=== PATIENT | female | born 1960 | race Caucasian/White ===

== ENCOUNTER 2017-04-26 10:44 | Inpatient (IN) | payer OTHER ==
[~2017-04-26] VITALS: Ht 152.4 cm; Wt 57.0 kg
[2017-04-26] MEDS ORDERED: ALBUTEROL 0.083% (NEB) 2.5 MG/3 ML AMP NEB STA (10:50)
[2017-04-26] MEDS ORDERED: IPRATROPIUM (NEB) 0.5 MG/2.5 ML AMP NEB STA (10:50)
[2017-04-26 11:31] LABS: AADO2 Arterial 231.1 mmHg (7.0-24.0); Allen Test ACCEPTAB; Arterial Base Excess 1.1 mmol/L (-3.0-3); Arterial COHb 2.2 % (0.0-3.0); Arterial Fraction of Oxyhgb 95.2 % (93.0-99.0); Arterial HCO3 25.7 mmol/L (22.0-26.0); Arterial MetHb 0.3 % (0.0-1.5); Arterial Total Hemglobin 11.7 g/dl (12.0-18.0); MODE NEB MASK
[2017-04-26] MEDS ORDERED: TRAM50TA2 PO (11:34)
[2017-04-26] MEDS ORDERED: ASCO500C7 PO (11:35)
[2017-04-26] MEDS ORDERED: RIVA15TA PO (11:35)
[2017-04-26] MEDS ORDERED: ACET-2047 PO (11:37)
[2017-04-26] MEDS ORDERED: FER325 PO (11:37)
[2017-04-26] MEDS ORDERED: CRAN425C2 PO (11:39)
[2017-04-26] MEDS ORDERED: FAMO20TA18 PO (11:39)
[2017-04-26] MEDS ORDERED: DOCU-159 PO (11:39)
[2017-04-26] MEDS ORDERED: GABA300C16 PO (11:39)
[2017-04-26] MEDS ORDERED: MIDO10TA PO (11:40)
[2017-04-26] MEDS ORDERED: MULTI PO (11:40)
[2017-04-26 11:50] LABS: BASOPHILS % 0.5 % (0.0-2.0); EOSINOPHILS # 0.1 10^3/ul (0.0-0.5); EOSINOPHILS % 1.5 % (0.0-7.0); HEMATOCRIT 31.9 % (37.0-47.0); HEMOGLOBIN 9.8 g/dl (12.0-16.0); LYMPHOCYTES # 2.5 10^3/ul (0.8-2.9); LYMPHOCYTES % 29.4 % (15.0-51.0); MEAN CORPUSCULAR HEMOGLOBIN 24.6 pg (29.0-33.0); MEAN CORPUSCULAR HGB CONC 30.7 g/dl (32.0-37.0); MEAN CORPUSCULAR VOLUME 79.9 fl (82.0-101.0); MONOCYTE # 0.6 10^3/ul (0.3-0.9); MONOCYTES % 7.6 % (0.0-11.0); NEUTROPHIL # 5.2 10^3/ul (1.6-7.5); NEUTROPHILS % 60.8 % (39.0-77.0); PLATELET COUNT 591 10^3/UL (140-415); RED BLOOD COUNT 3.99 10^6/ul (4.20-5.40); RED CELL DISTRIBUTION WIDTH 15.9 % (11.5-14.5); WHITE BLOOD COUNT 8.5 10^3/ul (4.8-10.8)
[2017-04-26 11:56] LABS: ADD UMIC YES; UR ASCORBIC ACID 40 mg/dL (NEGATIVE); UR BACTERIA MODERATE /HPF (NONE SEEN); UR BILIRUBIN (Dip) NEGATIVE (NEGATIVE); UR BLOOD (Dip) NEGATIVE (NEGATIVE); UR CLARITY TURBID (CLEAR); UR COLOR AMBER (YELLOW); UR GLUCOSE (Dip) NEGATIVE (NEGATIVE); UR KETONES (Dip) 1+ mg/dL (NEGATIVE); UR LEUKOCYTE ESTERASE (Dip) 3+ Leu/ul (NEGATIVE); UR MUCUS MODERATE /HPF (NONE SEEN); UR NITRITE (Dip) POSITIVE (NEGATIVE); UR NONSQUAMOUS EPITHELIAL CELL 4 /HPF (NONE SEEN); UR RBC > 182 /HPF (0-5); UR SPECIFIC GRAVITY (Dip) 1.026 (1.003-1.030); UR TOTAL PROTEIN (Dip) 3+ mg/dl (NEGATIVE); UR UROBILINOGEN (Dip) NEGATIVE (NEGATIVE)
--- NOTE | 2017-04-26 12:01 | RADRPT ---
PROCEDURE: XR Chest 1 View. CLINICAL INDICATION: Shortness of breath. Possible sepsis. TECHNIQUE: AP view of the chest was obtained. COMPARISON: None. FINDINGS: The cardiomediastinal silhouette is within normal limits. Scattered atelectasis is seen in the bilat eral lower lungs. No consolidations are identified. No pneumothorax is seen. The right costophrenic angle is not included on the obtained film. Old, healed fractures of the lateral right second and t hird ribs are seen. Osseous structures are intact. IMPRESSION: Limited exam with the right costophrenic angle not included on the obtained film. Repeat exam can be considered. Scattered atelectasis in the bilateral lower lungs. RPTAT: AA .Michael Alfaro MD, Date Time Electronically viewed and signed by .Michael Alfaro MD, MD on 04/26/2017 12:01 .P/
[2017-04-26 12:11] LABS: INR 1.09; PROTIME 14.1 Sec (12.2-14.2); PT RATIO 1.1
[2017-04-26 12:12] LABS: PARTIAL THROMBOPLASTIN TIME 49.4 Sec (25.0-35.0)
[2017-04-26 12:16] LABS: ALANINE AMINOTRANSFERASE 18 IU/L (13-69); ALBUMIN 3.6 g/dl (3.3-4.9); ALKALINE PHOSPHATASE 146 IU/L (42-121); ANION GAP 14 (8-16); ASPARTATE AMINO TRANSFERASE 23 IU/L (15-46); BILIRUBIN,INDIRECT 0.1 mg/dl (0-1.1); BILIRUBIN,TOTAL 0.1 mg/dl (0.2-1.3); BLOOD UREA NITROGEN 15 mg/dl (7-20); CALCIUM 9.4 mg/dl (8.4-10.2); CARBON DIOXIDE 27 mmol/L (21-31); CHLORIDE 105 mmol/L (97-110); CREATININE 0.35 mg/dl (0.44-1.00); GLUCOSE 106 mg/dl (70-220); POTASSIUM 3.8 mmol/L (3.5-5.1); SODIUM 142 mmol/L (135-144); TOTAL PROTEIN 8.1 g/dl (6.1-8.1)
[2017-04-26] MEDS ORDERED: SODIUM CHLORIDE 0.9% 1L BAG IV* STA (12:23)
[2017-04-26] MEDS ORDERED: CEFEPIME 2GM/50 ML (PMX) 50 ML IVPB STA (12:23)
[2017-04-26 12:26] LABS: B-TYPE NATRIURETIC PEPTIDE 204 PG/ML (0-125)
[2017-04-26 12:27] LABS: TROPONIN-I < 0.012 ng/ml (0.00-0.12)
[2017-04-26] MEDS ORDERED: VANCOMYCIN 1 GM (PMX) 250 ML IVPB ONE (12:30)
--- NOTE | 2017-04-26 13:16 | ERD ---
ER Documentation Chief Complaint Chief Complaint Pt BIB RA [id number] from [facility] facility with c/o SOB. HPI This is a 56-year-old female with a history of quadriplegia who [facility] with shortness of breath. EMS reports that she was 77% on room air at [facility] responsive to breathing treatment. The patient does describe shortness of breath, unclear duration. She denies any chest pain or pleuritic pain. She denies history of DVT. She has never had a visit to [facility] before. No fever reported. ROS All systems reviewed and are negative except as per history of present illness. Medications Home Meds Reported Medications Multivitamins* (Theragran*) 1 Tab Tab, 1 TAB PO DAILY, TAB 04/26/17 Midodrine* (Midodrine*) 10 Mg Tablet, 10 MG PO TID, TAB 04/26/17 Gabapentin* (Gabapentin*) 300 Mg Capsule, 600 MG PO TID, #180 CAP 04/26/17 Famotidine* (Famotidine*) 20 Mg Tablet, 20 MG PO DAILY, #30 TAB 04/26/17 Docusate Sodium* (Docusate Sodium*) 100 Mg Capsule, 100 MG PO BID, #60 CAP 04/26/17 Cranberry Extract (Cranberry) 425 Mg Capsule, 425 MG PO DAILY, CAP 04/26/17 Acetaminophen* (Acetaminophen*) 650 Mg Tablet, 650 MG PO Q4 Y for PAIN AND OR ELEVATED TEMP, #30 TAB 04/26/17 Ferrous Sulfate* (Ferrous Sulfate*) 325 Mg Tabec, 325 MG PO TID, TAB 04/26/17 Rivaroxaban* (Xarelto*) 15 Mg Tablet, 15 MG PO WITH BREAKFAST DINNE, TAB 04/26/17 Ascorbic Acid* (Vitamin C*) 500 Mg Capsule.sa, 500 MG PO DAILY, CAP 04/26/17 Tramadol HCl (Tramadol HCl) 50 Mg Tablet, 50 MG PO Q8 Y for PAIN, #120 TAB 04/26/17 Allergies Allergies: Coded Allergies: fish derived (Verified Allergy, Severe, 04/26/17) shellfish derived (Verified Allergy, Unknown, 04/26/17) PMhx/Soc History of Surgery: Yes (C-Spine surgery) Anesthesia Reaction: No Hx 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 Disorder: Yes (Quaddriplegia, nuerologic bladder) Hx Respiratory Disorders: No Hx Cardiac Disorders: Yes (hypotension.) Hx Psychiatric Problems: No Hx Miscellaneous Medical Probl: Yes (GERD,) Hx Alcohol Use: No Hx Substance Use: No Hx Tobacco Use: No Smoking Status: Former smoker FmHx Family History: No diabetes Physical Exam Vitals Vital Signs Date Time Temp Pulse Resp B/P Pulse Ox O2 Delivery O2 Flow Rate FiO2 04/26/17 13:03 97.9 92 18 117/58 100 Nasal Cannula 2.0 04/26/17 11:30 2.0 04/26/17 11:04 2.0 04/26/17 11:04 100 18 99 Nasal Cannula 2.0 04/26/17 11:04 97.6 99 20 98/61 100 Physical Exam General: Slight increased work of breathing Head: Normocephalic, atraumatic. Eyes: Pupils equally reactive, EOM intact ENT: Moist mucous membranes Neck: Supple, no lymphadenopathy Respiratory: Diffuse rhonchi, slight increased work of breathing and tachypnea Cardiovascular: Slight tachycardia, no murmurs, rubs, or gallops Abdominal: Soft, non-tender, non-distended, no peritoneal signs : Deferred MSK: Limited movement of all 4 extremities which appears to be baseline, no bony abnormalities Neurologic: Limited exam, conversive, limited movement of all 4 extremities Skin: No rash, no significant breakdown Psych: Unable to assess Result Diagram: 04/26/17 1110 04/26/17 1110 Results 24 hrs Laboratory Tests Test 04/26/17 10:50 04/26/17 11:10 Blood Gas Specimen Source Blood arterial Arterial Blood Date Drawn 04/26/2017 11:20:30 AM Arterial Blood pH (Temp corrected) 7.419 Arterial Blood pCO2 (Temp correct) 40.6mmhg Arterial Blood pO2 (Temp corrected) 101.4mmHG Arterial Blood HCO3 25.7mmol/L Arterial Blood Base Excess 1.1mmol/L Arterial Blood Oxygen Saturation 97.6mmHG Tyler Test ACCEPTAB Arterial Blood Gas Puncture Site Right Radial Arterial Blood Carboxyhemoglobin 2.2% Arterial Blood Methemoglobin 0.3% Blood Gas A-a O2 Differential 231.1mmHg Oxyhemoglobin Percent 95.2% Total Hemoglobin 11.7g/dl Blood Gas Temperature 37.0C Blood Gas Modality NEB MASK FiO2 53.0% Blood Gas Notified Whom JLD Blood Gas Notified Time 04/26/2017 11:31:16 AM White Blood Count 8.510^3/ul Red Blood Count 3.9910^6/ul Hemoglobin 9.8g/dl Hematocrit 31.9% Mean Corpuscular Volume 79.9fl Mean Corpuscular Hemoglobin 24.6pg Mean Corpuscular Hemoglobin Concent 30.7g/dl Red Cell Distribution Width 15.9% Platelet Count 55924^3/UL Mean Platelet Volume 9.0fl Neutrophils % 60.8% Lymphocytes % 29.4% Monocytes % 7.6% Eosinophils % 1.5% Basophils % 0.5% Nucleated Red Blood Cells % 0.0/100WBC Neutrophils # 5.210^3/ul Lymphocytes # 2.510^3/ul Monocytes # 0.610^3/ul Eosinophils # 0.110^3/ul Basophils # 0.010^3/ul Nucleated Red Blood Cells # 0.010^3/ul Prothrombin Time 14.1Sec Prothrombin Time Ratio 1.1 INR International Normalized Ratio 1.09 Activated Partial Thromboplast Time 49.4Sec Urine Color SUNSHINE Urine Clarity TURBID Urine pH 8.0 Urine Specific [place] 1.026 Urine Ketones 1+mg/dL Urine Nitrite POSITIVEmg/dL Urine Bilirubin NEGATIVEmg/dL Urine Urobilinogen NEGATIVEmg/dL Urine Leukocyte Esterase 3+Castillo/ul Urine Microscopic RBC > 182/HPF Urine Microscopic WBC > 182/HPF Urine Bacteria MODERATE/HPF Urine Mucus MODERATE/HPF Urine Hemoglobin NEGATIVEmg/dL Urine Glucose NEGATIVEmg/dL Urine Total Protein 3+mg/dl Sodium Level 142mmol/L Potassium Level 3.8mmol/L Chloride Level 105mmol/L Carbon Dioxide Level 27mmol/L Anion Gap 14 Blood Urea Nitrogen 15mg/dl Creatinine 0.35mg/dl Glucose Level 106mg/dl Lactic Acid Level 1.2mmol/L Calcium Level 9.4mg/dl Total Bilirubin 0.1mg/dl Direct Bilirubin 0.00mg/dl Indirect Bilirubin 0.1mg/dl Aspartate Amino Transf (AST/SGOT) 23IU/L Alanine Aminotransferase (ALT/SGPT) 18IU/L Alkaline Phosphatase 146IU/L Troponin I < 0.012ng/ml B-Type Natriuretic Peptide 204PG/ML Total Protein 8.1g/dl Albumin 3.6g/dl Globulin 4.50g/dl Albumin/Globulin Ratio 0.80 Current Medications Medications (Trade) Dose Ordered Sig/[place] Route PRN Reason Start Time Stop Time Status Last Admin Dose Admin Albuterol (Proventil 0.083% (Neb)) 2.5 mg ONCE STAT NEB 04/26/17 10:50 04/26/17 10:52 DC 04/26/17 11:03 Ipratropium [place] (Atrovent 0.02% (Neb)) 0.5 mg ONCE STAT NEB 04/26/17 10:50 04/26/17 10:52 DC 04/26/17 11:03 Sodium Chloride 1770 ml 1,770 ml BOLUS OVER 2 HOURS STAT IV* 04/26/17 12:23 04/26/17 12:25 DC 04/26/17 12:23 Cefepime HCl 50 ml @ 100 mls/hr ONCE STAT IVPB 04/26/17 12:23 04/26/17 12:52 DC 04/26/17 11:30 Vancomycin HCl (Vancocin) 250 ml @ 125 mls/hr ONCE ONCE IVPB 04/26/17 12:30 04/26/17 14:29 04/26/17 12:30 Ondansetron HCl (Zofran Inj) 4 mg BRIDGE ORDER PRN IV NAUSEA AND/OR VOMITING 04/26/17 14:00 04/27/17 13:59 Acetaminophen (Tylenol Tab) 650 mg ER BRIDGE PRN PO MILD PAIN/FEVER 04/26/17 14:00 04/27/17 13:59 IV Flush 10 ml 10 ml STK-MED ONCE .ROUTE 04/26/17 13:35 04/26/17 13:36 DC 04/26/17 14:16 Sodium Chloride (NS) 100 ml @ ud STK-MED ONCE .ROUTE 04/26/17 13:35 04/26/17 13:36 DC 04/26/17 14:16 Iodixanol (Visipaque Locm) 100 ml STK-MED ONCE .ROUTE 04/26/17 13:35 04/26/17 13:36 DC 04/26/17 14:16 Procedures/MDM EKG, MONITORS, & DIAGNOSTIC IMAGING: EKG: I reviewed and interpreted a 12-lead EKG. Rhythm: Normal sinus rhythm Ectopy: None Intervals: No abnormalities ST segments: No elevations or depressions T waves: No contiguous inversions Chest x-ray: I reviewed and interpreted a 1 view of the chest Mediastinum: No enlargement Cardiac silhouette: No cardiomegaly Airspace: Mild interstitial process but no focal infiltrates, limited study Bones: No evidence of fracture CTPA: PENDING LAB INTERPRETATION: No significant leukocytosis, anemia, unclear baseline platelets of 591 consistent with acute phase reactant, no coagulopathy, normal lactic acid of 1.2 , normal electrolytes, negative troponin MEDICAL DECISION MAKING: She presents with shortness of breath. Her lung exam is very concerning for pneumonia, likely healthcare associated pneumonia. The patient is asking for breathing treatment. It was reported that she was satting 77%. However upon arrival the patient is always in the 90s. This does raise the concern for pneumonia and the patient will benefit from sepsis screening. However, my concern is of the patient's chest x-ray does not fit her level of hypoxia. Given the fact that the patient is bedridden this does raise my concern for pulmonary embolism I believe his CTPA would be appropriate. This additionally better characterize her lung findings. The patient additionally is found to have significant urinary tract infection. I believe empiric antibiotics would be appropriate. The patient was written for 30 cc/kg bolus of saline. No evidence of heart failure history of heart failure. The patient was given vancomycin and cefepime. She was given a breathing treatment does have improved respiratory effort and is now resting comfortably not requiring intubation. In the emergency department the patient only has 1 out of 4 Sirs criteria therefore this is not consistent with a diagnosis of sepsis. ER COURSE: See above. CTPA pending at the time of signout. The patient was endorsed to the oncoming provider and the admitting team knows to follow-up on the study. Her hemodynamics have improved. I kept the patient and/or family informed of laboratory and diagnostic imaging results throughout the emergency room course. DISPOSITION PLAN: Medical surgical admission CONSULTATION: Accepting care team and consultations: I discussed the current laboratory data, diagnostic imaging and emergency care provided. Admitting team: Dr. Trujillo Admitting team indication: Insurance directed Departure Diagnosis: Primary Impression: Urinary tract infection Urinary tract infection type: acute cystitis Hematuria presence: without hematuria Qualified Code: N30.00 - Acute cystitis without hematuria Additional Impressions: Healthcare-associated pneumonia Hypoxia Condition: Stable STEF TESFAYE MD Apr 26, 2017 13:16
[2017-04-26] MEDS ORDERED: SOD CHLORIDE 0.9% 100 ML ONE (13:35)
[2017-04-26] MEDS ORDERED: IODIXANOL LOCM 100 ML BTL ONE (13:35)
[2017-04-26] MEDS ORDERED: ONDANSETRON 4 MG INJ IV PRN (14:00)
[2017-04-26] MEDS ORDERED: ACETAMINOPHEN 325 MG TAB PO PRN (14:00)
--- NOTE | 2017-04-26 14:26 | RADRPT ---
PROCEDURE: CTA Chest and pulmonary angiogram. CLINICAL INDICATION: Chest pain and shortness of breath. TECHNIQUE: CT scan of the chest and CT pulmonary angiogram was performed on a multidetector high-r esolution CT scanner. High-resolution thin slice coronal and sagittal imaging was obtained from the axial source images. 3-D volumetric rendered post processing was performed as well. The patient w as examined following the uncomplicated intravenous administration of 90 cc of Visipaque 320. The im ages were reviewed on a PACS workstation. The total exam CTDI equals 14.08, and 5.73 and the total e xam DLP equals 201.0 mGy-cm. One or more of the following dose reduction techniques were used: Automated exposure control. Adjustment of the mA and/or kV according to patient size. Use of iterative reconstruction technique. COMPARISON: No prior studies are available for comparison. FINDINGS: CT chest: Extensive centrilobular emphysema more evident in the upper lungs is present. Bibasilar atelectasis is noted. No suspicious pulmonary nodules are identified. The central tracheobronchial tree is clear . The mediastinum is unremarkable without evidence for mass or lymphadenopathy. The vascular structur es of the mediastinum are normal in course and caliber. The heart size is normal without pericardia l thickening or effusion. The axillary, subpectoral, and supraclavicular regions are unremarkable. Imaging obtained through the upper abdomen is equally unremarkable. The adrenal glands are symmetri marlen normal. The surrounding chest wall is unremarkable. Old right lateral second and third rib fr actures are present. The osseous structures are unremarkable. CT pulmonary angiogram: No thrombus, clot, filling defect, or pulmonary web is identified. The pulmonary arteries are tana l in caliber and morphology. No filling defect is present to suggest pulmonary embolism. There is no evidence for pulmonary arterial hypertension. IMPRESSION: 1. No evidence for pulmonary embolism. 2. Extensive centrilobular emphysema. 3. Bibasilar atelectasis. RPTAT: BB .Magui Day MD, Date Time Electronically viewed and signed by .Magui Day MD, on 04/26/2017 14:25 .O/
[2017-04-26 15:00] VITALS: TEMP 97.9
[2017-04-26] MEDS ORDERED: CEFTRIAXONE 1 GM/50 ML (PMX) 50 ML IVPB SCH (15:00)
[2017-04-26] MEDS ORDERED: NACL 0.9% 3 ML SYG IV SCH (15:00)
[2017-04-26] MEDS ORDERED: ALBUTEROL/IPRATROPIUM (NEB) 3 ML AMP HHN PRN (15:00)
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
--- NOTE | 2017-04-26 15:49 | RADRPT ---
PROCEDURE: US Lower extremity Venous. CLINICAL INDICATION: Bilateral lower extremity edema TECHNIQUE: Multiple sonographic images of the bilateral lower extremity deep venous system was obt ained utilizing grayscale, color-flow, compressive sonography and doppler imaging with augmentation. The images were reviewed on a PACS workstation. COMPARISON: None. FINDINGS: There is normal compressibility and flow within the bilateral common femoral, femoral , posterior ti bial and popliteal veins. RPTAT: AA IMPRESSION: No sonographic evidence for deep venous thrombosis. .Ortiz Cronin MD, MD Date Time Electronically viewed and signed by .Ortiz Cronin MD, on 04/26/2017 15:49 .S/
[2017-04-26 16:20] VITALS: BP 95/52; PULSE 100; RESP 16
[2017-04-26 16:36] LABS: IRON 18 ug/dl (35-150)
[2017-04-26 16:45] LABS: TOTAL IRON BINDING CAPACITY 225 ug/dl (241-421)
[2017-04-26 17:09] LABS: THYROID STIMULATING HORMONE 1.6 MIU/L (0.465-4.680)
[2017-04-26 17:13] LABS: FERRITIN 49.9 ng/ml (11.1-264.0)
[2017-04-26 17:44] LABS: BARBITURATES Negative (NEGATIVE); BENZODIAZEPINES Negative (NEGATIVE); CANNABINOIDS Positive (NEGATIVE); COCAINE Negative (NEGATIVE); OPIATES Negative (NEGATIVE)
[2017-04-26 18:22] VITALS: Ht 152.4 cm; Wt 57.0 kg
[2017-04-26] MEDS: RIVAROXABAN 15 MG TABLET PO SCH (18:38)
[2017-04-26 20:49] VITALS: BP 133/69; RESP 20
[2017-04-26] MEDS: ALBUTEROL/IPRATROPIUM (NEB) 3 ML AMP HHN SCH (21:00)
[2017-04-26] MEDS: GABAPENTIN 300 MG CAP PO SCH (22:14)
[2017-04-26] MEDS: DOCUSATE SODIUM 100 MG CAP PO SCH (22:14)
[2017-04-26] MEDS: MIDODRINE 5 MG TAB PO SCH (22:15)
[2017-04-26] MEDS: FERROUS SULFATE (EC) 325 MG TAB PO SCH (22:15)
[2017-04-26] MEDS ORDERED: hydrALAzine 20 MG INJ IV PRN (22:33)
[2017-04-27] VITALS: BP 141/65; PULSE 98
[2017-04-27 01:55] VITALS: BP 74/45; RESP 18
[2017-04-27] MEDS ORDERED: SOD CHLORIDE 0.9% 500 ML IV ONE ×2 (03:30→04:30)
[2017-04-27 05:54] LABS: BASOPHILS % 0.2 % (0.0-2.0); EOSINOPHILS # 0.2 10^3/ul (0.0-0.5); EOSINOPHILS % 2.4 % (0.0-7.0); HEMATOCRIT 25.3 % (37.0-47.0); HEMOGLOBIN 7.9 g/dl (12.0-16.0); LYMPHOCYTES # 2.4 10^3/ul (0.8-2.9); LYMPHOCYTES % 39.4 % (15.0-51.0); MEAN CORPUSCULAR HEMOGLOBIN 25.6 pg (29.0-33.0); MEAN CORPUSCULAR HGB CONC 31.2 g/dl (32.0-37.0); MEAN CORPUSCULAR VOLUME 82.1 fl (82.0-101.0); MEAN PLATELET VOLUME 8.9 fl (7.4-10.4); MONOCYTE # 0.6 10^3/ul (0.3-0.9); MONOCYTES % 9.4 % (0.0-11.0); NEUTROPHILS % 48.3 % (39.0-77.0); PLATELET COUNT 530 10^3/UL (140-415); RED BLOOD COUNT 3.08 10^6/ul (4.20-5.40); RED CELL DISTRIBUTION WIDTH 15.9 % (11.5-14.5); WHITE BLOOD COUNT 6.2 10^3/ul (4.8-10.8)
[2017-04-27] MEDS ORDERED: MIDODRINE 5 MG TAB PO ONE (06:00)
[2017-04-27 06:30] LABS: MAGNESIUM 1.8 mg/dl (1.7-2.5); PHOSPHORUS 3.7 mg/dl (2.5-4.9)
[2017-04-27 06:49] LABS: ALBUMIN 2.8 g/dl (3.3-4.9); ALBUMIN/GLOBULIN RATIO 0.7; BILIRUBIN,INDIRECT 0.1 mg/dl (0-1.1); BILIRUBIN,TOTAL 0.1 mg/dl (0.2-1.3); CALCIUM 8.2 mg/dl (8.4-10.2); CREATININE 0.33 mg/dl (0.44-1.00); POTASSIUM 3.8 mmol/L (3.5-5.1); TOTAL PROTEIN 6.8 g/dl (6.1-8.1)
[2017-04-27 07:57] VITALS: BP 97/55; RESP 20
[2017-04-27] MEDS: ALBUTEROL/IPRATROPIUM (NEB) 3 ML AMP HHN SCH ×4 (09:00→20:08)
[2017-04-27] MEDS: FERROUS SULFATE (EC) 325 MG TAB PO SCH ×3 (09:26→21:39)
[2017-04-27] MEDS: MULTIVITAMINS THERAPEUTIC TAB PO SCH (09:26)
[2017-04-27] MEDS: ASCORBIC ACID 500 MG TAB PO SCH (09:27)
[2017-04-27] MEDS: FAMOTIDINE 20 MG TAB PO SCH (09:27)
[2017-04-27] MEDS: DOCUSATE SODIUM 100 MG CAP PO SCH ×2 (09:27→21:38)
[2017-04-27] MEDS: GABAPENTIN 300 MG CAP PO SCH ×3 (09:27→21:39)
[2017-04-27] MEDS: RIVAROXABAN 15 MG TABLET PO SCH ×2 (09:28→17:45)
[2017-04-27] MEDS: MIDODRINE 5 MG TAB PO SCH ×3 (09:28→21:39)
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
[2017-04-27 13:56] VITALS: BP 96/58; PULSE 94
[2017-04-27 14:00] VITALS: BP 96/54; RESP 18
[2017-04-27] MEDS: SODIUM HYPOCHLORITE 0.125% 473 ML BTL IRR SCH (14:30)
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
[2017-04-27 20:19] VITALS: BP 101/51; RESP 19
[2017-04-27] MEDS: CEFEPIME 1GM/50 ML (PMX) 50 ML IVPB SCH (21:37)
[2017-04-28] MEDS ORDERED: SOD CHLORIDE 0.9% 500 ML IV ONE (02:30)
[2017-04-28] MEDS ORDERED: MIDODRINE 5 MG TAB PO ONE (02:30)
[2017-04-28 02:41] VITALS: BP 86/54; RESP 19
[2017-04-28 07:15] VITALS: BP 85/56; RESP 18
[2017-04-28] MEDS: ALBUTEROL/IPRATROPIUM (NEB) 3 ML AMP HHN SCH ×4 (08:00→21:00)
[2017-04-28] MEDS: ASCORBIC ACID 500 MG TAB PO SCH (10:18)
[2017-04-28] MEDS: CEFEPIME 1GM/50 ML (PMX) 50 ML IVPB SCH ×2 (10:18→21:41)
[2017-04-28] MEDS: GABAPENTIN 300 MG CAP PO SCH ×3 (10:18→21:41)
[2017-04-28] MEDS: FERROUS SULFATE (EC) 325 MG TAB PO SCH ×3 (10:19→21:41)
[2017-04-28] MEDS: DOCUSATE SODIUM 100 MG CAP PO SCH ×2 (10:19→21:41)
[2017-04-28] MEDS: FAMOTIDINE 20 MG TAB PO SCH (10:20)
[2017-04-28] MEDS: MULTIVITAMINS THERAPEUTIC TAB PO SCH (10:20)
[2017-04-28] MEDS: MIDODRINE 5 MG TAB PO SCH ×3 (10:21→21:41)
--- NOTE | 2017-04-28 12:09 | PN ---
Date/Time of Note Date/Time of Note DATE: 04/28/17 TIME: 12:06 Assessment/Plan Lines/Catheters IV C[facility]ter Type (from [facility] Saline Lock Jacques in Place (from [facility]): Yes Assessment/Plan Chief Complaint/Hosp Course 1. Multiple wounds: 2/2 immobility; -debridement prn -local care bid -frequent turning and off-loading -low air loss mattress -vitamin c -short term zinc -optimize nutrition -cultures pending 2. UTI: -abx per sensitivity -frequent bladder emptying/cath care 3. Acute hypoxic respiratory failure: CXR and CT noted; currently comfortable on nasal cannula -BD's -pulm toilet -monitor 4. Hypochromic normocytic anemia: -monitor -transfuse as needed 5. Hypocalcemia: nutritional +/- inflammation +/- other -nutrition optimization -as above Thank you. Patient seen and examined in collaboration with Dr. Mike Mota. Problems: Subjective 24 Hr Interval Summary Feels well. Appears comfortable. No supplemental O2 at the moment. No fevers, chills, sob, congested cough, cp, palpitations, gar, dizziness, n/v/d/dysuria. Exam/Review of Systems Vital Signs Vitals Vital Signs Date Time Temp Pulse Resp B/P Pulse Ox O2 Delivery O2 Flow Rate FiO2 04/28/17 07:15 98.5 84 18 85/56 97 04/27/17 20:00 Nasal Cannula 2.0 04/27/17 18:24 32 Intake and Output 04/27/17 04/27/17 04/28/17 15:00 23:00 07:00 Intake Total 1050 ml 980 ml Output Total 300 ml 550 ml Balance 750 ml 430 ml Exam Free Text/Dictation Constitutional: alert, oriented Psych: nl mood/affect Head: atraumatic, normocephalic Eyes: nl lids, nl sclera ENMT: mucosa pink and moist, nl nasal mucosa & septum Neck: non-tender, supple Respiratory: diminished breath sounds Cardiovascular: nl pulses, regular rate and rhythm Gastrointestinal: non-tender, soft Genitourinary - Female: nl external genitalia Musculoskeletal: muscle weakness, other (bilat foot drop), No muscle tone Extremities: normal pulses, No edema 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: nl mental status, nl speech, other (paraplegia; hand contractures ) Skin: other (hip and ischial wounds (draining mod drainage; malodorous)) Results Result Diagram: 04/27/17 0429 04/27/17 0429 JOAN CARLSON NP Apr 28, 2017 12:09
[2017-04-28] MEDS: RIVAROXABAN 15 MG TABLET PO SCH ×2 (12:47→23:53)
[2017-04-28] MEDS: SODIUM HYPOCHLORITE 0.125% 473 ML BTL IRR SCH (12:50)
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
[2017-04-28 14:00] VITALS: BP 97/65; RESP 18
[2017-04-28] MEDS: HYDROCODONE/APAP (5/325) TAB PO PRN ×2 (14:33→22:02)
--- NOTE | 2017-04-28 18:42 | PN ---
DATE: 04/28/2017 SUBJECTIVE: No events overnight. The patient is awake, feels good. Denies pain, discomfort. No f obdulia. LABORATORY: No labs this morning. MICROBIOLOGY: Urine culture growing Providencia stuartii and gram-negative rods. Blood cultures pr eliminary negative. DIAGNOSTICS: CT of the chest on admission revealed no evidence of PE. Extensive centrilobular emph ysema and bibasilar atelectasis. Ultrasound of the lower extremities revealed no DVT. ANTIMICROBIALS: The patient is on cefepime. PHYSICAL EXAMINATION: GENERAL: Middle-aged, chronically ill-appearing, -[place] woman who is alert, in no distres s. HEENT: Head atraumatic, normocephalic. Sclerae anicteric. Buccal mucosa pink, with white thrush o n her tongue. NECK: Supple. CHEST: Rise symmetrical. Breath sounds diminished to bases. HEART: S1, S2. ABDOMEN: Soft. Bowel tones present. EXTREMITIES: Wasted without cyanosis. ASSESSMENT: 1. Urinary tract infection. 2. Multiple wounds. 3. Quadriplegia. 4. Status post acute hypoxemic respiratory failure. 5. Anemia. 6. Deep venous thrombosis. PLAN: The patient remains stable on appropriate antibiotics. Pending final cultures. Continue loc al wound care as per surgical recommendations. Dictated By: MARCIN GALVEZ HOTEL MANAGER for ELIEL ÁLVAREZ/EUGENIO Conf#: [id number] DID#: [id number]
[2017-04-28 20:51] VITALS: BP 94/54; RESP 19
[2017-04-28 22:00] VITALS: BP 112/67
[2017-04-29 02:06] VITALS: BP 89/47; RESP 18
[2017-04-29 03:00] VITALS: BP 99/58
[2017-04-29 07:35] VITALS: BP 79/50; RESP 18
[2017-04-29] MEDS: ALBUTEROL/IPRATROPIUM (NEB) 3 ML AMP HHN SCH ×4 (09:00→20:41)
[2017-04-29] MEDS: CEFEPIME 1GM/50 ML (PMX) 50 ML IVPB SCH ×2 (09:58→21:37)
[2017-04-29] MEDS: RIVAROXABAN 15 MG TABLET PO SCH ×2 (09:58→19:43)
[2017-04-29] MEDS: MULTIVITAMINS THERAPEUTIC TAB PO SCH (09:58)
[2017-04-29] MEDS: ASCORBIC ACID 500 MG TAB PO SCH (09:58)
[2017-04-29] MEDS: FAMOTIDINE 20 MG TAB PO SCH (09:58)
[2017-04-29] MEDS: MIDODRINE 5 MG TAB PO SCH ×3 (09:59→21:38)
[2017-04-29] MEDS: GABAPENTIN 300 MG CAP PO SCH ×3 (09:59→21:38)
[2017-04-29] MEDS: FERROUS SULFATE (EC) 325 MG TAB PO SCH ×3 (09:59→21:38)
[2017-04-29] MEDS: DOCUSATE SODIUM 100 MG CAP PO SCH ×2 (09:59→21:38)
[2017-04-29] MEDS: SODIUM HYPOCHLORITE 0.125% 473 ML BTL IRR SCH (10:00)
[2017-04-29] MEDS: HYDROCODONE/APAP (5/325) TAB PO PRN (15:02)
--- NOTE | 2017-04-29 16:46 | OPR ---
Date/Time of Note Date/Time of Note DATE: 04/29/17 TIME: 16:38 Operative Report Free Text/Dictation Pre-Operative Diagnosis 1. 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 Left ischium stage 4 pressure ulcer with necrotic tissue, 2x1.5cm Post-Operative Diagnosis 1. Right ischium stage 4 pressure ulcer with necrotic tissue including bone, 3x6cm 2. Left ischium stage 4 pressure ulcer with necrotic tissue including bone, 2x1.5cm Operative Report Details Procedures Performed 1. Excisional debridement of right ischium skin, subcutaneous, muscle and bone. 3x6cm 2. Excisional debridement of left ischium skin, subcutaneous, muscle and bone. 2x1.5cm Complications None Estimated Blood Loss <5ml Specimen None Indication Per notes. Disposition/Tolerance Tolerated procedure well. Description of procedure r/b/a discussed and agreed upon with patient. Patient was positioned appropriately. All pressure points padded on his bed. Area was prepped in sterile manner. Time out done. Using scalpel and curette, the necrotic tissue of skin, subq, muscle and bone of right and left ischials were debrided to healthier edges. Wounds were irrigated and hemostasis obtained. Wounds were packed. Abd pad applied to cover. Preoperative Diagnosis as above Postoperative Diagnosis as above Surgeon see signature line Deli Worker none Anesthesia Type: other (none) Estimated Blood Loss: 0 - 10 ml's Transfusion none Specimen none Grafts/Implants none Complications none Procedure Description as above JOAN CARLSON NP Apr 29, 2017 16:46
--- NOTE | 2017-04-29 16:50 | PN ---
Date/Time of Note Date/Time of Note DATE: 04/29/17 TIME: 16:47 Assessment/Plan Lines/Catheters IV Catheter Type (from [email or web address] Saline Lock Jacques in Place (from [facility] [[email or web address] Yes Assessment/Plan Chief Complaint/Hosp Course 1. Multiple wounds: 2/2 immobility; s/p debridement bilateral ischials 05/09/17 -debridement prn -local care bid -frequent turning and off-loading -low air loss mattress -vitamin c -short term zinc -optimize nutrition -cultures pending 2. UTI: -abx per sensitivity -frequent bladder emptying/cath care 3. Acute hypoxic respiratory failure: CXR and CT noted; currently comfortable without supplemental oxygen -BD's -pulm toilet -monitor 4. Hypochromic normocytic anemia: -monitor -transfuse as needed 5. Hypocalcemia: nutritional +/- inflammation +/- other -nutrition optimization -as above Thank you. Patient seen and examined in collaboration with Dr. Mike Mota. Problems: Subjective 24 Hr Interval Summary S/p bilateral ischial debridement. Feels well. Improved drainage from both wounds. Hypotensive but asymptomatic. No fevers, chills, sob, congested cough, cp, palpitations, gar, dizziness, n/v/d/dysuria. Exam/Review of Systems Vital Signs Vitals Vital Signs Date Time Temp Pulse Resp B/P Pulse Ox O2 Delivery O2 Flow Rate FiO2 04/29/17 08:00 Nasal Cannula 2.0 04/29/17 07:35 98.2 100 18 79/50 100 04/27/17 18:24 32 Intake and Output 04/28/17 04/28/17 04/29/17 15:00 23:00 07:00 Intake Total 50 ml 50 ml 500 ml Output Total 600 ml Balance 50 ml 50 ml -100 ml Exam Free Text/Dictation Constitutional: alert, oriented Psych: nl mood/affect Head: atraumatic, normocephalic Eyes: nl lids, nl sclera ENMT: mucosa pink and moist, nl nasal mucosa & septum Neck: non-tender, supple Respiratory: diminished breath sounds Cardiovascular: nl pulses, regular rate and rhythm Gastrointestinal: non-tender, soft Genitourinary - Female: nl external genitalia Musculoskeletal: muscle weakness, other (bilat foot drop), No muscle tone Extremities: normal pulses, No edema 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: nl mental status, nl speech, other (paraplegia; hand contractures ) Skin: other (hip and ischial wounds (draining mod drainage-improved; improved odor)) Results Result Diagram: 04/27/1742804/27/17 0429 JOAN CARLSON NP Apr 29, 2017 16:50
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
--- NOTE | 2017-04-29 17:43 | CONS ---
Date/Time of Note Date/Time of Note DATE: 04/29/17 TIME: 17:38 Consultation Date/Type/Reason Admit Date/Time Apr 26, 2017 at 13:31 Initial Consult Date SUBJECTIVE: 56 y/o female being treated for Resp.failure and UTI. Multiple pressure ulcers. No events overnight. The patient is awake, feels good. Denies pain, discomfort. No fevers. VS: 79/50 P:100 R: 18 T:98.2 SO2:100% LABORATORY: No labs today. MICROBIOLOGY: Urine culture growing Providencia stuartii and gram-negative rods. Blood cultures preliminary negative. Sacrum ulcer cultures: wOUND CULTURE Preliminary Organism 1 GRAM NEGATIVE SAHRA QUANTITY 2+ DIAGNOSTICS: CT of the chest on admission revealed no evidence of PE. Extensive centrilobular emphysema and bibasilar atelectasis. Ultrasound of the lower extremities revealed no DVT. ANTIMICROBIALS: The patient is on cefepime. PHYSICAL EXAMINATION: GENERAL: Middle-aged, chronically ill-appearing, -[place] woman who is alert, in no distress. HEENT: Head atraumatic, normocephalic. Sclerae anicteric. Buccal mucosa pink , with white thrush on her tongue. NECK: Supple. CHEST: Rise symmetrical. Breath sounds diminished to bases. HEART: S1, S2. ABDOMEN: Soft. Bowel tones present. EXTREMITIES: Wasted without cyanosis. ASSESSMENT: 1. Urinary tract infection. 2. Multiple wounds. 3. Quadriplegia. 4. Status post acute hypoxemic respiratory failure. 5. Anemia. 6. Deep venous thrombosis. 7. Sacral pressure ulcer cellulitis with positive wound cultures. PLAN: The patient remains stable.Awaiting final cultures. Continue current IV antbx. Continue local wound care as per surgical recommendations. Type of Consultation: ID Referring Provider: MANUELITO KUMAR MD Exam/Review of Systems Vital Signs Vitals Vital Signs Date Time Temp Pulse Resp B/P Pulse Ox O2 Delivery O2 Flow Rate FiO2 04/29/17 08:00 Nasal Cannula 2.0 04/29/17 07:35 98.2 100 18 79/50 100 04/27/17 18:24 32 Intake and Output 04/28/17 04/28/17 04/29/17 15:00 23:00 07:00 Intake Total 50 ml 50 ml 500 ml Output Total 600 ml Balance 50 ml 50 ml -100 ml Results Result Diagram: 04/27/17 0429 04/27/17 0429 Medications Medications Current Medications Ondansetron HCl (Zofran Inj) 4 mg Q6H PRN IV NAUSEA AND/OR VOMITING; Start 04/26/17 at 15:00 Acetaminophen/ Hydrocodone Bitart ([place] (5/325)) 1 tab Q6H PRN PO MODERATE PAIN LEVEL 4-6 Last administered on 04/29/17 15:02; Admin Dose 1 TAB; Start at 15:00 Morphine Sulfate (morphine) 2 mg Q4H PRN IV SEVERE PAIN LEVEL 7-10; Start 04/26 at 15:00 Ascorbic Acid (Vitamin C) 500 mg DAILY PO Last administered on 04/29/17 09:58 ; Admin Dose 500 MG; Start 04/27/17 at 09:00 Docusate Sodium (Colace) 100 mg BID PO Last administered on 04/29/17 09:59; Admin Dose 100 MG; Start 04/26/17 at 21:00 Famotidine (Pepcid) 20 mg DAILY PO Last administered on 04/29/17 09:58; Admin Dose 20 MG; Start 04/27/17 at 09:00 Ferrous Sulfate (Ferrous Sulfate (Ec)) 325 mg TID PO Last administered on 14:19; Admin Dose 325 MG; Start 04/26/17 at 21:00 Gabapentin (Neurontin) 600 mg TID PO Last administered on 04/29/17 14:19; Admin Dose 600 MG; Start 04/26/17 at 21:00 Midodrine (Proamatine) 10 mg TID PO Last administered on 04/29/17 14:22; Admin Dose 10 MG; Start 04/26/17 at 21:00 Multivitamins Therapeutic (Theragran) 1 tab DAILY PO Last administered on 09:58; Admin Dose 1 TAB; Start 04/27/17 at 09:00 Hydralazine HCl 10 mg 10 mg Q6 PRN IV ELEVATED SYSTOLIC BP; Start 04/26/17 at 22:33 Cefepime HCl (Maxipime 1gm/50 ml (Pmx)) 50 ml @ 100 mls/hr Q12 IVPB Last administered on 04/29/17 09:58; Admin Dose 100 MLS/HR; Start 04/27/17 at 21:00 Sodium Hypochlorite (Dakin'S (1/4 Strength)) 1 applic DAILY IRR Last administered on 04/29/17t 10:00; Admin Dose 1 APPLIC; Start 04/27/17 at 14:30 Bisacodyl (Dulcolax Supp) 10 mg DAILY PRN [place] CONSTIPATION; Start 04/29/17 at 14 :30 ULISES CROW Apr 29, 2017 17:43
[2017-04-29 19:50] VITALS: BP 113/63; RESP 17
[2017-04-29] MEDS: BISACODYL 10 MG SUPP PR PRN (22:32)
[2017-04-30] VITALS (9 sets, daily range): BP systolic 75–128; BP diastolic 42–63; PULSE 89–95; RESP 18
[2017-04-30] MEDS ORDERED: SOD CHLORIDE 0.9% 500 ML IV ONE (07:00)
[2017-04-30] MEDS: CEFEPIME 1GM/50 ML (PMX) 50 ML IVPB SCH ×2 (08:45→21:00)
[2017-04-30] MEDS: MIDODRINE 5 MG TAB PO SCH ×3 (08:50→21:00)
[2017-04-30] MEDS: ALBUTEROL/IPRATROPIUM (NEB) 3 ML AMP HHN SCH ×4 (09:00→21:00)
[2017-04-30] MEDS: FERROUS SULFATE (EC) 325 MG TAB PO SCH ×3 (10:46→21:01)
[2017-04-30] MEDS: FAMOTIDINE 20 MG TAB PO SCH (10:46)
[2017-04-30] MEDS: ASCORBIC ACID 500 MG TAB PO SCH (10:46)
[2017-04-30] MEDS: GABAPENTIN 300 MG CAP PO SCH ×3 (10:46→21:00)
[2017-04-30] MEDS: MULTIVITAMINS THERAPEUTIC TAB PO SCH (10:46)
[2017-04-30] MEDS: DOCUSATE SODIUM 100 MG CAP PO SCH ×2 (10:46→21:00)
[2017-04-30] MEDS: RIVAROXABAN 15 MG TABLET PO SCH ×2 (10:46→17:58)
--- NOTE | 2017-04-30 12:25 | PN ---
Date/Time of Note Date/Time of Note DATE: 04/30/17 TIME: 12:22 Assessment/Plan Lines/Catheters IV Catheter Type (from [facility]): Peripheral IV Jacques in Place (from [facility]): Yes Assessment/Plan Chief Complaint/Hosp Course 1. Multiple wounds: 2/2 immobility; s/p debridement bilateral ischials 05/09/17 ; cultures noted -debridement prn -local care bid -frequent turning and off-loading -low air loss mattress -vitamin c -short term zinc -optimize nutrition 2. UTI: -abx per sensitivity -frequent bladder emptying/cath care 3. Acute hypoxic respiratory failure: CXR and CT noted; currently comfortable without supplemental oxygen -BD's -pulm toilet -monitor 4. Hypochromic normocytic anemia: -monitor -transfuse as needed 5. Hypocalcemia: nutritional +/- inflammation +/- other -nutrition optimization -as above Thank you. Patient seen and examined in collaboration with Dr. Mike Mota. Problems: Subjective 24 Hr Interval Summary Feels well. No overnight events. Wound cultures notes. No fevers, chills, sob, congested cough, cp, palpitations, gar, dizziness, n/v/d/dysuria. Exam/Review of Systems Vital Signs Vitals Vital Signs Date Time Temp Pulse Resp B/P Pulse Ox O2 Delivery O2 Flow Rate FiO2 04/30/17 10:40 89 97/59 04/30/17 07:29 97.5 18 93 04/29/17 20:30 Nasal Cannula 2.0 04/27/17 18:24 32 Intake and Output 04/29/17 04/29/17 04/30/17 15:00 23:00 07:00 Intake Total 50 ml 500 ml 240 ml Output Total 450 ml 250 ml Balance 50 ml 50 ml -10 ml Exam Free Text/Dictation Constitutional: alert, oriented Psych: nl mood/affect Head: atraumatic, normocephalic Eyes: nl lids, nl sclera ENMT: mucosa pink and moist, nl nasal mucosa & septum Neck: non-tender, supple Respiratory: diminished breath sounds Cardiovascular: nl pulses, regular rate and rhythm Gastrointestinal: non-tender, soft Genitourinary - Female: nl external genitalia Musculoskeletal: muscle weakness, other (bilat foot drop), No muscle tone Extremities: normal pulses, No edema 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: nl mental status, nl speech, other (paraplegia; hand contractures ) Skin: other (hip and ischial wounds (draining min drainage-improved; improved odor)) Results Result Diagram: 04/27/17 0429 04/27/17 0429 JOAN CARLSON NP Apr 30, 2017 12:25
[2017-04-30] MEDS: morphine 2 MG INJ IV PRN ×2 (13:31→21:02)
[2017-04-30] MEDS: SODIUM HYPOCHLORITE 0.125% 473 ML BTL IRR SCH (14:35)
--- NOTE | 2017-04-30 15:32 | CONS ---
Date/Time of Note Date/Time of Note DATE: 04/30/17 TIME: 15:23 Assessment/Plan Assessment/Plan Chief Complaint/Hosp Course ID PROGRESS NOTE CURRENT ABX: Day # => Cefepime 24H INTERVAL SUMMARY * Awake, alert, responsive, denies fevers/chills * DIAGNOSTICS: CT of the chest on admission revealed no evidence of PE. Extensive centrilobular emphysema and bibasilar atelectasis. Ultrasound of the lower extremities revealed no DVT. * MICROBIOLOGY Blood cultures preliminary negative. SACRAL DEBUB: Polymicrobial -> final culture pending * URINE CULTURE Final Organism 1 PROVIDENCIA STUARTII COLONY COUNT >100,000 CFU/ml Organism 2 ESCHERICHIA COLI (ESBL) COLONY COUNT 50,000 - 60,000 CFU/ml . MULTI DRUG RESISTANT ORGANISM P STUARTII ECOLI ESBL M.I.C. RX M.I.C. RX --------- --- --------- --- AMIKACIN <=2 S <=2 S AMPICILLIN >=32 R CEFAZOLIN R CEFEPIME 8 S 4 S CEFOTAXIME R R CIPROFLOXACIN >=4 R >=4 R GENTAMICIN R >=16 R IMIPENEM <=0.25 S LEVOFLOXACIN >=8 R >=8 R NITROFURANTOIN 128 R TOBRAMYCIN R 8 I TRIMETHOPRIM/SULFAMETHOXAZOLE >=320 R >=320 R PIPERACILLIN/TAZOBACTAM 8 S PHYSICAL EXAMINATION: GENERAL: Awake, alert, VSS, NAD HEENT: Unremarkable NECK: Trach midline CHEST: Rise symmetrical, without dyspnea HEART: Pulse RRR ABDOMEN: Soft, benign EXTREMITIES: Warm, bedbound, decubs SKIN: Decubs, sacral decub ID ASSESSMENT 56 yo F w/ PMHx quadriplegia admit with: 1. Urinary tract infection=> Polymicrobial GNR 2. Multiple wounds. * Infected Sacral Decub WOUND CULTURE Preliminary Organism 1 PROTEUS MIRABILIS QUANTITY 2+ Organism 2 GRAM NEGATIVE SAHRA QUANTITY 1+ Organism 3 ENTEROCOCCUS SPECIES QUANTITY ISOLATED FROM BROTH ONLY [facility] RX --------- --- AMPICILLIN >=32 R CEFEPIME 8 S CIPROFLOXACIN >=4 R GENTAMICIN <=1 S LEVOFLOXACIN 4 I TOBRAMYCIN <=1 S TRIMETHOPRIM/SULFAMETHOXAZOLE >=320 R 3. Status post acute hypoxemic respiratory failure. 4. COPD: Emphysema 5. Anemia. 6. Deep venous thrombosis. INVASIVES: PIV ABX ALLERGY: KNDA CURRENT ABX: Day # => Cefepime ID RECOMMENDATIONS 1. Continue current ABX 2. F/U final micro pending . . . Problems: Consultation Date/Type/Reason Admit Date/Time Apr 26, 2017 at 13:31 Initial Consult Date 04/27/17 Type of Consultation: ID Referring Provider: MANUELITO KUMAR MD Exam/Review of Systems Vital Signs Vitals Vital Signs Date Time Temp Pulse Resp B/P Pulse Ox O2 Delivery O2 Flow Rate FiO2 04/30/17 13:48 99.0 75/42 04/30/17 10:40 89 04/30/17 07:29 18 93 04/29/17 20:30 Nasal Cannula 2.0 04/27/17 18:24 32 Intake and Output 04/29/17 04/29/17 04/30/17 15:00 23:00 07:00 Intake Total 50 ml 500 ml 240 ml Output Total 450 ml 250 ml Balance 50 ml 50 ml -10 ml Results Result Diagram: 04/27/17 0429 04/27/17 0429 Medications Medications Current Medications Ondansetron HCl (Zofran Inj) 4 mg Q6H PRN IV NAUSEA AND/OR VOMITING; Start 04/26/17 at 15:00 Acetaminophen/ Hydrocodone Bitart ([place] (5/325)) 1 tab Q6H PRN PO MODERATE PAIN LEVEL 4-6 Last administered on 04/29/17 15:02; Admin Dose 1 TAB; Start at 15:00 Morphine Sulfate (morphine) 2 mg Q4H PRN IV SEVERE PAIN LEVEL 7-10 Last administered on 04/30/17 13:31; Admin Dose 2 MG; Start 04/26/17 at 15:00 Ascorbic Acid (Vitamin C) 500 mg DAILY PO Last administered on 04/30/17 10:46 ; Admin Dose 500 MG; Start 04/27/17 at 09:00 Docusate Sodium (Colace) 100 mg BID PO Last administered on 04/30/17 10:46; Admin Dose 100 MG; Start 04/26/17 at 21:00 Famotidine (Pepcid) 20 mg DAILY PO Last administered on 04/30/17 10:46; Admin Dose 20 MG; Start 04/27/17 at 09:00 Ferrous Sulfate (Ferrous Sulfate (Ec)) 325 mg TID PO Last administered on 14:35; Admin Dose 325 MG; Start 04/26/17 at 21:00 Gabapentin (Neurontin) 600 mg TID PO Last administered on 04/30/17 14:35; Admin Dose 600 MG; Start 04/26/17 at 21:00 Midodrine (Proamatine) 10 mg TID PO Last administered on 04/30/17 13:59; Admin Dose 10 MG; Start 04/26/17 at 21:00 Multivitamins Therapeutic (Theragran) 1 tab DAILY PO Last administered on 10:46; Admin Dose 1 TAB; Start 04/27/17 at 09:00 Hydralazine HCl 10 mg 10 mg Q6 PRN IV ELEVATED SYSTOLIC BP; Start 04/26/17 at 22:33 Cefepime HCl (Maxipime 1gm/50 ml (Pmx)) 50 ml @ 100 mls/hr Q12 IVPB Last administered on 04/30/17 08:45; Admin Dose 100 MLS/HR; Start 04/27/17 at 21:00 Sodium Hypochlorite (Dakin'S (1/4 Strength)) 1 applic DAILY IRR Last administered on 04/30/17 14:35; Admin Dose 1 APPLIC; Start 04/27/17 at 14:30 Bisacodyl (Dulcolax Supp) 10 mg DAILY PRN [place] CONSTIPATION Last administered on 04/29/17 22:32; Admin Dose 10 MG; Start 04/29/17 at 14:30 ALEXIS CASTELLANOS NP Apr 30, 2017 15:32
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
[2017-05-01] VITALS (9 sets, daily range): BP systolic 73–116; BP diastolic 46–64; PULSE 82–89; RESP 16–19
[2017-05-01 05:15] LABS: BASOPHILS % 0.6 % (0.0-2.0); EOSINOPHILS # 0.3 10^3/ul (0.0-0.5); EOSINOPHILS % 4.1 % (0.0-7.0); HEMATOCRIT 30.8 % (37.0-47.0); HEMOGLOBIN 9.4 g/dl (12.0-16.0); LYMPHOCYTES # 3.7 10^3/ul (0.8-2.9); LYMPHOCYTES % 54.6 % (15.0-51.0); MEAN CORPUSCULAR HEMOGLOBIN 24.6 pg (29.0-33.0); MEAN CORPUSCULAR HGB CONC 30.5 g/dl (32.0-37.0); MEAN CORPUSCULAR VOLUME 80.6 fl (82.0-101.0); MEAN PLATELET VOLUME 8.7 fl (7.4-10.4); MONOCYTE # 0.4 10^3/ul (0.3-0.9); MONOCYTES % 6.3 % (0.0-11.0); NEUTROPHIL # 2.3 10^3/ul (1.6-7.5); NEUTROPHILS % 34.1 % (39.0-77.0); PLATELET COUNT 596 10^3/UL (140-415); RED BLOOD COUNT 3.82 10^6/ul (4.20-5.40); RED CELL DISTRIBUTION WIDTH 16.6 % (11.5-14.5); WHITE BLOOD COUNT 6.8 10^3/ul (4.8-10.8)
[2017-05-01] MEDS: HYDROCODONE/APAP (5/325) TAB PO PRN (05:24)
[2017-05-01] MEDS: SODIUM HYPOCHLORITE 0.125% 473 ML BTL IRR SCH (05:25)
[2017-05-01 05:30] LABS: INR 1.25; PROTIME 15.8 Sec (12.2-14.2); PT RATIO 1.2
[2017-05-01 05:31] LABS: PARTIAL THROMBOPLASTIN TIME 65.5 Sec (25.0-35.0)
[2017-05-01 05:38] LABS: ALBUMIN 3.2 g/dl (3.3-4.9); ALBUMIN/GLOBULIN RATIO 0.8; CALCIUM 8.8 mg/dl (8.4-10.2); CREATININE 0.38 mg/dl (0.44-1.00); POTASSIUM 3.7 mmol/L (3.5-5.1); TOTAL PROTEIN 7.2 g/dl (6.1-8.1)
[2017-05-01] MEDS: ALBUTEROL/IPRATROPIUM (NEB) 3 ML AMP HHN SCH ×5 (09:00→23:03)
[2017-05-01] MEDS ORDERED: SOD CHLORIDE 0.9% 250 ML IV ONE (09:00)
[2017-05-01] MEDS: DOCUSATE SODIUM 100 MG CAP PO SCH ×2 (09:41→22:47)
[2017-05-01] MEDS: ASCORBIC ACID 500 MG TAB PO SCH (09:41)
[2017-05-01] MEDS: GABAPENTIN 300 MG CAP PO SCH ×3 (09:41→22:47)
[2017-05-01] MEDS: FAMOTIDINE 20 MG TAB PO SCH (09:41)
[2017-05-01] MEDS: MULTIVITAMINS THERAPEUTIC TAB PO SCH (09:41)
[2017-05-01] MEDS: FERROUS SULFATE (EC) 325 MG TAB PO SCH ×3 (09:41→22:47)
[2017-05-01] MEDS: MIDODRINE 5 MG TAB PO SCH ×3 (09:43→22:13)
[2017-05-01] MEDS: RIVAROXABAN 15 MG TABLET PO SCH ×2 (09:52→18:05)
--- NOTE | 2017-05-01 10:59 | PN ---
Date/Time of Note Date/Time of Note DATE: 05/01/17 TIME: 10:57 Assessment/Plan Lines/Catheters [facility] ([facility] Saline Lock [facility] in Place (from [facility]): Yes Assessment/Plan Chief Complaint/Hosp Course 1. Multiple wounds: 2/2 immobility; s/p debridement bilateral ischials 05/09/17 ; cultures noted -debridement prn -local care bid -frequent turning and off-loading -low air loss mattress -vitamin c -short term zinc -optimize nutrition 2. UTI: -abx per sensitivity -frequent bladder emptying/cath care 3. Acute hypoxic respiratory failure: CXR and CT noted; currently comfortable without supplemental oxygen -BD's -pulm toilet -monitor 4. Hypochromic normocytic anemia: -monitor -transfuse as needed 5. Hypocalcemia: nutritional +/- inflammation +/- other -nutrition optimization -as above Thank you. Patient seen and examined in collaboration with Dr. Mike Mota. Problems: Subjective 24 Hr Interval Summary Feels well. No fevers, chills, sob, congested cough, cp, palpitations, gar, dizziness, n/v/d/dysuria, excessive wound drainage, new wounds. Breathing comfortably without supplemental O2. Exam/Review of Systems Vital Signs Vitals Vital Signs Date Time Temp Pulse Resp B/P Pulse Ox O2 Delivery O2 Flow Rate FiO2 05/01/17 10:00 83 88/53 05/01/17 09:16 21 05/01/17 08:06 97.8 16 99 04/29/17 20:30 Nasal Cannula 2.0 Intake and Output 04/30/17 04/30/17 05/01/17 15:00 23:00 07:00 Intake Total 550 ml 410 ml 240 ml Output Total 350 ml 600 ml Balance 550 ml 60 ml -360 ml Exam Free Text/Dictation Constitutional: alert, oriented Psych: nl mood/affect, pleasant Head: atraumatic, normocephalic Eyes: nl lids, nl sclera ENMT: mucosa pink and moist, nl nasal mucosa & septum Neck: non-tender, supple Respiratory: diminished breath sounds Cardiovascular: nl pulses, regular rate and rhythm Gastrointestinal: non-tender, soft Genitourinary - Female: nl external genitalia Musculoskeletal: muscle weakness, other (bilat foot drop), No muscle tone Extremities: normal pulses, No edema 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: nl mental status, nl speech, other (paraplegia; hand contractures ) Skin: other (hip and ischial wounds (draining min drainage-improved; improved odor)) Results Result Diagram: 05/01/17 04305/01/17 0431 JOAN CARLSON NP May 01, 2017 10:59
[2017-05-01] MEDS: CEFEPIME 1GM/50 ML (PMX) 50 ML IVPB SCH ×2 (11:04→22:13)
--- NOTE | 2017-05-01 13:12 | CONS ---
Date/Time of Note Date/Time of Note DATE: 05/01/17 TIME: 13:10 Consult Date/Type/Reason Admit Date/Time Apr 26, 2017 at 13:31 Initial Consult Date 04/27/17 Type of Consultation: ID Ordering Provider: MANUELITO KUMAR MD Objective Vital Signs Date Time Temp Pulse Resp B/P Pulse Ox O2 Delivery O2 Flow Rate FiO2 05/01/17 11:00 82 87/53 05/01/17 09:16 21 05/01/17 08:06 97.8 16 99 04/29/17 20:30 Nasal Cannula 2.0 Intake and Output 04/30/17 04/30/17 05/01/17 15:00 23:00 07:00 Intake Total 550 ml 410 ml 240 ml Output Total 350 ml 600 ml Balance 550 ml 60 ml -360 ml Results/Medications Result Diagram: 05/01/17 0431 05/01/17 0431 Results 24 hrs Laboratory Tests Test 05/01/17 04:31 White Blood Count 6.8 Red Blood Count 3.82 #L Hemoglobin 9.4 L Hematocrit 30.8 #L Mean Corpuscular Volume 80.6 L Mean Corpuscular Hemoglobin 24.6 L Mean Corpuscular Hemoglobin Concent 30.5 L Red Cell Distribution Width 16.6 H Platelet Count 596 H Mean Platelet Volume 8.7 Neutrophils % 34.1 L Lymphocytes % 54.6 H Monocytes % 6.3 Eosinophils % 4.1 Basophils % 0.6 Nucleated Red Blood Cells % 0.0 Neutrophils # 2.3 Lymphocytes # 3.7 H Monocytes # 0.4 Eosinophils # 0.3 Basophils # 0.0 Nucleated Red Blood Cells # 0.0 Prothrombin Time 15.8 H Prothrombin Time Ratio 1.2 INR International Normalized Ratio 1.25 Activated Partial Thromboplast Time 65.5 H Sodium Level 143 Potassium Level 3.7 Chloride Level 107 Carbon Dioxide Level 28 Anion Gap 12 Blood Urea Nitrogen 10 Creatinine 0.38 L Glucose Level 91 Calcium Level 8.8 Total Bilirubin 0.0 L Direct Bilirubin 0.00 Indirect Bilirubin 0.0 Aspartate Amino Transf (AST/SGOT) 15 Alanine Aminotransferase (ALT/SGPT) 19 Alkaline Phosphatase 127 H Total Protein 7.2 Albumin 3.2 L Globulin 4.00 H Albumin/Globulin Ratio 0.80 Medications Current Medications Ondansetron HCl (Zofran Inj) 4 mg Q6H PRN IV NAUSEA AND/OR VOMITING; Start 04/26/17 at 15:00 Acetaminophen/ Hydrocodone Bitart ([place] (5/325)) 1 tab Q6H PRN PO MODERATE PAIN LEVEL 4-6 Last administered on 05/01/17 05:24; Admin Dose 1 TAB; Start at 15:00 Morphine Sulfate (morphine) 2 mg Q4H PRN IV SEVERE PAIN LEVEL 7-10 Last administered on 04/30/17 21:02; Admin Dose 2 MG; Start 04/26/17 at 15:00; Status Future Hold Ascorbic Acid (Vitamin C) 500 mg DAILY PO Last administered on 05/01/17 09:41 ; Admin Dose 500 MG; Start 04/27/17 at 09:00 Docusate Sodium (Colace) 100 mg BID PO Last administered on 05/01/17 09:41; Admin Dose 100 MG; Start 04/26/17 at 21:00 Famotidine (Pepcid) 20 mg DAILY PO Last administered on 05/01/17 09:41; Admin Dose 20 MG; Start 04/27/17 at 09:00 Ferrous Sulfate (Ferrous Sulfate (Ec)) 325 mg TID PO Last administered on 09:41; Admin Dose 325 MG; Start 04/26/17 at 21:00 Gabapentin (Neurontin) 600 mg TID PO Last administered on 05/01/17 09:41; Admin Dose 600 MG; Start 04/26/17 at 21:00 Midodrine (Proamatine) 10 mg TID PO Last administered on 05/01/17 09:43; Admin Dose 10 MG; Start 04/26/17 at 21:00 Multivitamins Therapeutic (Theragran) 1 tab DAILY PO Last administered on 09:41; Admin Dose 1 TAB; Start 04/27/17 at 09:00 Hydralazine HCl 10 mg 10 mg Q6 PRN IV ELEVATED SYSTOLIC BP; Start 04/26/17 at 22:33 Cefepime HCl (Maxipime 1gm/50 ml (Pmx)) 50 ml @ 100 mls/hr Q12 IVPB Last administered on 05/01/17 11:04; Admin Dose 100 MLS/HR; Start 04/27/17 at 21:00 Sodium Hypochlorite (Dakin'S (1/4 Strength)) 1 applic DAILY IRR Last administered on 05/01/17 05:25; Admin Dose 1 APPLIC; Start 04/27/17 at 14:30 Bisacodyl (Dulcolax Supp) 10 mg DAILY PRN [place] CONSTIPATION Last administered on 04/29/17 22:32; Admin Dose 10 MG; Start 04/29/17 at 14:30 Assessment/Plan Chief Complaint/Hosp Course SUBJECTIVE: No events overnight. Looks comfortable. No fevers. MICROBIOLOGY: Urine culture growing Providencia stuartii and E coli ESBL. Blood cultures preliminary negative. DIAGNOSTICS: CT of the chest on admission revealed no evidence of PE. Extensive centrilobular emphysema and bibasilar atelectasis. Ultrasound of the lower extremities revealed no DVT. ANTIMICROBIALS: Cefepime. PHYSICAL EXAMINATION: GENERAL: Middle-aged, chronically ill-appearing, -[place] woman who is alert, in no distress. HEENT: Head atraumatic, normocephalic. Sclerae anicteric. Buccal mucosa pink , with white thrush on her tongue. NECK: Supple. CHEST: Rise symmetrical. Breath sounds diminished to bases. HEART: S1, S2. ABDOMEN: Soft. Bowel tones present. EXTREMITIES: Wasted without cyanosis. ASSESSMENT: 1. Urinary tract infection. 2. Multiple wounds==> not infected per surgical team, cx + colonized. 3. Quadriplegia. 4. Status post acute hypoxemic respiratory failure. 5. Anemia. 6. Deep venous thrombosis. PLAN: The patient remains stable, continue antibiotics for 7 days total. Continue local wound care as per surgical recommendations. staff Problems: MARCIN GALVEZ NP May 01, 2017 13:12
--- NOTE | 2017-05-01 14:26 | PN ---
Date/Time of Note Date/Time of Note DATE: 05/01/17 TIME: 14:20 Assessment/Plan VTE Prophylaxis VTE Prophylaxis Intervention: other Lines/Catheters IV Catheter Type (from [facility]): Saline Lock Urinary Cath still in place: Yes Reason Cath still needed: urinary retention Assessment/Plan Assessment/Plan 1. Urinary tract infection ESBL E. Coli/proteus mirabilis, on cefepime since , finish 7 days 2. Multiple wounds==> not infected per dw surgical team, cx + colonized. 3. Quadriplegia. 4. Status post acute hypoxemic respiratory failure, improved 5. Anemia. 6. No deep venous thrombosis on venous US or PE on CTA on 04/26/2017 Subjective 24 Hr Interval Summary Free Text/Dictation afebrile. no pain. no SOB Exam/Review of Systems Vital Signs Vitals Vital Signs Date Time Temp Pulse Resp B/P Pulse Ox O2 Delivery O2 Flow Rate FiO2 05/01/17 11:00 82 87/53 05/01/17 09:16 21 05/01/17 08:06 97.8 16 99 04/29/17 20:30 Nasal Cannula 2.0 Intake and Output 04/30/17 04/30/17 05/01/17 15:00 23:00 07:00 Intake Total 550 ml 410 ml 240 ml Output Total 350 ml 600 ml Balance 550 ml 60 ml -360 ml Exam Constitutional: alert, oriented, well developed Psych: nl mood/affect, no complaints Head: atraumatic, normocephalic Eyes: EOMI, PERRL, nl conjunctiva, nl lids, nl sclera ENMT: nl external ears & nose, nl lips & teeth, nl nasal mucosa & septum Neck: non-tender, supple Respiratory: clear to auscultation, normal air movement, No congested cough, No crackles/rales, No diminished breath sounds, No intercostal retraction, No labored breathing, No other, No respirations, No tactile fremitus, No wheezing Cardiovascular: nl pulses, regular rate and rhythm, No S3, No S4, No bruits, No diastolic murmur, No edema, No gallop, No irregular rhythm, No jugular venous distention (JVD), No murmurs/extra sounds, No other, No rub, No systolic murmur Gastrointestinal: nl liver, spleen, non-tender, soft, No ascites, No bowel sounds, No distended, No firm, No hepatomegaly, No mass , No other, No rebound or guarding, No splenomegaly, No surgical scars, No tender Extremities: normal pulses, No calf tenderness, No clubbing, No cyanosis 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3 Basophils # 0.0 Nucleated Red Blood Cells # 0.0 Prothrombin Time 15.8 H Prothrombin Time Ratio 1.2 INR International Normalized Ratio 1.25 Activated Partial Thromboplast Time 65.5 H Sodium Level 143 Potassium Level 3.7 Chloride Level 107 Carbon Dioxide Level 28 Anion Gap 12 Blood Urea Nitrogen 10 Creatinine 0.38 L Glucose Level 91 Calcium Level 8.8 Total Bilirubin 0.0 L Direct Bilirubin 0.00 Indirect Bilirubin 0.0 Aspartate Amino Transf (AST/SGOT) 15 Alanine Aminotransferase (ALT/SGPT) 19 Alkaline Phosphatase 127 H Total Protein 7.2 Albumin 3.2 L Globulin 4.00 H Albumin/Globulin Ratio 0.80 Medications Medications Current Medications Ondansetron HCl (Zofran Inj) 4 mg Q6H PRN IV NAUSEA AND/OR VOMITING; Start 04/26/17 at 15:00 Acetaminophen/ Hydrocodone Bitart ([place] (5/325)) 1 tab Q6H PRN PO MODERATE PAIN LEVEL 4-6 Last administered on 05/01/17 05:24; Admin Dose 1 TAB; Start at 15:00 Morphine Sulfate (morphine) 2 mg Q4H PRN IV SEVERE PAIN LEVEL 7-10 Last administered on 04/30/17 21:02; Admin Dose 2 MG; Start 04/26/17 at 15:00; Status Future Hold Ascorbic Acid (Vitamin C) 500 mg DAILY PO Last administered on 05/01/17 09:41 ; Admin Dose 500 MG; Start 04/27/17 at 09:00 Docusate Sodium (Colace) 100 mg BID PO Last administered on 05/01/17 09:41; Admin Dose 100 MG; Start 04/26/17 at 21:00 Famotidine (Pepcid) 20 mg DAILY PO Last administered on 05/01/17 09:41; Admin Dose 20 MG; Start 04/27/17 at 09:00 Ferrous Sulfate (Ferrous Sulfate (Ec)) 325 mg TID PO Last administered on 09:41; Admin Dose 325 MG; Start 04/26/17 at 21:00 Gabapentin (Neurontin) 600 mg TID PO Last administered on 05/01/17 09:41; Admin Dose 600 MG; Start 04/26/17 at 21:00 Midodrine (Proamatine) 10 mg TID PO Last administered on 05/01/17 09:43; Admin Dose 10 MG; Start 04/26/17 at 21:00 Multivitamins Therapeutic (Theragran) 1 tab DAILY PO Last administered on 09:41; Admin Dose 1 TAB; Start 04/27/17 at 09:00 Hydralazine HCl 10 mg 10 mg Q6 PRN IV ELEVATED SYSTOLIC BP; Start 04/26/17 at 22:33 Cefepime HCl (Maxipime 1gm/50 ml (Pmx)) 50 ml @ 100 mls/hr Q12 IVPB Last administered on 05/01/17 11:04; Admin Dose 100 MLS/HR; Start 04/27/17 at 21:00 Sodium Hypochlorite (Dakin'S (1/4 Strength)) 1 applic DAILY IRR Last administered on 05/01/17 05:25; Admin Dose 1 APPLIC; Start 04/27/17 at 14:30 Bisacodyl (Dulcolax Supp) 10 mg DAILY PRN [place] CONSTIPATION Last administered on 04/29/17 22:32; Admin Dose 10 MG; Start 04/29/17 at 14:30 DESIREE GILBERT MD May 01, 2017 14:26
[2017-05-01] MEDS: SOD CHLORIDE 0.9% 1,000 ML IV SCH (21:00)
[2017-05-01] MEDS ORDERED: SODIUM CHLORIDE 0.9% 250 ML BAG IV* SCH (22:00)
[2017-05-02] VITALS (7 sets, daily range): BP systolic 81–111; BP diastolic 49–75; PULSE 84–96; RESP 16–19
[2017-05-02] MEDS: HYDROCODONE/APAP (5/325) TAB PO PRN (02:18)
[2017-05-02] MEDS: SOD CHLORIDE 0.9% 1,000 ML IV SCH ×2 (07:43→18:02)
[2017-05-02] MEDS: ASCORBIC ACID 500 MG TAB PO SCH (08:26)
[2017-05-02] MEDS: GABAPENTIN 300 MG CAP PO SCH ×3 (08:26→21:07)
[2017-05-02] MEDS: DOCUSATE SODIUM 100 MG CAP PO SCH ×2 (08:26→21:07)
[2017-05-02] MEDS: FERROUS SULFATE (EC) 325 MG TAB PO SCH ×3 (08:26→21:07)
[2017-05-02] MEDS: CEFEPIME 1GM/50 ML (PMX) 50 ML IVPB SCH ×2 (08:26→21:07)
[2017-05-02] MEDS: MULTIVITAMINS THERAPEUTIC TAB PO SCH (08:27)
[2017-05-02] MEDS: FAMOTIDINE 20 MG TAB PO SCH (08:27)
[2017-05-02] MEDS: MIDODRINE 5 MG TAB PO SCH ×3 (08:27→21:10)
[2017-05-02] MEDS: SODIUM HYPOCHLORITE 0.125% 473 ML BTL IRR SCH (08:27)
[2017-05-02] MEDS: RIVAROXABAN 15 MG TABLET PO SCH ×2 (08:35→18:01)
[2017-05-02] MEDS: ALBUTEROL/IPRATROPIUM (NEB) 3 ML AMP HHN SCH ×4 (09:10→21:00)
--- NOTE | 2017-05-02 12:32 | PN ---
Date/Time of Note Date/Time of Note DATE: 05/02/17 TIME: 12:14 Assessment/Plan Lines/Catheters IV Catheter Type (from [facility]): Peripheral IV Jacques in Place (from [facility]): Yes Assessment/Plan Chief Complaint/Hosp Course 1. Multiple wounds: 2/2 immobility; s/p debridement bilateral ischials 05/09/17 ; cultures noted -debridement prn -local care with dakins -frequent turning and off-loading -low air loss mattress -vitamin c -short term zinc -optimize nutrition -abx per sensitivity 2. UTI: -abx per sensitivity -frequent bladder emptying/cath care 3. Acute hypoxic respiratory failure: CXR and CT noted; currently comfortable without supplemental oxygen -BD's -pulm toilet -monitor 4. Hypochromic normocytic anemia: -monitor -transfuse as needed 5. Hypocalcemia: nutritional +/- inflammation +/- other -nutrition optimization -as above Thank you. Patient seen and examined in collaboration with Dr. Mike Mota. Problems: Subjective 24 Hr Interval Summary Feels well. No acute events overnight. No excessive wound drainage. No fevers, chills, sob, congested cough, cp, palpitations, gar, dizziness, n/v/d/dysuria. Exam/Review of Systems Vital Signs Vitals Vital Signs Date Time Temp Pulse Resp B/P Pulse Ox O2 Delivery O2 Flow Rate FiO2 05/02/17 10:52 85 101/57 05/02/17 07:15 97.5 16 95 05/01/17 23:04 21 04/29/17 20:30 Nasal Cannula 2.0 Intake and Output 05/01/17 05/01/17 05/02/17 15:00 23:00 07:00 Intake Total 50 ml 300 ml Output Total 600 ml Balance 50 ml -300 ml Exam Free Text/Dictation Constitutional: alert, oriented Psych: nl mood/affect, pleasant Head: atraumatic, normocephalic Eyes: nl lids, nl sclera ENMT: mucosa pink and moist, nl nasal mucosa & septum Neck: non-tender, supple Respiratory: diminished breath sounds Cardiovascular: nl pulses, regular rate and rhythm Gastrointestinal: non-tender, soft Genitourinary - Female: nl external genitalia Musculoskeletal: muscle weakness, other (bilat foot drop), No muscle tone Extremities: normal pulses, No edema 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: nl mental status, nl speech, other (paraplegia; hand contractures ) Skin: other (hip and ischial wounds (draining min drainage; improved odor)) Results Result Diagram: 05/01/17 0431 05/01/17 0431 JOAN CARLSON NP May 02, 2017 12:32
--- NOTE | 2017-05-02 12:38 | CONS ---
Date/Time of Note Date/Time of Note DATE: 05/02/17 TIME: 12:37 Consult Date/Type/Reason Admit Date/Time Apr 26, 2017 at 13:31 Initial Consult Date 04/27/17 Type of Consultation: ID Ordering Provider: MANUELITO KUMAR MD Objective Vital Signs Date Time Temp Pulse Resp B/P Pulse Ox O2 Delivery O2 Flow Rate FiO2 05/02/17 10:52 85 101/57 05/02/17 07:15 97.5 16 95 05/01/17 23:04 21 04/29/17 20:30 Nasal Cannula 2.0 Intake and Output 05/01/17 05/01/17 05/02/17 15:00 23:00 07:00 Intake Total 50 ml 300 ml Output Total 600 ml Balance 50 ml -300 ml Results/Medications Result Diagram: 05/01/17 0431 05/01/17 0431 Results 24 hrs Laboratory Tests Test 05/02/17 07:19 Lab Scanned Report REFERENCE LAB Medications Current Medications Ondansetron HCl (Zofran Inj) 4 mg Q6H PRN IV NAUSEA AND/OR VOMITING; Start 04/26/17 at 15:00 Acetaminophen/ Hydrocodone Bitart ([place] (5/325)) 1 tab Q6H PRN PO MODERATE PAIN LEVEL 4-6 Last administered on 05/02/17 02:18; Admin Dose 1 TAB; Start at 15:00 Morphine Sulfate (morphine) 2 mg Q4H PRN IV SEVERE PAIN LEVEL 7-10 Last administered on 04/30/17 21:02; Admin Dose 2 MG; Start 04/26/17 at 15:00; Status Future Hold Ascorbic Acid (Vitamin C) 500 mg DAILY PO Last administered on 05/02/17 08:26 ; Admin Dose 500 MG; Start 04/27/17 at 09:00 Docusate Sodium (Colace) 100 mg BID PO Last administered on 05/02/17 08:26; Admin Dose 100 MG; Start 04/26/17 at 21:00 Famotidine (Pepcid) 20 mg DAILY PO Last administered on 05/02/17 08:27; Admin Dose 20 MG; Start 04/27/17 at 09:00 Ferrous Sulfate (Ferrous Sulfate (Ec)) 325 mg TID PO Last administered on 08:26; Admin Dose 325 MG; Start 04/26/17 at 21:00 Gabapentin (Neurontin) 600 mg TID PO Last administered on 05/02/17 08:26; Admin Dose 600 MG; Start 04/26/17 at 21:00 Midodrine (Proamatine) 10 mg TID PO Last administered on 05/02/17 08:27; Admin Dose 10 MG; Start 04/26/17 at 21:00 Multivitamins Therapeutic (Theragran) 1 tab DAILY PO Last administered on 08:27; Admin Dose 1 TAB; Start 04/27/17 at 09:00 Hydralazine HCl 10 mg 10 mg Q6 PRN IV ELEVATED SYSTOLIC BP; Start 04/26/17 at 22:33 Cefepime HCl (Maxipime 1gm/50 ml (Pmx)) 50 ml @ 100 mls/hr Q12 IVPB Last administered on 05/02/17 08:26; Admin Dose 100 MLS/HR; Start 04/27/17 at 21:00 Sodium Hypochlorite (Dakin'S (1/4 Strength)) 1 applic DAILY IRR Last administered on 05/02/17 08:27; Admin Dose 1 APPLIC; Start 04/27/17 at 14:30 Bisacodyl 10 mg 10 mg DAILY PRN [place] CONSTIPATION Last administered on 04/29/17 22:32; Admin Dose 10 MG; Start 04/29/17 at 14:30 Sodium Chloride (NS) 1,000 ml @ 100 mls/hr Q10H IV Last administered on 07:43; Admin Dose 100 MLS/HR; Start 05/01/17 at 22:00; Stop 05/02/17 at 21: 59 Assessment/Plan Chief Complaint/Hosp Course SUBJECTIVE: No events overnight. Looks comfortable. No fevers. MICROBIOLOGY: Urine culture growing Providencia stuartii and E coli ESBL. Blood cultures preliminary negative. DIAGNOSTICS: CT of the chest on admission revealed no evidence of PE. Extensive centrilobular emphysema and bibasilar atelectasis. Ultrasound of the lower extremities revealed no DVT. ANTIMICROBIALS: Cefepime. PHYSICAL EXAMINATION: GENERAL: Middle-aged, chronically ill-appearing, -[place] woman who is alert, in no distress. HEENT: Head atraumatic, normocephalic. Sclerae anicteric. Buccal mucosa pink , with white thrush on her tongue. NECK: Supple. CHEST: Rise symmetrical. Breath sounds diminished to bases. HEART: S1, S2. ABDOMEN: Soft. Bowel tones present. EXTREMITIES: Wasted without cyanosis. ASSESSMENT: 1. Urinary tract infection. 2. Multiple wounds==> not infected per surgical team, cx + colonized. 3. Quadriplegia. 4. Status post acute hypoxemic respiratory failure. 5. Anemia. 6. Deep venous thrombosis. PLAN: The patient remains stable, continue antibiotics for 2 more days. Continue local wound care as per surgical recommendations. staff Problems: MARCIN GALVEZ NP May 02, 2017 12:38
--- NOTE | 2017-05-02 14:31 | PN ---
Date/Time of Note Date/Time of Note DATE: 05/02/17 TIME: 14:29 Assessment/Plan VTE Prophylaxis VTE Prophylaxis Intervention: other Lines/Catheters IV C[facility] Type (from [facility] Peripheral IV Urinary Cath still in place: Yes Reason Cath still needed: urinary retention Assessment/Plan Assessment/Plan 1. Urinary tract infection ESBL E. Coli/proteus mirabilis, on cefepime since , stable, will finish cefepime for 7 days 2. Multiple wounds==> not infected per dw surgical team, cx + colonized. 3. Quadriplegia. 4. Status post acute hypoxemic respiratory failure, improved 5. Anemia. 6. No deep venous thrombosis on venous US or PE on CTA on 04/26/2017 Subjective 24 Hr Interval Summary Free Text/Dictation afebrile Exam/Review of Systems Vital Signs Vitals Vital Signs Date Time Temp Pulse Resp B/P Pulse Ox O2 Delivery O2 Flow Rate FiO2 05/02/17 10:52 85 101/57 05/02/17 07:15 97.5 16 95 05/01/17 23:04 21 04/29/17 20:30 Nasal Cannula 2.0 Intake and Output 05/01/17 05/01/17 05/02/17 15:00 23:00 07:00 Intake Total 50 ml 300 ml Output Total 600 ml Balance 50 ml -300 ml Exam Constitutional: alert, oriented, well developed Psych: nl mood/affect, no complaints Head: atraumatic, normocephalic Eyes: EOMI, PERRL, nl conjunctiva, nl lids ENMT: nl external ears & nose, nl lips & teeth, nl nasal mucosa & septum Neck: non-tender, supple Respiratory: clear to auscultation, normal air movement, No congested cough, No crackles/rales, No diminished breath sounds, No intercostal retraction, No labored breathing, No other, No respirations, No tactile fremitus, No wheezing Cardiovascular: nl pulses, regular rate and rhythm, No S3, No S4, No bruits, No diastolic murmur, No edema, No gallop, No irregular rhythm, No jugular venous distention (JVD), No murmurs/extra sounds, No other, No rub, No systolic murmur Gastrointestinal: nl liver, spleen, non-tender, soft Musculoskeletal: nl extremities to inspection Extremities: normal pulses, No calf tenderness, No clubbing, No cyanosis, No edema 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, nl mental status, nl speech Results Result Diagram: 05/01/1743005/01/17430 Results 24 hrs Laboratory Tests Test 05/02/17 07:19 Lab Scanned Report REFERENCE LAB Medications Medications Current Medications Ondansetron HCl (Zofran Inj) 4 mg Q6H PRN IV NAUSEA AND/OR VOMITING; Start 04/26/17 at 15:00 Acetaminophen/ Hydrocodone Bitart ([place] (5/325)) 1 tab Q6H PRN PO MODERATE PAIN LEVEL 4-6 Last administered on 05/02/17 02:18; Admin Dose 1 TAB; Start at 15:00 Morphine Sulfate (morphine) 2 mg Q4H PRN IV SEVERE PAIN LEVEL 7-10 Last administered on 04/30/17 21:02; Admin Dose 2 MG; Start 04/26/17 at 15:00; Status Future Hold Ascorbic Acid (Vitamin C) 500 mg DAILY PO Last administered on 05/02/17 08:26 ; Admin Dose 500 MG; Start 04/27/17 at 09:00 Docusate Sodium (Colace) 100 mg BID PO Last administered on 05/02/17 08:26; Admin Dose 100 MG; Start 04/26/17 at 21:00 Famotidine (Pepcid) 20 mg DAILY PO Last administered on 05/02/17 08:27; Admin Dose 20 MG; Start 04/27/17 at 09:00 Ferrous Sulfate (Ferrous Sulfate (Ec)) 325 mg TID PO Last administered on 13:04; Admin Dose 325 MG; Start 04/26/17 at 21:00 Gabapentin (Neurontin) 600 mg TID PO Last administered on 05/02/17 13:04; Admin Dose 600 MG; Start 04/26/17 at 21:00 Midodrine (Proamatine) 10 mg TID PO Last administered on 05/02/17 13:06; Admin Dose 10 MG; Start 04/26/17 at 21:00 Multivitamins Therapeutic (Theragran) 1 tab DAILY PO Last administered on 08:27; Admin Dose 1 TAB; Start 04/27/17 at 09:00 Hydralazine HCl 10 mg 10 mg Q6 PRN IV ELEVATED SYSTOLIC BP; Start 04/26/17 at 22:33 Cefepime HCl (Maxipime 1gm/50 ml (Pmx)) 50 ml @ 100 mls/hr Q12 IVPB Last administered on 05/02/17 08:26; Admin Dose 100 MLS/HR; Start 04/27/17 at 21:00 Sodium Hypochlorite (Dakin'S (1/4 Strength)) 1 applic DAILY IRR Last administered on 05/02/17 08:27; Admin Dose 1 APPLIC; Start 04/27/17 at 14:30 Bisacodyl 10 mg 10 mg DAILY PRN [place] CONSTIPATION Last administered on 04/29/17 22:32; Admin Dose 10 MG; Start 04/29/17 at 14:30 Sodium Chloride (NS) 1,000 ml @ 100 mls/hr Q10H IV Last administered on 07:43; Admin Dose 100 MLS/HR; Start 05/01/17 at 22:00; Stop 05/02/17 at 21: 59 DESIREE GILBERT MD May 02, 2017 14:31
[2017-05-02] MEDS ORDERED: BACLOFEN 10 MG TAB PO PRN (19:00)
[2017-05-02] MEDS ORDERED: IBUPROFEN 400 MG TAB PO ONE (21:23)
[2017-05-03 02:30] VITALS: BP 80/51; PULSE 84; RESP 19
[2017-05-03] MEDS ORDERED: SOD CHLORIDE 0.9% 250 ML IV ONE (03:30)
[2017-05-03 05:09] VITALS: BP 104/57; PULSE 78
[2017-05-03 08:00] VITALS: BP 128/81; RESP 17
[2017-05-03] MEDS: ALBUTEROL/IPRATROPIUM (NEB) 3 ML AMP HHN SCH ×4 (08:12→21:00)
[2017-05-03] MEDS: CEFEPIME 1GM/50 ML (PMX) 50 ML IVPB SCH ×2 (09:16→20:37)
[2017-05-03] MEDS: SODIUM HYPOCHLORITE 0.125% 473 ML BTL IRR SCH (09:16)
[2017-05-03] MEDS: RIVAROXABAN 15 MG TABLET PO SCH ×2 (09:17→17:19)
[2017-05-03] MEDS: FAMOTIDINE 20 MG TAB PO SCH (09:17)
[2017-05-03] MEDS: DOCUSATE SODIUM 100 MG CAP PO SCH ×2 (09:17→20:37)
[2017-05-03] MEDS: MIDODRINE 5 MG TAB PO SCH ×3 (09:17→20:41)
[2017-05-03] MEDS: MULTIVITAMINS THERAPEUTIC TAB PO SCH (09:17)
[2017-05-03] MEDS: ASCORBIC ACID 500 MG TAB PO SCH (09:17)
[2017-05-03] MEDS: FERROUS SULFATE (EC) 325 MG TAB PO SCH ×3 (09:17→20:37)
[2017-05-03] MEDS: GABAPENTIN 300 MG CAP PO SCH ×3 (09:17→20:38)
--- NOTE | 2017-05-03 09:38 | PN ---
Date/Time of Note Date/Time of Note DATE: 05/03/17 TIME: 09:35 Assessment/Plan Lines/Catheters IV Catheter Type (from [facility]): Peripheral IV Jacques in Place (from [facility]): Yes Assessment/Plan Chief Complaint/Hosp Course 1. Multiple wounds: 2/2 immobility; s/p debridement bilateral ischials 05/09/17 ; cultures noted -debridement prn -local care with dakins -frequent turning and off-loading -low air loss mattress -vitamin c -short term zinc -optimize nutrition -abx per sensitivity 2. UTI: -abx per sensitivity -frequent bladder emptying/cath care 3. Acute hypoxic respiratory failure: CXR and CT noted; currently comfortable without supplemental oxygen -BD's -pulm toilet -monitor 4. Hypochromic normocytic anemia: no acute bleed -monitor -transfuse as needed 5. Hypocalcemia: nutritional +/- inflammation +/- other -nutrition optimization -as above 6. Hypotension: asymptomatic; improved -monitor Thank you. Patient seen and examined in collaboration with Dr. Mike Mota. Problems: Subjective 24 Hr Interval Summary Sleepy. Hypotensive but asymptomatic overnight. No fevers, chills, sob, congested cough, cp, palpitations, gar, dizziness, n/v/d/dysuria, min drainage from wounds. Exam/Review of Systems Vital Signs Vitals Vital Signs Date Time Temp Pulse Resp B/P Pulse Ox O2 Delivery O2 Flow Rate FiO2 05/03/17 08:00 97.9 88 17 128/81 96 05/03/17 02:30 Room Air 05/02/17 21:02 21 04/29/17 20:30 2.0 Intake and Output 05/02/17 05/02/17 05/03/17 15:00 23:00 07:00 Intake Total 1050 ml 1640 ml 1800 ml Output Total 900 ml 1000 ml Balance 1050 ml 740 ml 800 ml Exam Free Text/Dictation Constitutional: alert, oriented Psych: nl mood/affect, somnolent Head: atraumatic, normocephalic Eyes: nl lids, nl sclera ENMT: mucosa pink and moist, nl nasal mucosa & septum Neck: non-tender, supple Respiratory: diminished breath sounds Cardiovascular: nl pulses, regular rate and rhythm Gastrointestinal: non-tender, soft Genitourinary - Female: nl external genitalia Musculoskeletal: muscle weakness, other (bilat foot drop), No muscle tone Extremities: normal pulses, No edema 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: nl mental status, nl speech, other (paraplegia; hand contractures ) Skin: other (hip and ischial wounds (draining min drainage; no odor)) Results Result Diagram: 05/01/17 0431 05/01/17 0431 JOAN CARLSON NP May 03, 2017 09:38
--- NOTE | 2017-05-03 13:51 | CONS ---
Date/Time of Note Date/Time of Note DATE: 05/03/17 TIME: 13:50 Consult Date/Type/Reason Admit Date/Time Apr 26, 2017 at 13:31 Initial Consult Date 04/27/17 Type of Consultation: ID Ordering Provider: MANUELITO KUMAR MD Objective Vital Signs Date Time Temp Pulse Resp B/P Pulse Ox O2 Delivery O2 Flow Rate FiO2 05/03/17 08:00 97.9 88 17 128/81 96 05/03/17 02:30 Room Air 05/02/17 21:02 21 04/29/17 20:30 2.0 Intake and Output 05/02/17 05/02/17 05/03/17 15:00 23:00 07:00 Intake Total 1050 ml 1640 ml 1800 ml Output Total 900 ml 1000 ml Balance 1050 ml 740 ml 800 ml Results/Medications Result Diagram: 05/01/17 04305/01/17 0431 Medications Current Medications Ondansetron HCl (Zofran Inj) 4 mg Q6H PRN IV NAUSEA AND/OR VOMITING; Start 04/26/17 at 15:00 Morphine Sulfate (morphine) 2 mg Q4H PRN IV SEVERE PAIN LEVEL 7-10 Last administered on 04/30/17 21:02; Admin Dose 2 MG; Start 04/26/17 at 15:00; Status Future Hold Ascorbic Acid (Vitamin C) 500 mg DAILY PO Last administered on 05/03/17 09:17 ; Admin Dose 500 MG; Start 04/27/17 at 09:00 Docusate Sodium (Colace) 100 mg BID PO Last administered on 05/03/17 09:17; Admin Dose 100 MG; Start 04/26/17 at 21:00 Famotidine (Pepcid) 20 mg DAILY PO Last administered on 05/03/17 09:17; Admin Dose 20 MG; Start 04/27/17 at 09:00 Ferrous Sulfate (Ferrous Sulfate (Ec)) 325 mg TID PO Last administered on 12:59; Admin Dose 325 MG; Start 04/26/17 at 21:00 Gabapentin (Neurontin) 600 mg TID PO Last administered on 05/03/17 12:59; Admin Dose 600 MG; Start 04/26/17 at 21:00 Midodrine (Proamatine) 10 mg TID PO Last administered on 05/03/17 12:59; Admin Dose 10 MG; Start 04/26/17 at 21:00 Multivitamins Therapeutic (Theragran) 1 tab DAILY PO Last administered on 09:17; Admin Dose 1 TAB; Start 04/27/17 at 09:00 Hydralazine HCl 10 mg 10 mg Q6 PRN IV ELEVATED SYSTOLIC BP; Start 04/26/17 at 22:33 Cefepime HCl (Maxipime 1gm/50 ml (Pmx)) 50 ml @ 100 mls/hr Q12 IVPB Last administered on 05/03/17 09:16; Admin Dose 100 MLS/HR; Start 04/27/17 at 21:00 Sodium Hypochlorite (Dakin'S (1/4 Strength)) 1 applic DAILY IRR Last administered on 05/03/17 09:16; Admin Dose 1 APPLIC; Start 04/27/17 at 14:30 Bisacodyl (Dulcolax Supp) 10 mg DAILY PRN [place] CONSTIPATION Last administered on 04/29/17 22:32; Admin Dose 10 MG; Start 04/29/17 at 14:30 Baclofen (Lioresal) 10 mg Q8 PRN PO STIFF MUSCLE Last administered on 21:10; Admin Dose 10 MG; Start 05/02/17 at 19:00 Assessment/Plan Chief Complaint/Hosp Course SUBJECTIVE: No events overnight. Looks comfortable. No fevers. MICROBIOLOGY: Urine culture growing Providencia stuartii and E coli ESBL. Blood cultures negative. DIAGNOSTICS: CT of the chest on admission revealed no evidence of PE. Extensive centrilobular emphysema and bibasilar atelectasis. Ultrasound of the lower extremities revealed no DVT. ANTIMICROBIALS: Cefepime. PHYSICAL EXAMINATION: GENERAL: Middle-aged, chronically ill-appearing, -[place] woman who is alert, in no distress. HEENT: Head atraumatic, normocephalic. Sclerae anicteric. Buccal mucosa pink , with white thrush on her tongue. NECK: Supple. CHEST: Rise symmetrical. Breath sounds diminished to bases. HEART: S1, S2. ABDOMEN: Soft. Bowel tones present. EXTREMITIES: Wasted without cyanosis. ASSESSMENT: 1. Urinary tract infection. 2. Multiple wounds==> not infected per dw surgical team, cx + colonized, s/p debridement. 3. Quadriplegia. 4. Status post acute hypoxemic respiratory failure. 5. Anemia. 6. Deep venous thrombosis. PLAN: The patient remains stable, completing antibiotics. Continue local wound care as per surgical recommendations. staff Problems: MARCIN GALVEZ NP May 03, 2017 13:51
[2017-05-03 14:00] VITALS: BP 99/76; RESP 18
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
[2017-05-03] MEDS: morphine 2 MG INJ IV PRN (17:19)
[2017-05-03] MEDS: ONDANSETRON 4 MG INJ IV PRN (19:39)
[2017-05-03 20:47] VITALS: BP 84/51; RESP 17
[2017-05-03 21:50] VITALS: BP 117/73
[2017-05-04 03:29] VITALS: BP 81/50; RESP 16
[2017-05-04 04:50] VITALS: BP 104/66; PULSE 88
[2017-05-04] MEDS: BISACODYL 10 MG SUPP PR PRN (06:19)
[2017-05-04 07:38] VITALS: BP 120/61; RESP 19
[2017-05-04] MEDS: ASCORBIC ACID 500 MG TAB PO SCH (08:54)
[2017-05-04] MEDS: MULTIVITAMINS THERAPEUTIC TAB PO SCH (08:54)
[2017-05-04] MEDS: FAMOTIDINE 20 MG TAB PO SCH (08:54)
[2017-05-04] MEDS: CEFEPIME 1GM/50 ML (PMX) 50 ML IVPB SCH ×2 (08:54→21:12)
[2017-05-04] MEDS: RIVAROXABAN 15 MG TABLET PO SCH ×2 (08:54→17:35)
[2017-05-04] MEDS: DOCUSATE SODIUM 100 MG CAP PO SCH ×2 (08:54→21:12)
[2017-05-04] MEDS: FERROUS SULFATE (EC) 325 MG TAB PO SCH ×3 (08:54→21:12)
[2017-05-04] MEDS: GABAPENTIN 300 MG CAP PO SCH ×3 (08:55→21:13)
[2017-05-04] MEDS: MIDODRINE 5 MG TAB PO SCH ×3 (08:56→21:15)
[2017-05-04] MEDS: ALBUTEROL/IPRATROPIUM (NEB) 3 ML AMP HHN SCH ×4 (09:00→21:00)
[2017-05-04] MEDS: morphine 2 MG INJ IV PRN ×2 (09:23→14:25)
--- NOTE | 2017-05-04 10:03 | PN ---
Date/Time of Note Date/Time of Note DATE: 05/04/17 TIME: 10:00 Assessment/Plan Lines/Catheters IV Catheter Type (from [facility]): Saline Lock [address] in Place (from [facility]): Yes Assessment/Plan Chief Complaint/Hosp Course 1. Multiple wounds: 2/2 immobility; s/p debridement bilateral ischials 05/09/17 ; cultures noted -debridement prn -continue local care with dakins -frequent turning and off-loading -low air loss mattress -vitamin c -short term zinc -optimize nutrition -abx per sensitivity 2. UTI: -abx per sensitivity -frequent bladder emptying/cath care 3. Acute hypoxic respiratory failure: CXR and CT noted; currently comfortable without supplemental oxygen -BD's -pulm toilet -monitor 4. Hypochromic normocytic anemia: no acute bleed -monitor -transfuse as needed 5. Hypocalcemia: nutritional +/- inflammation +/- other -nutrition optimization -as above 6. Hypotension: resolved Thank you. Patient seen and examined in collaboration with Dr. Mike Mota. Problems: Subjective 24 Hr Interval Summary Feels well. No overnight events. Pending discharge today. No fevers, chills, sob , congested cough, cp, palpitations, gar, dizziness, n/v/d/dysuria, excessive wound drainage or new wounds. Exam/Review of Systems Vital Signs Vitals Vital Signs Date Time Temp Pulse Resp B/P Pulse Ox O2 Delivery O2 Flow Rate FiO2 05/04/17 07:38 96.8 91 19 120/61 96 05/03/17 21:35 21 05/03/17 02:30 Room Air Intake and Output 05/03/17 05/03/17 05/04/17 15:00 23:00 07:00 Intake Total 50 ml 990 ml 600 ml Output Total 800 ml 700 ml Balance 50 ml 190 ml -100 ml Exam Free Text/Dictation Constitutional: alert, oriented Psych: nl mood/affect, somnolent Head: atraumatic, normocephalic Eyes: nl lids, nl sclera ENMT: mucosa pink and moist, nl nasal mucosa & septum Neck: non-tender, supple Respiratory: diminished breath sounds Cardiovascular: nl pulses, regular rate and rhythm Gastrointestinal: non-tender, soft Genitourinary - Female: nl external genitalia Musculoskeletal: muscle weakness, other (bilat foot drop), No muscle tone Extremities: normal pulses, No edema 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: nl mental status, nl speech, other (paraplegia; hand contractures ) Skin: other (hip and ischial wounds (packed; no odor)) Results Result Diagram: 05/01/17 0431 05/01/17 0431 JOAN CARLSON NP May 04, 2017 10:03
--- NOTE | 2017-05-04 14:01 | CONS ---
Date/Time of Note Date/Time of Note DATE: 05/04/17 TIME: 14:00 Assessment/Plan Assessment/Plan Chief Complaint/Hosp Course SUBJECTIVE: No events overnight. Awake, looks comfortable. No fevers. MICROBIOLOGY: Urine culture growing Providencia stuartii and E coli ESBL. Blood cultures negative. DIAGNOSTICS: CT of the chest on admission revealed no evidence of PE. Extensive centrilobular emphysema and bibasilar atelectasis. Ultrasound of the lower extremities revealed no DVT. ANTIMICROBIALS: Cefepime. PHYSICAL EXAMINATION: GENERAL: Middle-aged, chronically ill-appearing, -[place] woman who is alert, in no distress. HEENT: Head atraumatic, normocephalic. Sclerae anicteric. Buccal mucosa pink , with white thrush on her tongue. NECK: Supple. CHEST: Rise symmetrical. Breath sounds diminished to bases. HEART: S1, S2. ABDOMEN: Soft. Bowel tones present. EXTREMITIES: Wasted without cyanosis. ASSESSMENT: 1. Urinary tract infection. 2. Multiple wounds==> not infected per surgical team, cx + colonized, s/p debridement. 3. Quadriplegia. 4. Status post acute hypoxemic respiratory failure. 5. Anemia. 6. Deep venous thrombosis. PLAN: The patient remains stable, will dc abx in am and observe, continue local wound care as per surgical recommendations. staff Problems: Consultation Date/Type/Reason Admit Date/Time Apr 26, 2017 at 13:31 Initial Consult Date 04/27/17 Type of Consultation: ID Referring Provider: MANUELITO KUMAR MD Exam/Review of Systems Vital Signs Vitals Vital Signs Date Time Temp Pulse Resp B/P Pulse Ox O2 Delivery O2 Flow Rate FiO2 05/04/17 10:49 Nasal Cannula 2.0 05/04/17 07:38 96.8 91 19 120/61 96 05/03/17 21:35 21 Intake and Output 05/03/17 05/03/17 05/04/17 15:00 23:00 07:00 Intake Total 50 ml 990 ml 600 ml Output Total 800 ml 700 ml Balance 50 ml 190 ml -100 ml Results Result Diagram: 05/01/17 04305/01/17 043 Medications Medications Current Medications Ondansetron HCl (Zofran Inj) 4 mg Q6H PRN IV NAUSEA AND/OR VOMITING Last administered on 05/03/17 19:39; Admin Dose 4 MG; Start 04/26/17 at 15:00 Morphine Sulfate (morphine) 2 mg Q4H PRN IV SEVERE PAIN LEVEL 7-10 Last administered on 04/30/17 21:02; Admin Dose 2 MG; Start 04/26/17 at 15:00; Status Future Hold Ascorbic Acid (Vitamin C) 500 mg DAILY PO Last administered on 05/04/17 08:54 ; Admin Dose 500 MG; Start 04/27/17 at 09:00 Docusate Sodium (Colace) 100 mg BID PO Last administered on 05/04/17 08:54; Admin Dose 100 MG; Start 04/26/17 at 21:00 Famotidine (Pepcid) 20 mg DAILY PO Last administered on 05/04/17 08:54; Admin Dose 20 MG; Start 04/27/17 at 09:00 Ferrous Sulfate (Ferrous Sulfate (Ec)) 325 mg TID PO Last administered on 12:52; Admin Dose 325 MG; Start 04/26/17 at 21:00 Gabapentin (Neurontin) 600 mg TID PO Last administered on 05/04/17 12:52; Admin Dose 600 MG; Start 04/26/17 at 21:00 Midodrine (Proamatine) 10 mg TID PO Last administered on 05/04/17 12:52; Admin Dose 10 MG; Start 04/26/17 at 21:00 Multivitamins Therapeutic (Theragran) 1 tab DAILY PO Last administered on 08:54; Admin Dose 1 TAB; Start 04/27/17 at 09:00 Hydralazine HCl 10 mg 10 mg Q6 PRN IV ELEVATED SYSTOLIC BP; Start 04/26/17 at 22:33 Cefepime HCl (Maxipime 1gm/50 ml (Pmx)) 50 ml @ 100 mls/hr Q12 IVPB Last administered on 05/04/17 08:54; Admin Dose 100 MLS/HR; Start 04/27/17 at 21:00 Sodium Hypochlorite (Dakin'S (1/4 Strength)) 1 applic DAILY IRR Last administered on 05/03/17 09:16; Admin Dose 1 APPLIC; Start 04/27/17 at 14:30 Bisacodyl (Dulcolax Supp) 10 mg DAILY PRN [place] CONSTIPATION Last administered on 05/04/17 06:19; Admin Dose 10 MG; Start 04/29/17 at 14:30 Morphine Sulfate (morphine) 2 mg Q3 PRN IV pain Last administered on 05/04/17 09:23; Admin Dose 2 MG; Start 05/03/17 at 17:30 MARCIN GALVEZ NP May 04, 2017 14:01
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
[2017-05-04] MEDS: SODIUM HYPOCHLORITE 0.125% 473 ML BTL IRR SCH (17:35)
[2017-05-04 21:11] VITALS: BP 89/55; RESP 16
[2017-05-05] VITALS (7 sets, daily range): BP systolic 61–128; BP diastolic 35–64; PULSE 87–88; RESP 18
[2017-05-05] MEDS: ONDANSETRON 4 MG INJ IV PRN (02:27)
[2017-05-05] MEDS: morphine 2 MG INJ IV PRN ×3 (02:27→14:40)
[2017-05-05] MEDS: RIVAROXABAN 15 MG TABLET PO SCH ×2 (08:00→17:39)
[2017-05-05] MEDS: ALBUTEROL/IPRATROPIUM (NEB) 3 ML AMP HHN SCH ×4 (08:32→21:00)
[2017-05-05] MEDS: DOCUSATE SODIUM 100 MG CAP PO SCH ×2 (09:07→21:06)
[2017-05-05] MEDS: ASCORBIC ACID 500 MG TAB PO SCH (09:07)
[2017-05-05] MEDS: FAMOTIDINE 20 MG TAB PO SCH (09:07)
[2017-05-05] MEDS: FERROUS SULFATE (EC) 325 MG TAB PO SCH ×3 (09:07→21:07)
[2017-05-05] MEDS: GABAPENTIN 300 MG CAP PO SCH ×3 (09:07→21:07)
[2017-05-05] MEDS: MIDODRINE 5 MG TAB PO SCH ×3 (09:08→21:07)
[2017-05-05] MEDS: SODIUM HYPOCHLORITE 0.125% 473 ML BTL IRR SCH (09:08)
[2017-05-05] MEDS: MULTIVITAMINS THERAPEUTIC TAB PO SCH (09:08)
[2017-05-05] MEDS ORDERED: SOD CHLORIDE 0.9% 500 ML IV ONE (09:30)
--- NOTE | 2017-05-05 10:29 | PN ---
Date/Time of Note Date/Time of Note DATE: 05/05/17 TIME: 10:15 Assessment/Plan Lines/Catheters IV Catheter Type (from [facility]): Saline Lock [address] in Place (from [facility]): Yes Assessment/Plan Chief Complaint/Hosp Course 1. Multiple wounds: 2/2 immobility; s/p debridement bilateral ischials 05/09/17 ; cultures noted -debridement prn -continue local care with dakins (to be continued outpatient) -frequent turning and off-loading -low air loss mattress -vitamin c -short term zinc -optimize nutrition -abx per sensitivity 2. UTI: -abx per sensitivity -frequent bladder emptying/cath care 3. Acute hypoxic respiratory failure: CXR and CT noted; currently comfortable without supplemental oxygen -BD's -pulm toilet -monitor 4. Hypochromic normocytic anemia: no acute bleed -monitor -transfuse as needed 5. Hypocalcemia: nutritional +/- inflammation +/- other -nutrition optimization -as above 6. Hypotension: resolved Thank you. Patient seen and examined in collaboration with Dr. Mike Mota. Problems: Subjective 24 Hr Interval Summary No acute changes. Feels well. Hypotension but asymptomatic. Min temp overnight. No fevers, chills, sob, congested cough, cp, palpitations, gar, dizziness, n/v/d/ dysuria, excessive wound drainage or odor. Exam/Review of Systems Vital Signs Vitals Vital Signs Date Time Temp Pulse Resp B/P Pulse Ox O2 Delivery O2 Flow Rate FiO2 05/05/17 09:03 87 69/42 05/05/17 08:00 98.8 18 96 05/04/17 16:37 21 05/04/17 10:49 Nasal Cannula 2.0 Intake and Output 05/04/17 05/04/17 05/05/17 14:59 22:59 06:59 Intake Total 50 ml 50 ml 640 ml Output Total 800 ml Balance 50 ml 50 ml -160 ml Exam Free Text/Dictation Constitutional: alert, oriented Psych: nl mood/affect, somnolent Head: atraumatic, normocephalic Eyes: nl lids, nl sclera ENMT: mucosa pink and moist, nl nasal mucosa & septum Neck: non-tender, supple Respiratory: diminished breath sounds Cardiovascular: nl pulses, regular rate and rhythm Gastrointestinal: non-tender, soft Genitourinary - Female: nl external genitalia Musculoskeletal: muscle weakness, other (bilat foot drop), No muscle tone Extremities: normal pulses, No edema 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: nl mental status, nl speech, other (paraplegia; hand contractures ) Skin: other (hip and ischial wounds (packed; no odor)) Results Result Diagram: 05/01/17 0431 05/01/17 0431 JOAN CARLSON NP May 05, 2017 10:25
--- NOTE | 2017-05-05 12:31 | CONS ---
Date/Time of Note Date/Time of Note DATE: 05/05/17 TIME: 12:30 Assessment/Plan Assessment/Plan Chief Complaint/Hosp Course SUBJECTIVE: No events overnight. Alert, denies pain, looks comfortable. No fevers. MICROBIOLOGY: Urine culture on admission grew Providencia stuartii and E coli ESBL. Blood cultures negative. DIAGNOSTICS: CT of the chest on admission revealed no evidence of PE. Extensive centrilobular emphysema and bibasilar atelectasis. Ultrasound of the lower extremities revealed no DVT. ANTIMICROBIALS: Cefepime. PHYSICAL EXAMINATION: GENERAL: Middle-aged, chronically ill-appearing, -[place]in[place] woman who is alert, in no distress. HEENT: Head atraumatic, normocephalic. Sclerae anicteric. Buccal mucosa pink , with white thrush on her tongue. NECK: Supple. CHEST: Rise symmetrical. Breath sounds diminished to bases. HEART: S1, S2. ABDOMEN: Soft. Bowel tones present. EXTREMITIES: Wasted without cyanosis. ASSESSMENT: 1. Urinary tract infection==> treated. 2. Multiple wounds==> not infected per surgical team, cx + colonized, s/p debridement. 3. Quadriplegia. 4. Status post acute hypoxemic respiratory failure. 5. Anemia. 6. Deep venous thrombosis. PLAN: The patient remains stable, completed abx, continue local wound care as per surgical recommendations. staff Problems: Consultation Date/Type/Reason Admit Date/Time Apr 26, 2017 at 13:31 Initial Consult Date 04/27/17 Type of Consultation: ID Referring Provider: MANUELITO KUMAR MD Exam/Review of Systems Vital Signs Vitals Vital Signs Date Time Temp Pulse Resp B/P Pulse Ox O2 Delivery O2 Flow Rate FiO2 05/05/17 09:03 87 69/42 05/05/17 08:00 98.8 18 96 05/04/17 16:37 21 05/04/17 10:49 Nasal Cannula 2.0 Intake and Output 05/04/17 05/04/17 05/05/17 15:00 23:00 07:00 Intake Total 50 ml 50 ml 640 ml Output Total 800 ml Balance 50 ml 50 ml -160 ml Results Result Diagram: 05/01/17 04305/01/17 043 Medications Medications Current Medications Ondansetron HCl (Zofran Inj) 4 mg Q6H PRN IV NAUSEA AND/OR VOMITING Last administered on 05/05/17 02:27; Admin Dose 4 MG; Start 04/26/17 at 15:00 Morphine Sulfate (morphine) 2 mg Q4H PRN IV SEVERE PAIN LEVEL 7-10 Last administered on 04/30/17 21:02; Admin Dose 2 MG; Start 04/26/17 at 15:00; Status Future Hold Ascorbic Acid (Vitamin C) 500 mg DAILY PO Last administered on 05/05/17 09:07 ; Admin Dose 500 MG; Start 04/27/17 at 09:00 Docusate Sodium (Colace) 100 mg BID PO Last administered on 05/05/17 09:07; Admin Dose 100 MG; Start 04/26/17 at 21:00 Famotidine (Pepcid) 20 mg DAILY PO Last administered on 05/05/17 09:07; Admin Dose 20 MG; Start 04/27/17 at 09:00 Ferrous Sulfate (Ferrous Sulfate (Ec)) 325 mg TID PO Last administered on 05/05 12:16; Admin Dose 325 MG; Start 04/26/17 at 21:00 Gabapentin (Neurontin) 600 mg TID PO Last administered on 05/05/17 12:16; Admin Dose 600 MG; Start 04/26/17 at 21:00 Midodrine (Proamatine) 10 mg TID PO Last administered on 05/05/17 12:16; Admin Dose 10 MG; Start 04/26/17 at 21:00 Multivitamins Therapeutic (Theragran) 1 tab DAILY PO Last administered on 05/05 09:08; Admin Dose 1 TAB; Start 04/27/17 at 09:00 Hydralazine HCl (Apresoline) 10 mg Q6 PRN IV ELEVATED SYSTOLIC BP; Start at 22:33 Sodium Hypochlorite (Dakin'S (1/4 Strength)) 1 applic DAILY IRR Last administered on 05/05/17 09:08; Admin Dose 1 APPLIC; Start 04/27/17 at 14:30 Bisacodyl (Dulcolax Supp) 10 mg DAILY PRN [place] CONSTIPATION Last administered on 05/04/17 06:19; Admin Dose 10 MG; Start 04/29/17 at 14:30 Morphine Sulfate (morphine) 2 mg Q3 PRN IV pain Last administered on t 10:51; Admin Dose 2 MG; Start 05/03/17 at 17:30 MARCIN GALVEZ NP May 05, 2017 12:31
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
[2017-05-06 02:48] VITALS: BP 98/54; RESP 18
[2017-05-06 08:00] VITALS: BP 97/53; RESP 20
[2017-05-06] MEDS: ALBUTEROL/IPRATROPIUM (NEB) 3 ML AMP HHN SCH ×4 (09:00→20:36)
[2017-05-06] MEDS: FERROUS SULFATE (EC) 325 MG TAB PO SCH ×3 (10:12→20:15)
[2017-05-06] MEDS: MIDODRINE 5 MG TAB PO SCH ×3 (10:13→20:17)
[2017-05-06] MEDS: GABAPENTIN 300 MG CAP PO SCH ×3 (10:13→20:17)
[2017-05-06] MEDS: MULTIVITAMINS THERAPEUTIC TAB PO SCH (10:13)
[2017-05-06] MEDS: FAMOTIDINE 20 MG TAB PO SCH (10:13)
[2017-05-06] MEDS: DOCUSATE SODIUM 100 MG CAP PO SCH ×2 (10:13→20:17)
[2017-05-06] MEDS: ASCORBIC ACID 500 MG TAB PO SCH (10:13)
[2017-05-06] MEDS: RIVAROXABAN 15 MG TABLET PO SCH ×2 (10:16→20:15)
--- NOTE | 2017-05-06 11:42 | PN ---
Date/Time of Note Date/Time of Note DATE: 05/06/17 TIME: 11:42 Assessment/Plan VTE Prophylaxis VTE Prophylaxis Intervention: SCD's Lines/Catheters IV Catheter Type (from Nrs): Saline Lock Urinary Cath still in place: Yes Reason Cath still needed: terminal illness/intractable pain Assessment/Plan Assessment/Plan 1. Urinary tract infection ESBL E. Coli/proteus mirabilis - Patient completed a course of antibiotics - remains afebrile with normal WBC 2. Multiple wounds - Surgery on board and consultation appreciated. No signs of infection and continue local wound care 3. Quadriplegia - Stable 4. Status post acute hypoxemic respiratory failure, improved 5. Anemia. - stable 6. Disposition - Awaiting placement Subjective 24 Hr Interval Summary Free Text/Dictation Patient doing well and denies any acute issues. No acute overnight events. Awaiting placement. Exam/Review of Systems Vital Signs Vitals Vital Signs Date Time Temp Pulse Resp B/P Pulse Ox O2 Delivery O2 Flow Rate FiO2 05/06/17 08:00 98.8 92 20 97/53 96 05/04/17 16:37 21 05/04/17 10:49 Nasal Cannula 2.0 Intake and Output 05/05/17 05/05/17 05/06/17 15:00 23:00 07:00 Intake Total 500 ml 480 ml 720 ml Output Total 350 ml 350 ml Balance 500 ml 130 ml 370 ml Exam Constitutional: alert, oriented, well developed Head: atraumatic, normocephalic Eyes: EOMI, PERRL, nl conjunctiva, nl lids, nl sclera ENMT: nl external ears & nose, nl lips & teeth, nl nasal mucosa & septum Respiratory: clear to auscultation, normal air movement, No congested cough, No crackles/rales, No diminished breath sounds Cardiovascular: nl pulses, regular rate and rhythm, No S3, No S4, No bruits, No diastolic murmur, No edema Gastrointestinal: nl liver, spleen, non-tender, soft 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: 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, nl mental status, nl speech Medications Medications Current Medications Ondansetron HCl (Zofran Inj) 4 mg Q6H PRN IV NAUSEA AND/OR VOMITING Last administered on 05/05/17t 02:27; Admin Dose 4 MG; Start 04/26/17 at 15:00 Morphine Sulfate (morphine) 2 mg Q4H PRN IV SEVERE PAIN LEVEL 7-10 Last administered on 04/30/17 21:02; Admin Dose 2 MG; Start 04/26/17 at 15:00; Status Future Hold Ascorbic Acid (Vitamin C) 500 mg DAILY PO Last administered on 05/06/17 10:13 ; Admin Dose 500 MG; Start 04/27/17 at 09:00 Docusate Sodium (Colace) 100 mg BID PO Last administered on 05/06/17 10:13; Admin Dose 100 MG; Start 04/26/17 at 21:00 Famotidine (Pepcid) 20 mg DAILY PO Last administered on 05/06/17 10:13; Admin Dose 20 MG; Start 04/27/17 at 09:00 Ferrous Sulfate (Ferrous Sulfate (Ec)) 325 mg TID PO Last administered on 05/06 10:12; Admin Dose 325 MG; Start 04/26/17 at 21:00 Gabapentin (Neurontin) 600 mg TID PO Last administered on 05/06/17 10:13; Admin Dose 600 MG; Start 04/26/17 at 21:00 Midodrine (Proamatine) 10 mg TID PO Last administered on 05/06/17 10:13; Admin Dose 10 MG; Start 04/26/17 at 21:00 Multivitamins Therapeutic (Theragran) 1 tab DAILY PO Last administered on 05/06 10:13; Admin Dose 1 TAB; Start 04/27/17 at 09:00 Hydralazine HCl (Apresoline) 10 mg Q6 PRN IV ELEVATED SYSTOLIC BP; Start at 22:33 Sodium Hypochlorite (Dakin'S (1/4 Strength)) 1 applic DAILY IRR Last administered on 05/05/17 09:08; Admin Dose 1 APPLIC; Start 04/27/17 at 14:30 Bisacodyl (Dulcolax Supp) 10 mg DAILY PRN [place] CONSTIPATION Last administered on 05/04/17 06:19; Admin Dose 10 MG; Start 04/29/17 at 14:30 Morphine Sulfate (morphine) 2 mg Q3 PRN IV pain Last administered on 14:40; Admin Dose 2 MG; Start 05/03/17 at 17:30 VINNY MCQUEEN MD May 06, 2017 11:42
[2017-05-06] MEDS: morphine 2 MG INJ IV PRN ×3 (13:37→22:52)
[2017-05-06 14:00] VITALS: BP 122/71; RESP 20
--- NOTE | 2017-05-06 14:48 | PN ---
Date/Time of Note Date/Time of Note DATE: 05/06/17 TIME: 14:47 Assessment/Plan Lines/Catheters IV Catheter Type (from [facility]): Saline Lock [facility] in Place (from [facility]): Yes Assessment/Plan Chief Complaint/Hosp Course 1. Multiple wounds: 2/2 immobility; s/p debridement bilateral ischials 05/09/17 ; cultures noted -debridement prn -continue local care with dakins (to be continued outpatient) -frequent turning and off-loading -low air loss mattress -vitamin c -short term zinc -optimize nutrition -abx per sensitivity 2. UTI: -abx per sensitivity -frequent bladder emptying/cath care 3. Acute hypoxic respiratory failure: CXR and CT noted; currently comfortable without supplemental oxygen -BD's -pulm toilet -monitor 4. Hypochromic normocytic anemia: no acute bleed -monitor -transfuse as needed 5. Hypocalcemia: nutritional +/- inflammation +/- other -nutrition optimization -as above 6. Hypotension: resolved Thank you, Problems: Subjective 24 Hr Interval Summary No acute changes. Feels well. Hypotension but asymptomatic. Min temp overnight. No fevers, chills, sob, congested cough, cp, palpitations, gar, dizziness, n/v/d/ dysuria, excessive wound drainage or odor. Exam/Review of Systems Vital Signs Vitals Vital Signs Date Time Temp Pulse Resp B/P Pulse Ox O2 Delivery O2 Flow Rate FiO2 05/06/17 08:00 98.8 92 20 97/53 96 05/04/17 16:37 21 05/04/17 10:49 Nasal Cannula 2.0 Intake and Output 05/05/17 05/05/17 05/06/17 15:00 23:00 07:00 Intake Total 500 ml 480 ml 720 ml Output Total 350 ml 350 ml Balance 500 ml 130 ml 370 ml Exam Free Text/Dictation Constitutional: alert, oriented Psych: nl mood/affect, somnolent Head: atraumatic, normocephalic Eyes: nl lids, nl sclera ENMT: mucosa pink and moist, nl nasal mucosa & septum Neck: non-tender, supple Respiratory: diminished breath sounds Cardiovascular: nl pulses, regular rate and rhythm Gastrointestinal: non-tender, soft Genitourinary - Female: nl external genitalia Musculoskeletal: muscle weakness, other (bilat foot drop), No muscle tone Extremities: normal pulses, No edema 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: nl mental status, nl speech, other (paraplegia; hand contractures ) Skin: other (hip and ischial wounds (packed; no odor)) BRIDGETTE DIAS MD May 06, 2017 14:48
--- NOTE | 2017-05-06 17:15 | CONS ---
Date/Time of Note Date/Time of Note DATE: 05/06/17 TIME: 17:15 Consult Date/Type/Reason Admit Date/Time Apr 26, 2017 at 13:31 Initial Consult Date 04/27/17 Type of Consultation: ID Ordering Provider: MANUELITO KUMAR MD Objective Vital Signs Date Time Temp Pulse Resp B/P Pulse Ox O2 Delivery O2 Flow Rate FiO2 05/06/17 14:00 98.8 76 20 122/71 98 05/04/17 16:37 21 05/04/17 10:49 Nasal Cannula 2.0 Intake and Output 05/05/17 05/05/17 05/06/17 14:59 22:59 06:59 Intake Total 500 ml 480 ml 720 ml Output Total 350 ml 350 ml Balance 500 ml 130 ml 370 ml Results/Medications Medications Current Medications Ondansetron HCl (Zofran Inj) 4 mg Q6H PRN IV NAUSEA AND/OR VOMITING Last administered on 05/05/17 02:27; Admin Dose 4 MG; Start 04/26/17 at 15:00 Morphine Sulfate (morphine) 2 mg Q4H PRN IV SEVERE PAIN LEVEL 7-10 Last administered on 04/30/17 21:02; Admin Dose 2 MG; Start 04/26/17 at 15:00; Status Future Hold Ascorbic Acid (Vitamin C) 500 mg DAILY PO Last administered on 05/06/17 10:13 ; Admin Dose 500 MG; Start 04/27/17 at 09:00 Docusate Sodium (Colace) 100 mg BID PO Last administered on 05/06/17 10:13; Admin Dose 100 MG; Start 04/26/17 at 21:00 Famotidine (Pepcid) 20 mg DAILY PO Last administered on 05/06/17 10:13; Admin Dose 20 MG; Start 04/27/17 at 09:00 Ferrous Sulfate (Ferrous Sulfate (Ec)) 325 mg TID PO Last administered on 05/06 13:49; Admin Dose 325 MG; Start 04/26/17 at 21:00 Gabapentin (Neurontin) 600 mg TID PO Last administered on 05/06/17 13:48; Admin Dose 600 MG; Start 04/26/17 at 21:00 Midodrine (Proamatine) 10 mg TID PO Last administered on 05/06/17 13:49; Admin Dose 10 MG; Start 04/26/17 at 21:00 Multivitamins Therapeutic (Theragran) 1 tab DAILY PO Last administered on 05/06 10:13; Admin Dose 1 TAB; Start 04/27/17 at 09:00 Hydralazine HCl (Apresoline) 10 mg Q6 PRN IV ELEVATED SYSTOLIC BP; Start at 22:33 Sodium Hypochlorite (Dakin'S (1/4 Strength)) 1 applic DAILY IRR Last administered on 05/05/17 09:08; Admin Dose 1 APPLIC; Start 04/27/17 at 14:30 Bisacodyl (Dulcolax Supp) 10 mg DAILY PRN [place] CONSTIPATION Last administered on 05/04/17 06:19; Admin Dose 10 MG; Start 04/29/17 at 14:30 Morphine Sulfate (morphine) 2 mg Q3 PRN IV pain Last administered on 13:37; Admin Dose 2 MG; Start 05/03/17 at 17:30 Assessment/Plan Chief Complaint/Hosp Course SUBJECTIVE: No events overnight. Looks comfortable. No fevers. MICROBIOLOGY: Urine culture on admission grew Providencia stuartii and E coli ESBL. Blood cultures negative. DIAGNOSTICS: CT of the chest on admission revealed no evidence of PE. Extensive centrilobular emphysema and bibasilar atelectasis. Ultrasound of the lower extremities revealed no DVT. ANTIMICROBIALS: Cefepime. PHYSICAL EXAMINATION: GENERAL: Middle-aged, chronically ill-appearing, -Thai woman who is alert, in no distress. HEENT: Head atraumatic, normocephalic. Sclerae anicteric. Buccal mucosa pink , with white thrush on her tongue. NECK: Supple. CHEST: Rise symmetrical. Breath sounds diminished to bases. HEART: S1, S2. ABDOMEN: Soft. Bowel tones present. EXTREMITIES: Wasted without cyanosis. ASSESSMENT: 1. Urinary tract infection==> treated. 2. Multiple wounds==> not infected per dw surgical team, cx + colonized, s/p debridement. 3. Quadriplegia. 4. Status post acute hypoxemic respiratory failure. 5. Anemia. 6. Deep venous thrombosis. PLAN: The patient remains stable, completed abx, continue local wound care as per surgical recommendations. staff Problems: MARCIN GALVEZ NP 11, 2017 17:15
[2017-05-06] MEDS: SODIUM HYPOCHLORITE 0.125% 473 ML BTL IRR SCH (19:26)
[2017-05-06 19:30] VITALS: BP 80/49; RESP 20
[2017-05-06 22:13] VITALS: BP 96/55; PULSE 98
[2017-05-07 01:53] VITALS: BP 95/57; RESP 18
[2017-05-07 02:15] VITALS: BP 94/59; PULSE 99
[2017-05-07] MEDS: morphine 2 MG INJ IV PRN ×5 (07:01→22:17)
[2017-05-07] MEDS: RIVAROXABAN 15 MG TABLET PO SCH ×2 (08:17→18:50)
[2017-05-07 08:37] VITALS: BP 114/60; RESP 18
[2017-05-07] MEDS: ALBUTEROL/IPRATROPIUM (NEB) 3 ML AMP HHN SCH ×4 (09:00→21:00)
[2017-05-07] MEDS: GABAPENTIN 300 MG CAP PO SCH ×3 (09:42→22:21)
[2017-05-07] MEDS: MULTIVITAMINS THERAPEUTIC TAB PO SCH (09:42)
[2017-05-07] MEDS: FAMOTIDINE 20 MG TAB PO SCH (09:42)
[2017-05-07] MEDS: FERROUS SULFATE (EC) 325 MG TAB PO SCH ×3 (09:43→22:21)
[2017-05-07] MEDS: MIDODRINE 5 MG TAB PO SCH ×3 (09:43→22:21)
[2017-05-07] MEDS: DOCUSATE SODIUM 100 MG CAP PO SCH ×2 (09:43→22:16)
[2017-05-07] MEDS: ASCORBIC ACID 500 MG TAB PO SCH (09:43)
--- NOTE | 2017-05-07 09:45 | PN ---
Date/Time of Note Date/Time of Note DATE: 05/07/17 TIME: 09:45 Assessment/Plan VTE Prophylaxis VTE Prophylaxis Intervention: SCD's Lines/Catheters IV Catheter Type (from Nrsg): Saline Lock Urinary Cath still in place: Yes Reason Cath still needed: terminal illness/intractable pain Assessment/Plan Assessment/Plan 1. Urinary tract infection ESBL E. Coli/proteus mirabilis - Patient completed a course of antibiotics - remains afebrile with normal WBC 2. Multiple wounds - Surgery on board and consultation appreciated. No signs of infection and continue local wound care 3. Quadriplegia - Stable 4. Status post acute hypoxemic respiratory failure, improved 5. Anemia. - stable 6. Disposition - Awaiting placement Subjective 24 Hr Interval Summary Free Text/Dictation patient resting comfortably with no new complaints, No acute overnight events. Exam/Review of Systems Vital Signs Vitals Vital Signs Date Time Temp Pulse Resp B/P Pulse Ox O2 Delivery O2 Flow Rate FiO2 05/07/17 08:37 99.2 95 18 114/60 92 05/04/17 16:37 21 05/04/17 10:49 Nasal Cannula 2.0 Intake and Output 05/06/17 05/06/17 05/07/17 15:00 23:00 07:00 Intake Total 940 ml 300 ml Output Total 400 ml 400 ml Balance 540 ml -100 ml Exam Constitutional: alert, oriented, well developed Head: atraumatic, normocephalic Eyes: EOMI, PERRL, nl conjunctiva, nl lids, nl sclera ENMT: nl external ears & nose, nl lips & teeth, nl nasal mucosa & septum Respiratory: clear to auscultation, normal air movement, No congested cough, No crackles/rales, No diminished breath sounds Cardiovascular: nl pulses, regular rate and rhythm, No S3, No S4, No bruits, No diastolic murmur, No edema Gastrointestinal: nl liver, spleen, non-tender, soft 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: UX INFORMATION ARCHITECT II-XII intact, nl mental status, nl speech Medications Medications Current Medications Ondansetron HCl (Zofran Inj) 4 mg Q6H PRN IV NAUSEA AND/OR VOMITING Last administered on 05/05/17t 02:27; Admin Dose 4 MG; Start 04/26/17 at 15:00 Morphine Sulfate (morphine) 2 mg Q4H PRN IV SEVERE PAIN LEVEL 7-10 Last administered on 04/30/17 21:02; Admin Dose 2 MG; Start 04/26/17 at 15:00; Status Future Hold Ascorbic Acid (Vitamin C) 500 mg DAILY PO Last administered on 05/06/17 10:13 ; Admin Dose 500 MG; Start 04/27/17 at 09:00 Docusate Sodium (Colace) 100 mg BID PO Last administered on 05/06/17 20:17; Admin Dose 100 MG; Start 04/26/17 at 21:00 Famotidine (Pepcid) 20 mg DAILY PO Last administered on 05/06/17 10:13; Admin Dose 20 MG; Start 04/27/17 at 09:00 Ferrous Sulfate (Ferrous Sulfate (Ec)) 325 mg TID PO Last administered on 05/06 20:15; Admin Dose 325 MG; Start 04/26/17 at 21:00 Gabapentin (Neurontin) 600 mg TID PO Last administered on 05/06/17 20:17; Admin Dose 600 MG; Start 04/26/17 at 21:00 Midodrine (Proamatine) 10 mg TID PO Last administered on 05/06/17 20:17; Admin Dose 10 MG; Start 04/26/17 at 21:00 Multivitamins Therapeutic (Theragran) 1 tab DAILY PO Last administered on 05/06 10:13; Admin Dose 1 TAB; Start 04/27/17 at 09:00 Hydralazine HCl (Apresoline) 10 mg Q6 PRN IV ELEVATED SYSTOLIC BP; Start at 22:33 Sodium Hypochlorite (Dakin'S (1/4 Strength)) 1 applic DAILY IRR Last administered on 05/06/17 19:26; Admin Dose 1 APPLIC; Start 04/27/17 at 14:30 Bisacodyl (Dulcolax Supp) 10 mg DAILY PRN [place] CONSTIPATION Last administered on 05/04/17 06:19; Admin Dose 10 MG; Start 04/29/17 at 14:30 Morphine Sulfate (morphine) 2 mg Q3 PRN IV pain Last administered on 07:01; Admin Dose 2 MG; Start 05/03/17 at 17:30 VINNY MCQUEEN MD May 07, 2017 09:45
[2017-05-07] MEDS: SODIUM HYPOCHLORITE 0.125% 473 ML BTL IRR SCH (09:51)
[2017-05-07 13:37] VITALS: BP 108/55; RESP 18
--- NOTE | 2017-05-07 15:04 | CONS ---
Date/Time of Note Date/Time of Note DATE: 05/07/17 TIME: 15:04 Consult Date/Type/Reason Admit Date/Time Apr 26, 2017 at 13:31 Initial Consult Date 04/27/17 Type of Consultation: ID Ordering Provider: MANUELITO KUMAR MD Objective Vital Signs Date Time Temp Pulse Resp B/P Pulse Ox O2 Delivery O2 Flow Rate FiO2 05/07/17 13:37 99.4 90 18 108/55 99 05/04/17 16:37 21 05/04/17 10:49 Nasal Cannula 2.0 Intake and Output 05/06/17 05/06/17 05/07/17 15:00 23:00 07:00 Intake Total 940 ml 300 ml Output Total 400 ml 400 ml Balance 540 ml -100 ml Results/Medications Medications Current Medications Ondansetron HCl (Zofran Inj) 4 mg Q6H PRN IV NAUSEA AND/OR VOMITING Last administered on 05/05/17 02:27; Admin Dose 4 MG; Start 04/26/17 at 15:00 Morphine Sulfate (morphine) 2 mg Q4H PRN IV SEVERE PAIN LEVEL 7-10 Last administered on 04/30/17 21:02; Admin Dose 2 MG; Start 04/26/17 at 15:00; Status Future Hold Ascorbic Acid (Vitamin C) 500 mg DAILY PO Last administered on 05/07/17 09:43 ; Admin Dose 500 MG; Start 04/27/17 at 09:00 Docusate Sodium (Colace) 100 mg BID PO Last administered on 05/07/17 09:43; Admin Dose 100 MG; Start 04/26/17 at 21:00 Famotidine (Pepcid) 20 mg DAILY PO Last administered on 05/07/17 09:42; Admin Dose 20 MG; Start 04/27/17 at 09:00 Ferrous Sulfate (Ferrous Sulfate (Ec)) 325 mg TID PO Last administered on 05/07 12:52; Admin Dose 325 MG; Start 04/26/17 at 21:00 Gabapentin (Neurontin) 600 mg TID PO Last administered on 05/07/17 12:52; Admin Dose 600 MG; Start 04/26/17 at 21:00 Midodrine (Proamatine) 10 mg TID PO Last administered on 05/07/17 12:52; Admin Dose 10 MG; Start 04/26/17 at 21:00 Multivitamins Therapeutic (Theragran) 1 tab DAILY PO Last administered on 05/07 09:42; Admin Dose 1 TAB; Start 04/27/17 at 09:00 Hydralazine HCl (Apresoline) 10 mg Q6 PRN IV ELEVATED SYSTOLIC BP; Start at 22:33 Sodium Hypochlorite (Dakin'S (1/4 Strength)) 1 applic DAILY IRR Last administered on 05/07/17 09:51; Admin Dose 1 APPLIC; Start 04/27/17 at 14:30 Bisacodyl (Dulcolax Supp) 10 mg DAILY PRN [place] CONSTIPATION Last administered on 05/04/17 06:19; Admin Dose 10 MG; Start 04/29/17 at 14:30 Morphine Sulfate (morphine) 2 mg Q3 PRN IV pain Last administered on 14:46; Admin Dose 2 MG; Start 05/03/17 at 17:30 Assessment/Plan Chief Complaint/Hosp Course SUBJECTIVE: No events overnight. Looks comfortable. No fevers. MICROBIOLOGY: Urine culture on admission grew Providencia stuartii and E coli ESBL. Blood cultures negative. DIAGNOSTICS: CT of the chest on admission revealed no evidence of PE. Extensive centrilobular emphysema and bibasilar atelectasis. Ultrasound of the lower extremities revealed no DVT. PHYSICAL EXAMINATION: GENERAL: Middle-aged, chronically ill-appearing, -[place] woman who is alert, in no distress. HEENT: Head atraumatic, normocephalic. Sclerae anicteric. Buccal mucosa pink , with white thrush on her tongue. NECK: Supple. CHEST: Rise symmetrical. Breath sounds diminished to bases. HEART: S1, S2. ABDOMEN: Soft. Bowel tones present. EXTREMITIES: Wasted without cyanosis. ASSESSMENT: 1. Urinary tract infection==> treated. 2. Multiple wounds==> not infected per surgical team, cx + colonized, s/p debridement. 3. Quadriplegia. 4. Status post acute hypoxemic respiratory failure. 5. Anemia. 6. Deep venous thrombosis. PLAN: The patient remains stable, completed abx, continue local wound care as per surgical recommendations. staff Problems: MARCIN GALVEZ NP May 07, 2017 15:04
--- NOTE | 2017-05-07 15:46 | PN ---
Date/Time of Note Date/Time of Note DATE: 05/07/17 TIME: 15:41 Assessment/Plan Lines/Catheters IV Catheter Type (from [facility]): Saline Lock [facility] in Place (from [facility]): Yes Assessment/Plan Chief Complaint/Hosp Course 1. Multiple wounds: 2/2 immobility; s/p debridement bilateral ischials 05/09/17 ; cultures noted -debridement prn -continue local care with dakins (to be continued outpatient) -frequent turning and off-loading -low air loss mattress -vitamin c -short term zinc -optimize nutrition -abx per sensitivity 2. UTI: -abx per sensitivity -frequent bladder emptying/cath care 3. Acute hypoxic respiratory failure: CXR and CT noted; currently comfortable without supplemental oxygen -BD's -pulm toilet -monitor 4. Hypochromic normocytic anemia: no acute bleed -monitor -transfuse as needed 5. Hypocalcemia: nutritional +/- inflammation +/- other -nutrition optimization -as above 6. Hypotension: resolved Thank you. Patient seen and examined in collaboration with Dr. Mike Mota. Problems: Subjective 24 Hr Interval Summary Pending discharge. Feels well. No acute events. No fevers, chills, sob, congested cough, cp, palpitations, gar, dizziness, n/v/d/dysuria. Min temp overnight. Exam/Review of Systems Vital Signs Vitals Vital Signs Date Time Temp Pulse Resp B/P Pulse Ox O2 Delivery O2 Flow Rate FiO2 05/07/17 13:37 99.4 90 18 108/55 99 05/04/17 16:37 21 05/04/17 10:49 Nasal Cannula 2.0 Intake and Output 05/06/17 05/06/17 05/07/17 15:00 23:00 07:00 Intake Total 940 ml 300 ml Output Total 400 ml 400 ml Balance 540 ml -100 ml Exam Free Text/Dictation Constitutional: alert, oriented Psych: nl mood/affect, somnolent Head: atraumatic, normocephalic Eyes: nl lids, nl sclera ENMT: mucosa pink and moist, nl nasal mucosa & septum Neck: non-tender, supple Respiratory: diminished breath sounds Cardiovascular: nl pulses, regular rate and rhythm Gastrointestinal: non-tender, soft Genitourinary - Female: nl external genitalia Musculoskeletal: muscle weakness, other (bilat foot drop), No muscle tone Extremities: normal pulses, No edema 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: nl mental status, nl speech, other (paraplegia; hand contractures ) Skin: other (hip and ischial wounds (packed; no odor, min drainage)) JOAN CARLSON NP May 07, 2017 15:46
[2017-05-07 20:00] VITALS: BP 86/52; RESP 18
[2017-05-07] MEDS: CEFTRIAXONE 1 GM/50 ML (PMX) 50 ML IVPB SCH (22:58)
[2017-05-07] MEDS: ACETAMINOPHEN 500 MG TAB PO PRN (22:58)
[2017-05-08] MEDS: HYDROCODONE/APAP (5/325) TAB PO PRN ×3 (01:25→23:27)
[2017-05-08 02:00] VITALS: BP 74/44; RESP 19
[2017-05-08] MEDS ORDERED: SOD CHLORIDE 0.9% 1,000 ML IV ONE (02:30)
[2017-05-08] MEDS: SOD CHLORIDE 0.9% 1,000 ML IV SCH ×4 (06:05→22:30)
[2017-05-08 07:45] VITALS: BP 96/64; RESP 18
[2017-05-08] MEDS: ALBUTEROL/IPRATROPIUM (NEB) 3 ML AMP HHN SCH ×4 (08:21→21:00)
[2017-05-08] MEDS: SODIUM HYPOCHLORITE 0.125% 473 ML BTL IRR SCH (09:00)
[2017-05-08] MEDS: MIDODRINE 5 MG TAB PO SCH ×3 (09:36→21:09)
[2017-05-08] MEDS: FERROUS SULFATE (EC) 325 MG TAB PO SCH ×3 (09:36→21:09)
[2017-05-08] MEDS: GABAPENTIN 300 MG CAP PO SCH ×3 (09:36→21:08)
[2017-05-08] MEDS: ASCORBIC ACID 500 MG TAB PO SCH (09:36)
[2017-05-08] MEDS: RIVAROXABAN 15 MG TABLET PO SCH ×2 (09:36→17:37)
[2017-05-08] MEDS: MULTIVITAMINS THERAPEUTIC TAB PO SCH (09:36)
[2017-05-08] MEDS: FAMOTIDINE 20 MG TAB PO SCH (09:36)
[2017-05-08] MEDS: DOCUSATE SODIUM 100 MG CAP PO SCH ×2 (09:36→21:13)
[2017-05-08] MEDS: CEFTRIAXONE 1 GM/50 ML (PMX) 50 ML IVPB SCH ×2 (09:37→21:08)
--- NOTE | 2017-05-08 11:19 | PN ---
Date/Time of Note Date/Time of Note DATE: 05/08/17 TIME: 11:18 Assessment/Plan Lines/Catheters IV Catheter Type (from [facility]): Mid Line [facility] in Place (from [facility]): Yes Assessment/Plan Chief Complaint/Hosp Course 1. Multiple wounds: 2/2 immobility; s/p debridement bilateral ischials 05/09/17 ; cultures noted -debridement prn -continue local care with dakins (to be continued outpatient) -frequent turning and off-loading -low air loss mattress -vitamin c -short term zinc -optimize nutrition -abx per sensitivity 2. UTI: -abx per sensitivity -frequent bladder emptying/cath care 3. Acute hypoxic respiratory failure: CXR and CT noted; currently comfortable without supplemental oxygen -BD's -pulm toilet -monitor 4. Hypochromic normocytic anemia: no acute bleed -monitor -transfuse as needed 5. Hypocalcemia: nutritional +/- inflammation +/- other -nutrition optimization -as above 6. Hypotension: resolved Thank you, Problems: Subjective 24 Hr Interval Summary Fevers. Feels well. No acute events. No chills, sob, congested cough, cp, palpitations, gar, dizziness, n/v/d/dysuria. Exam/Review of Systems Vital Signs Vitals Vital Signs Date Time Temp Pulse Resp B/P Pulse Ox O2 Delivery O2 Flow Rate FiO2 05/08/17 08:21 21 05/08/17 07:45 97.8 89 18 96/64 05/04/17 16:37 21 05/04/17 10:49 Nasal Cannula 2.0 Intake and Output 05/07/17 05/07/17 05/08/17 15:00 23:00 07:00 Intake Total 850 ml 1930 ml Output Total 350 ml 200 ml Balance 500 ml 1730 ml Exam Free Text/Dictation Constitutional: alert, oriented Psych: nl mood/affect, somnolent Head: atraumatic, normocephalic Eyes: nl lids, nl sclera ENMT: mucosa pink and moist, nl nasal mucosa & septum Neck: non-tender, supple Respiratory: diminished breath sounds Cardiovascular: nl pulses, regular rate and rhythm Gastrointestinal: non-tender, soft Genitourinary - Female: nl external genitalia Musculoskeletal: muscle weakness, other (bilat foot drop), No muscle tone Extremities: normal pulses, No edema 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: nl mental status, nl speech, other (paraplegia; hand contractures ) Skin: other (hip and ischial wounds (packed; no odor, min drainage)) BRIDGETTE DIAS MD May 08, 2017 11:19
--- NOTE | 2017-05-08 12:43 | CONS ---
Date/Time of Note Date/Time of Note DATE: 05/08/17 TIME: 12:43 Consult Date/Type/Reason Admit Date/Time Apr 26, 2017 at 13:31 Initial Consult Date 04/27/17 Type of Consultation: ID Ordering Provider: MANUELITO KUMAR MD Objective Vital Signs Date Time Temp Pulse Resp B/P Pulse Ox O2 Delivery O2 Flow Rate FiO2 05/08/17 08:21 21 05/08/17 07:45 97.8 89 18 96/64 05/04/17 16:37 21 05/04/17 10:49 Nasal Cannula 2.0 Intake and Output 05/07/17 05/07/17 05/08/17 14:59 22:59 06:59 Intake Total 850 ml 1930 ml Output Total 350 ml 200 ml Balance 500 ml 1730 ml Results/Medications Medications Current Medications Ondansetron HCl (Zofran Inj) 4 mg Q6H PRN IV NAUSEA AND/OR VOMITING Last administered on 05/05/17 02:27; Admin Dose 4 MG; Start 04/26/17 at 15:00 Morphine Sulfate (morphine) 2 mg Q4H PRN IV SEVERE PAIN LEVEL 7-10 Last administered on 04/30/17 21:02; Admin Dose 2 MG; Start 04/26/17 at 15:00; Status Future Hold Ascorbic Acid (Vitamin C) 500 mg DAILY PO Last administered on 05/08/17 09:36 ; Admin Dose 500 MG; Start 04/27/17 at 09:00 Docusate Sodium (Colace) 100 mg BID PO Last administered on 05/08/17 09:36; Admin Dose 100 MG; Start 04/26/17 at 21:00 Famotidine (Pepcid) 20 mg DAILY PO Last administered on 05/08/17 09:36; Admin Dose 20 MG; Start 04/27/17 at 09:00 Ferrous Sulfate (Ferrous Sulfate (Ec)) 325 mg TID PO Last administered on 05/08 09:36; Admin Dose 325 MG; Start 04/26/17 at 21:00 Gabapentin (Neurontin) 600 mg TID PO Last administered on 05/08/17 09:36; Admin Dose 600 MG; Start 04/26/17 at 21:00 Midodrine (Proamatine) 10 mg TID PO Last administered on 05/08/17 09:36; Admin Dose 10 MG; Start 04/26/17 at 21:00 Multivitamins Therapeutic (Theragran) 1 tab DAILY PO Last administered on 05/08 09:36; Admin Dose 1 TAB; Start 04/27/17 at 09:00 Hydralazine HCl (Apresoline) 10 mg Q6 PRN IV ELEVATED SYSTOLIC BP; Start at 22:33 Sodium Hypochlorite (Dakin'S (1/4 Strength)) 1 applic DAILY IRR Last administered on 05/07/17 09:51; Admin Dose 1 APPLIC; Start 04/27/17 at 14:30 Bisacodyl (Dulcolax Supp) 10 mg DAILY PRN [place] CONSTIPATION Last administered on 05/04/17 06:19; Admin Dose 10 MG; Start 04/29/17 at 14:30 Acetaminophen/ Hydrocodone Bitart 1 tab 1 tab Q4H PRN PO severe pain Last administered on 05/08/17 01:25; Admin Dose 1 TAB; Start 05/07/17 at 23:00 Ceftriaxone Sodium (Rocephin) 50 ml @ 100 mls/hr Q12 IVPB Last administered on 05/08/17 09:37; Admin Dose 100 MLS/HR; Start 05/07/17 at 23:00 Acetaminophen 500 mg 500 mg Q6H PRN PO PAIN AND OR ELEVATED TEMP Last administered on 05/07/17 22:58; Admin Dose 500 MG; Start 05/07/17 at 23:00 Sodium Chloride (NS) 1,000 ml @ 100 mls/hr Q10H IV Last administered on 06:05; Admin Dose 100 MLS/HR; Start 05/08/17 at 02:30 Assessment/Plan Chief Complaint/Hosp Course SUBJECTIVE: No events overnight. Looks comfortable. No fevers. MICROBIOLOGY: Urine culture on admission grew Providencia stuartii and E coli ESBL. Blood cultures negative. DIAGNOSTICS: CT of the chest on admission revealed no evidence of PE. Extensive centrilobular emphysema and bibasilar atelectasis. Ultrasound of the lower extremities revealed no DVT. PHYSICAL EXAMINATION: GENERAL: Middle-aged, chronically ill-appearing, -[place] woman who is alert, in no distress. HEENT: Head atraumatic, normocephalic. Sclerae anicteric. Buccal mucosa pink , with white thrush on her tongue. NECK: Supple. CHEST: Rise symmetrical. Breath sounds diminished to bases. HEART: S1, S2. ABDOMEN: Soft. Bowel tones present. EXTREMITIES: Wasted without cyanosis. ASSESSMENT: 1. Urinary tract infection==> treated. 2. Multiple wounds==> not infected per surgical team, cx + colonized, s/p debridement. 3. Quadriplegia. 4. Status post acute hypoxemic respiratory failure. 5. Anemia. 6. Deep venous thrombosis. PLAN: The patient remains stable, off abx, continue local wound care as per surgical recommendations. staff Problems: MARCIN GALVEZ NP May 08, 2017 12:43
[2017-05-08 14:00] VITALS: BP 90/55; RESP 16
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
[2017-05-08 20:53] VITALS: BP 88/53; RESP 20
[2017-05-08 22:00] VITALS: BP 129/77
[2017-05-09 03:20] VITALS: BP 98/59; RESP 18
[2017-05-09] MEDS: HYDROCODONE/APAP (5/325) TAB PO PRN ×3 (03:55→20:32)
[2017-05-09] MEDS: SOD CHLORIDE 0.9% 1,000 ML IV SCH ×3 (03:55→17:49)
[2017-05-09] MEDS: RIVAROXABAN 15 MG TABLET PO SCH ×2 (08:40→17:50)
[2017-05-09] MEDS: CEFTRIAXONE 1 GM/50 ML (PMX) 50 ML IVPB SCH ×2 (08:41→21:43)
[2017-05-09 08:43] VITALS: BP 135/68; RESP 18
[2017-05-09] MEDS: ALBUTEROL/IPRATROPIUM (NEB) 3 ML AMP HHN SCH ×4 (08:44→21:00)
[2017-05-09] MEDS: SODIUM HYPOCHLORITE 0.125% 473 ML BTL IRR SCH (09:00)
[2017-05-09] MEDS: MULTIVITAMINS THERAPEUTIC TAB PO SCH (09:23)
[2017-05-09] MEDS: FAMOTIDINE 20 MG TAB PO SCH (09:23)
[2017-05-09] MEDS: FERROUS SULFATE (EC) 325 MG TAB PO SCH ×3 (09:23→21:43)
[2017-05-09] MEDS: GABAPENTIN 300 MG CAP PO SCH ×3 (09:23→21:43)
[2017-05-09] MEDS: ASCORBIC ACID 500 MG TAB PO SCH (09:23)
[2017-05-09] MEDS: DOCUSATE SODIUM 100 MG CAP PO SCH ×2 (09:23→21:43)
[2017-05-09] MEDS: MIDODRINE 5 MG TAB PO SCH ×3 (09:24→21:43)
[2017-05-09] MEDS ORDERED: BACLOFEN 10 MG TAB PO ONE (11:30)
--- NOTE | 2017-05-09 13:51 | CONS ---
Date/Time of Note Date/Time of Note DATE: 05/09/17 TIME: 13:49 Consult Date/Type/Reason Admit Date/Time Apr 26, 2017 at 13:31 Initial Consult Date 04/27/17 Type of Consultation: ID Ordering Provider: MANUELITO KUMAR MD Objective Vital Signs Date Time Temp Pulse Resp B/P Pulse Ox O2 Delivery O2 Flow Rate FiO2 05/09/17 11:32 83 17 96 21 05/09/17 08:43 98.2 135/68 Intake and Output 05/08/17 05/08/17 05/09/17 15:00 23:00 07:00 Intake Total 50 ml 1650 ml 1050 ml Output Total 400 ml 350 ml Balance 50 ml 1250 ml 700 ml Results/Medications Medications Current Medications Ondansetron HCl (Zofran Inj) 4 mg Q6H PRN IV NAUSEA AND/OR VOMITING Last administered on 05/05/17 02:27; Admin Dose 4 MG; Start 04/26/17 at 15:00 Morphine Sulfate (morphine) 2 mg Q4H PRN IV SEVERE PAIN LEVEL 7-10 Last administered on 04/30/17 21:02; Admin Dose 2 MG; Start 04/26/17 at 15:00; Status Future Hold Ascorbic Acid (Vitamin C) 500 mg DAILY PO Last administered on 05/09/17 09:23 ; Admin Dose 500 MG; Start 04/27/17 at 09:00 Docusate Sodium (Colace) 100 mg BID PO Last administered on 05/09/17 09:23; Admin Dose 100 MG; Start 04/26/17 at 21:00 Famotidine (Pepcid) 20 mg DAILY PO Last administered on 05/09/17 09:23; Admin Dose 20 MG; Start 04/27/17 at 09:00 Ferrous Sulfate (Ferrous Sulfate (Ec)) 325 mg TID PO Last administered on 05/09 09:23; Admin Dose 325 MG; Start 04/26/17 at 21:00 Gabapentin (Neurontin) 600 mg TID PO Last administered on 05/09/17 09:23; Admin Dose 600 MG; Start 04/26/17 at 21:00 Midodrine (Proamatine) 10 mg TID PO Last administered on 05/09/17 09:24; Admin Dose 10 MG; Start 04/26/17 at 21:00 Multivitamins Therapeutic (Theragran) 1 tab DAILY PO Last administered on 05/09 09:23; Admin Dose 1 TAB; Start 04/27/17 at 09:00 Hydralazine HCl (Apresoline) 10 mg Q6 PRN IV ELEVATED SYSTOLIC BP; Start at 22:33 Sodium Hypochlorite (Dakin'S (1/4 Strength)) 1 applic DAILY IRR Last administered on 05/07/17 09:51; Admin Dose 1 APPLIC; Start 04/27/17 at 14:30 Bisacodyl (Dulcolax Supp) 10 mg DAILY PRN [place] CONSTIPATION Last administered on 05/04/17 06:19; Admin Dose 10 MG; Start 04/29/17 at 14:30 Acetaminophen/ Hydrocodone Bitart 1 tab 1 tab Q4H PRN PO severe pain Last administered on 05/09/17 08:40; Admin Dose 1 TAB; Start 05/07/17 at 23:00 Ceftriaxone Sodium (Rocephin) 50 ml @ 100 mls/hr Q12 IVPB Last administered on 05/09/17 08:41; Admin Dose 100 MLS/HR; Start 05/07/17 at 23:00 Acetaminophen 500 mg 500 mg Q6H PRN PO PAIN AND OR ELEVATED TEMP Last administered on 05/07/17 22:58; Admin Dose 500 MG; Start 05/07/17 at 23:00 Sodium Chloride (NS) 1,000 ml @ 100 mls/hr Q10H IV Last administered on 03:55; Admin Dose 100 MLS/HR; Start 05/08/17 at 02:30 Assessment/Plan Chief Complaint/Hosp Course SUBJECTIVE: No events overnight. Alert, feels good, looks comfortable. Afebrile MICROBIOLOGY: Urine culture on admission grew Providencia stuartii and E coli ESBL. Blood cultures negative. DIAGNOSTICS: CT of the chest on admission revealed no evidence of PE. Extensive centrilobular emphysema and bibasilar atelectasis. Ultrasound of the lower extremities revealed no DVT. PHYSICAL EXAMINATION: GENERAL: Middle-aged, chronically ill-appearing, -[place] woman who is alert, in no distress. HEENT: Head atraumatic, normocephalic. Sclerae anicteric. Buccal mucosa pink , with white thrush on her tongue. NECK: Supple. CHEST: Rise symmetrical. Breath sounds diminished to bases. HEART: S1, S2. ABDOMEN: Soft. Bowel tones present. EXTREMITIES: Wasted without cyanosis. ASSESSMENT: 1. Urinary tract infection==> treated. 2. Multiple wounds==> not infected per dw surgical team, cx + colonized, s/p debridement. 3. Quadriplegia. 4. Status post acute hypoxemic respiratory failure. 5. Anemia. 6. Deep venous thrombosis. PLAN: The patient remains stable, s/p low grade fever on 05/07, started on Rocephin, will order cxr, continue local wound care as per surgical recommendations. staff Problems: MARCIN GALVEZ NP May 09, 2017 13:50
[2017-05-09 14:36] VITALS: BP 99/55; RESP 17
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
--- NOTE | 2017-05-09 16:34 | RADRPT ---
PROCEDURE: XR Chest. CLINICAL INDICATION: Cough TECHNIQUE: Single portable view of the chest was obtained. COMPARISON: 04/26/2017 FINDINGS: Cardiac/vascular structures: Stable cardiomediastinal silhouette. Pulmonary: Lungs are clear. No pleural effusion. No evidence of pneumothorax. Osseous structures: Partially visualized cervical spine hardware. Old appearing fracture deformitie s of the right second and third ribs. Soft tissues: Normal IMPRESSION: No acute cardiopulmonary disease. RPTAT:AAJJ Brandon Sibley Physician Date Time Electronically viewed and signed by Brandon Sibley Physician on 05/09/2017 16:34 /
--- NOTE | 2017-05-09 17:55 | PN ---
Date/Time of Note Date/Time of Note DATE: 05/09/17 TIME: 17:54 Assessment/Plan Lines/Catheters IV Catheter Type (from [facility]): Mid Line Jacques in Place (from [facility]): Yes Assessment/Plan Chief Complaint/Hosp Course 1. Multiple wounds: 2/2 immobility; s/p debridement bilateral ischials 05/09/17 ; cultures noted -debridement prn -continue local care with dakins (to be continued outpatient) -frequent turning and off-loading -low air loss mattress -vitamin c -short term zinc -optimize nutrition -abx per sensitivity 2. UTI: -abx per sensitivity -frequent bladder emptying/cath care 3. Acute hypoxic respiratory failure: CXR and CT noted; currently comfortable without supplemental oxygen -BD's -pulm toilet -monitor 4. Hypochromic normocytic anemia: no acute bleed -monitor -transfuse as needed 5. Hypocalcemia: nutritional +/- inflammation +/- other -nutrition optimization -as above Thank you, Problems: Subjective 24 Hr Interval Summary No fevers. Jacques replaced. No acute events. No chills, sob, congested cough, cp, palpitations, gar, dizziness, n/v/d/dysuria. Exam/Review of Systems Vital Signs Vitals Vital Signs Date Time Temp Pulse Resp B/P Pulse Ox O2 Delivery O2 Flow Rate FiO2 05/09/17 14:36 98.3 97 17 99/55 95 05/09/17 11:32 21 Intake and Output 05/08/17 05/08/17 05/09/17 15:00 23:00 07:00 Intake Total 50 ml 1650 ml 1050 ml Output Total 400 ml 350 ml Balance 50 ml 1250 ml 700 ml Exam Free Text/Dictation Constitutional: alert, oriented Psych: nl mood/affect, somnolent Head: atraumatic, normocephalic Eyes: nl lids, nl sclera ENMT: mucosa pink and moist, nl nasal mucosa & septum Neck: non-tender, supple Respiratory: diminished breath sounds Cardiovascular: nl pulses, regular rate and rhythm Gastrointestinal: non-tender, soft Genitourinary - Female: nl external genitalia Musculoskeletal: muscle weakness, other (bilat foot drop), No muscle tone Extremities: normal pulses, No edema 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: nl mental status, nl speech, other (paraplegia; hand contractures ) Skin: other (hip and ischial wounds (packed; no odor, min drainage)) BRIDGETTE DIAS MD May 09, 2017 17:55
[2017-05-09 20:16] VITALS: BP 105/63; RESP 19
[2017-05-10] MEDS: HYDROCODONE/APAP (5/325) TAB PO PRN ×3 (00:36→21:43)
[2017-05-10] MEDS: SOD CHLORIDE 0.9% 1,000 ML IV SCH ×3 (01:40→13:59)
[2017-05-10 01:54] VITALS: BP 130/60; RESP 19
[2017-05-10] MEDS: CEFTRIAXONE 1 GM/50 ML (PMX) 50 ML IVPB SCH (08:35)
[2017-05-10] MEDS: FERROUS SULFATE (EC) 325 MG TAB PO SCH ×3 (08:36→21:43)
[2017-05-10] MEDS: DOCUSATE SODIUM 100 MG CAP PO SCH ×2 (08:36→21:43)
[2017-05-10] MEDS: ASCORBIC ACID 500 MG TAB PO SCH (08:37)
[2017-05-10] MEDS: MULTIVITAMINS THERAPEUTIC TAB PO SCH (08:37)
[2017-05-10] MEDS: GABAPENTIN 300 MG CAP PO SCH ×3 (08:37→21:43)
[2017-05-10] MEDS: FAMOTIDINE 20 MG TAB PO SCH (08:37)
[2017-05-10] MEDS: RIVAROXABAN 15 MG TABLET PO SCH ×2 (08:37→18:42)
[2017-05-10] MEDS: SODIUM HYPOCHLORITE 0.125% 473 ML BTL IRR SCH (08:40)
[2017-05-10] MEDS: MIDODRINE 5 MG TAB PO SCH ×3 (08:45→21:43)
[2017-05-10 08:46] VITALS: BP 93/58; PULSE 94
[2017-05-10] MEDS: ALBUTEROL/IPRATROPIUM (NEB) 3 ML AMP HHN SCH ×4 (09:00→20:21)
--- NOTE | 2017-05-10 10:23 | PN ---
Date/Time of Note Date/Time of Note DATE: 05/10/17 TIME: 10:20 Assessment/Plan Lines/Catheters IV Catheter Type (from Nrs): Mid Line Jacques in Place (from Nrs): Yes Assessment/Plan Chief Complaint/Hosp Course 1. Multiple wounds: 2/2 immobility; s/p debridement bilateral ischials 05/09/17 ; cultures noted -debridement prn -continue local care with dakins (to be continued outpatient) -frequent turning and off-loading -low air loss mattress -vitamin c -short term zinc -optimize nutrition -abx per sensitivity 2. UTI: -abx per sensitivity -frequent bladder emptying/cath care 3. Acute hypoxic respiratory failure: resolved -BD's -pulm toilet -monitor 4. Hypochromic normocytic anemia: no acute bleed -monitor -transfuse as needed 5. Hypocalcemia: nutritional +/- inflammation +/- other -nutrition optimization -as above 6. Hypotension: resolved Thank you. Patient seen and examined in collaboration with Dr. Mike Mota. Problems: Subjective 24 Hr Interval Summary Feels ok. Min sob this morning but no distress. No fevers, chills, sob, congested cough, cp, palpitations, gar, dizziness, n/v/d/dysuria, excessive wound drainage, odor. Exam/Review of Systems Vital Signs Vitals Vital Signs Date Time Temp Pulse Resp B/P Pulse Ox O2 Delivery O2 Flow Rate FiO2 05/10/17 09:25 16 21 05/10/17 08:46 94 93/58 05/10/17 01:54 98.1 98 Intake and Output 05/09/17 05/09/17 05/10/17 14:59 22:59 06:59 Intake Total 950 ml 830 ml 1455 ml Output Total 500 ml 700 ml Balance 950 ml 330 ml 755 ml Exam Free Text/Dictation Constitutional: alert, oriented Psych: nl mood/affect, Head: atraumatic, normocephalic Eyes: nl lids, nl sclera ENMT: mucosa pink and moist, nl nasal mucosa & septum Neck: non-tender, supple Respiratory: diminished breath sounds Cardiovascular: nl pulses, regular rate and rhythm Gastrointestinal: non-tender, soft Genitourinary - Female: nl external genitalia Musculoskeletal: muscle weakness, other (bilat foot drop), No muscle tone Extremities: normal pulses, No edema 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: nl mental status, nl speech, other (paraplegia; hand contractures ) Skin: other (hip and ischial wounds (packed; no odor, min drainage)) JOAN CARLSON NP May 10, 2017 10:23
--- NOTE | 2017-05-10 13:19 | CONS ---
Date/Time of Note Date/Time of Note DATE: 05/10/17 TIME: 13:18 Consult Date/Type/Reason Admit Date/Time Apr 26, 2017 at 13:31 Initial Consult Date 04/27/17 Type of Consultation: ID Ordering Provider: MANUELITO KUMAR MD Objective Vital Signs Date Time Temp Pulse Resp B/P Pulse Ox O2 Delivery O2 Flow Rate FiO2 05/10/17 10:21 90 18 98 21 05/10/17 08:46 93/58 05/10/17 01:54 98.1 Intake and Output 05/09/17 05/09/17 05/10/17 15:00 23:00 07:00 Intake Total 950 ml 830 ml 1455 ml Output Total 500 ml 700 ml Balance 950 ml 330 ml 755 ml Results/Medications Medications Current Medications Ondansetron HCl (Zofran Inj) 4 mg Q6H PRN IV NAUSEA AND/OR VOMITING Last administered on 05/05/17 02:27; Admin Dose 4 MG; Start 04/26/17 at 15:00 Morphine Sulfate (morphine) 2 mg Q4H PRN IV SEVERE PAIN LEVEL 7-10 Last administered on 04/30/17 21:02; Admin Dose 2 MG; Start 04/26/17 at 15:00; Status Future Hold Ascorbic Acid (Vitamin C) 500 mg DAILY PO Last administered on 05/10/17 08:37 ; Admin Dose 500 MG; Start 04/27/17 at 09:00 Docusate Sodium (Colace) 100 mg BID PO Last administered on 05/10/17 08:36; Admin Dose 100 MG; Start 04/26/17 at 21:00 Famotidine (Pepcid) 20 mg DAILY PO Last administered on 05/10/17 08:37; Admin Dose 20 MG; Start 04/27/17 at 09:00 Ferrous Sulfate (Ferrous Sulfate (Ec)) 325 mg TID PO Last administered on 05/10 08:36; Admin Dose 325 MG; Start 04/26/17 at 21:00 Gabapentin (Neurontin) 600 mg TID PO Last administered on 05/10/17 08:37; Admin Dose 600 MG; Start 04/26/17 at 21:00 Midodrine (Proamatine) 10 mg TID PO Last administered on 05/10/17 08:45; Admin Dose 10 MG; Start 04/26/17 at 21:00 Multivitamins Therapeutic (Theragran) 1 tab DAILY PO Last administered on 05/10 08:37; Admin Dose 1 TAB; Start 04/27/17 at 09:00 Hydralazine HCl (Apresoline) 10 mg Q6 PRN IV ELEVATED SYSTOLIC BP; Start at 22:33 Sodium Hypochlorite (Dakin'S (1/4 Strength)) 1 applic DAILY IRR Last administered on 05/10/17 08:40; Admin Dose 1 APPLIC; Start 04/27/17 at 14:30 Bisacodyl (Dulcolax Supp) 10 mg DAILY PRN [place] CONSTIPATION Last administered on 05/04/17 06:19; Admin Dose 10 MG; Start 04/29/17 at 14:30 Acetaminophen/ Hydrocodone Bitart 1 tab 1 tab Q4H PRN PO severe pain Last administered on 05/10/17 00:36; Admin Dose 1 TAB; Start 05/07/17 at 23:00 Ceftriaxone Sodium (Rocephin) 50 ml @ 100 mls/hr Q12 IVPB Last administered on 05/10/17 08:35; Admin Dose 100 MLS/HR; Start 05/07/17 at 23:00 Acetaminophen 500 mg 500 mg Q6H PRN PO PAIN AND OR ELEVATED TEMP Last administered on 05/07/17 22:58; Admin Dose 500 MG; Start 05/07/17 at 23:00 Sodium Chloride (NS) 1,000 ml @ 100 mls/hr Q10H IV Last administered on 01:40; Admin Dose 100 MLS/HR; Start 05/08/17 at 02:30 Assessment/Plan Chief Complaint/Hosp Course SUBJECTIVE: No events overnight. Alert, feels good, looks comfortable. Afebrile MICROBIOLOGY: Urine culture on admission grew Providencia stuartii and E coli ESBL. Blood cultures negative. DIAGNOSTICS: CT of the chest on admission revealed no evidence of PE. Extensive centrilobular emphysema and bibasilar atelectasis. Ultrasound of the lower extremities revealed no DVT. PHYSICAL EXAMINATION: GENERAL: Middle-aged, chronically ill-appearing, -[place] woman who is alert, in no distress. HEENT: Head atraumatic, normocephalic. Sclerae anicteric. Buccal mucosa pink , with white thrush on her tongue. NECK: Supple. CHEST: Rise symmetrical. Breath sounds diminished to bases. HEART: S1, S2. ABDOMEN: Soft. Bowel tones present. EXTREMITIES: Wasted without cyanosis. ASSESSMENT: 1. Urinary tract infection==> treated. 2. Multiple wounds==> not infected per surgical team, cx + colonized, s/p debridement. 3. Quadriplegia. 4. Status post acute hypoxemic respiratory failure. 5. Anemia. 6. Deep venous thrombosis. PLAN: The patient remains stable, cxr negative, will dc abx, continue local wound care as per surgical recommendations. staff Problems: MARCIN GALVEZ NP May 10, 2017 13:19
--- NOTE | 2017-05-10 15:09 | PN ---
Date/Time of Note Date/Time of Note DATE: 05/10/17 TIME: 15:05 Assessment/Plan VTE Prophylaxis VTE Prophylaxis Intervention: SCD's Lines/Catheters IV Catheter Type (from Nrsg): Mid Line Urinary Cath still in place: Yes Reason Cath still needed: urinary retention Assessment/Plan Assessment/Plan 1. Urinary tract infection ESBL E. Coli/proteus mirabilis, treated 2. Multiple wounds, not infected per dw surgical team, cx + colonized, continue wound care, started on rocephin 05/07/2017 for low grade fever 3. Quadriplegia. 4. Status post acute hypoxemic respiratory failure, improved 5. Anemia. 6. Awaiting for insurance to approve for placement 7. Constipation, laxative Subjective 24 Hr Interval Summary Free Text/Dictation constipation Exam/Review of Systems Vital Signs Vitals Vital Signs Date Time Temp Pulse Resp B/P Pulse Ox O2 Delivery O2 Flow Rate FiO2 05/10/17 10:21 90 18 98 21 05/10/17 08:46 93/58 05/10/17 01:54 98.1 Intake and Output 05/09/17 05/09/17 05/10/17 15:00 23:00 07:00 Intake Total 950 ml 830 ml 1455 ml Output Total 500 ml 700 ml Balance 950 ml 330 ml 755 ml Exam Constitutional: alert, oriented, well developed Psych: nl mood/affect, no complaints Head: atraumatic, normocephalic Eyes: EOMI, PERRL, nl conjunctiva, nl lids ENMT: nl external ears & nose, nl lips & teeth, nl nasal mucosa & septum Neck: non-tender, supple Respiratory: clear to auscultation, normal air movement, No congested cough, No crackles/rales, No diminished breath sounds, No intercostal retraction, No labored breathing, No other, No respirations, No tactile fremitus, No wheezing Cardiovascular: nl pulses, regular rate and rhythm, No S3, No S4, No bruits, No diastolic murmur, No edema, No gallop, No irregular rhythm, No jugular venous distention (JVD), No murmurs/extra sounds, No other, No rub, No systolic murmur Gastrointestinal: nl liver, spleen, non-tender, soft Musculoskeletal: nl extremities to inspection Extremities: normal pulses 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, nl mental status, nl speech Medications Medications Current Medications Ondansetron HCl (Zofran Inj) 4 mg Q6H PRN IV NAUSEA AND/OR VOMITING Last administered on 05/05/17 02:27; Admin Dose 4 MG; Start 04/26/17 at 15:00 Morphine Sulfate (morphine) 2 mg Q4H PRN IV SEVERE PAIN LEVEL 7-10 Last administered on 04/30/17 21:02; Admin Dose 2 MG; Start 04/26/17 at 15:00; Status Future Hold Ascorbic Acid (Vitamin C) 500 mg DAILY PO Last administered on 05/10/17 08:37 ; Admin Dose 500 MG; Start 04/27/17 at 09:00 Docusate Sodium (Colace) 100 mg BID PO Last administered on 05/10/17 08:36; Admin Dose 100 MG; Start 04/26/17 at 21:00 Famotidine (Pepcid) 20 mg DAILY PO Last administered on 05/10/17 08:37; Admin Dose 20 MG; Start 04/27/17 at 09:00 Ferrous Sulfate (Ferrous Sulfate (Ec)) 325 mg TID PO Last administered on 05/10 13:59; Admin Dose 325 MG; Start 04/26/17 at 21:00 Gabapentin (Neurontin) 600 mg TID PO Last administered on 05/10/17 13:59; Admin Dose 600 MG; Start 04/26/17 at 21:00 Midodrine (Proamatine) 10 mg TID PO Last administered on 05/10/17 08:45; Admin Dose 10 MG; Start 04/26/17 at 21:00 Multivitamins Therapeutic (Theragran) 1 tab DAILY PO Last administered on 05/10 08:37; Admin Dose 1 TAB; Start 04/27/17 at 09:00 Hydralazine HCl (Apresoline) 10 mg Q6 PRN IV ELEVATED SYSTOLIC BP; Start at 22:33 Sodium Hypochlorite (Dakin'S (1/4 Strength)) 1 applic DAILY IRR Last administered on 05/10/17 08:40; Admin Dose 1 APPLIC; Start 04/27/17 at 14:30 Bisacodyl (Dulcolax Supp) 10 mg DAILY PRN [place] CONSTIPATION Last administered on 05/04/17 06:19; Admin Dose 10 MG; Start 04/29/17 at 14:30 Acetaminophen/ Hydrocodone Bitart ([employer] (5/325)) 1 tab Q4H PRN PO severe pain Last administered on 05/10/17 00:36; Admin Dose 1 TAB; Start 05/07/17 at 23: 00 Acetaminophen 500 mg 500 mg Q6H PRN PO PAIN AND OR ELEVATED TEMP Last administered on 05/07/17 22:58; Admin Dose 500 MG; Start 05/07/17 at 23:00 Sodium Chloride (NS) 1,000 ml @ 100 mls/hr Q10H IV Last administered on 13:59; Admin Dose 100 MLS/HR; Start 05/08/17 at 02:30 DESIREE GILBERT MD May 10, 2017 15:09
[2017-05-10 15:14] VITALS: BP 110/64; RESP 18
[2017-05-10] MEDS: BACLOFEN 10 MG TAB PO PRN (17:26)
[2017-05-10 20:53] VITALS: BP 93/55; RESP 19
[2017-05-11] MEDS: ACETAMINOPHEN 500 MG TAB PO PRN (01:18)
[2017-05-11] MEDS: HYDROCODONE/APAP (5/325) TAB PO PRN ×3 (02:16→17:58)
[2017-05-11 03:12] VITALS: BP 105/62; RESP 18
[2017-05-11] MEDS: BISACODYL 10 MG SUPP PR PRN (06:55)
[2017-05-11 08:08] VITALS: BP 110/65; RESP 16
[2017-05-11] MEDS: RIVAROXABAN 15 MG TABLET PO SCH ×2 (08:47→18:46)
[2017-05-11] MEDS: DOCUSATE SODIUM 100 MG CAP PO SCH ×2 (08:48→20:42)
[2017-05-11] MEDS: ASCORBIC ACID 500 MG TAB PO SCH (08:48)
[2017-05-11] MEDS: MULTIVITAMINS THERAPEUTIC TAB PO SCH (08:48)
[2017-05-11] MEDS: FAMOTIDINE 20 MG TAB PO SCH (08:48)
[2017-05-11] MEDS: MIDODRINE 5 MG TAB PO SCH ×3 (08:48→20:41)
[2017-05-11] MEDS: GABAPENTIN 300 MG CAP PO SCH ×3 (08:48→20:40)
[2017-05-11] MEDS: FERROUS SULFATE (EC) 325 MG TAB PO SCH ×3 (08:48→20:41)
[2017-05-11] MEDS: SODIUM HYPOCHLORITE 0.125% 473 ML BTL IRR SCH (08:49)
[2017-05-11] MEDS: ALBUTEROL/IPRATROPIUM (NEB) 3 ML AMP HHN SCH ×4 (09:00→20:10)
--- NOTE | 2017-05-11 12:53 | PN ---
Date/Time of Note Date/Time of Note DATE: 05/11/17 TIME: 12:50 Assessment/Plan Lines/Catheters IV Catheter Type (from Nrs): Mid Line Jacques in Place (from Nrs): Yes Assessment/Plan Chief Complaint/Hosp Course 1. Multiple wounds: 2/2 immobility; s/p debridement bilateral ischials 05/09/17 ; cultures noted -debridement prn -continue local care with dakins (to be continued outpatient)- increased to bid -frequent turning and off-loading -low air loss mattress -vitamin c -short term zinc -optimize nutrition 2. UTI: s/p abx -frequent bladder emptying/cath care 3. Acute hypoxic respiratory failure: resolved -BD's -pulm toilet -monitor 4. Hypochromic normocytic anemia: no acute bleed -monitor -transfuse as needed 5. Hypocalcemia: nutritional +/- inflammation +/- other -nutrition optimization -as above 6. Hypotension: resolved Thank you. Patient seen and examined in collaboration with Dr. Mike Mota. Problems: Subjective 24 Hr Interval Summary Noted increase in drainage from wounds, min odor. Will increase dressing changes. Pending insurance auth for discharge. No fevers, chills, sob, congested cough, cp, palpitations, gar, dizziness, n/v/d/dysuria. Exam/Review of Systems Vital Signs Vitals Vital Signs Date Time Temp Pulse Resp B/P Pulse Ox O2 Delivery O2 Flow Rate FiO2 05/11/17 08:08 98.7 97 16 110/65 95 05/10/17 10:21 21 Intake and Output 05/10/17 05/10/17 05/11/17 14:59 22:59 06:59 Intake Total 700 ml 580 ml 360 ml Output Total 500 ml 450 ml Balance 700 ml 80 ml -90 ml Exam Free Text/Dictation Constitutional: alert, oriented Psych: nl mood/affect, Head: atraumatic, normocephalic Eyes: nl lids, nl sclera ENMT: mucosa pink and moist, nl nasal mucosa & septum Neck: non-tender, supple Respiratory: diminished breath sounds Cardiovascular: nl pulses, regular rate and rhythm Gastrointestinal: non-tender, soft Genitourinary - Female: nl external genitalia Musculoskeletal: muscle weakness, other (bilat foot drop), No muscle tone Extremities: normal pulses, No edema 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: nl mental status, nl speech, other (paraplegia; hand contractures ) Skin: other (hip and ischial wounds (packed; no odor, min drainage)) JOAN CARLSON NP May 11, 2017 12:53
[2017-05-11] MEDS: BACLOFEN 10 MG TAB PO PRN ×2 (13:14→20:42)
--- NOTE | 2017-05-11 14:36 | CONS ---
Date/Time of Note Date/Time of Note DATE: 05/11/17 TIME: 14:34 Consult Date/Type/Reason Admit Date/Time Apr 26, 2017 at 13:31 Initial Consult Date 04/27/17 Type of Consultation: ID Ordering Provider: MANUELITO KUMAR MD Objective Vital Signs Date Time Temp Pulse Resp B/P Pulse Ox O2 Delivery O2 Flow Rate FiO2 05/11/17 08:08 98.7 97 16 110/65 95 05/10/17 10:21 21 Intake and Output 05/10/17 05/10/17 05/11/17 15:00 23:00 07:00 Intake Total 800 ml 480 ml 360 ml Output Total 500 ml 450 ml Balance 800 ml -20 ml -90 ml Results/Medications Medications Current Medications Ondansetron HCl (Zofran Inj) 4 mg Q6H PRN IV NAUSEA AND/OR VOMITING Last administered on 05/05/17 02:27; Admin Dose 4 MG; Start 04/26/17 at 15:00 Morphine Sulfate (morphine) 2 mg Q4H PRN IV SEVERE PAIN LEVEL 7-10 Last administered on 04/30/17 21:02; Admin Dose 2 MG; Start 04/26/17 at 15:00; Status Future Hold Ascorbic Acid (Vitamin C) 500 mg DAILY PO Last administered on 05/11/17 08:48 ; Admin Dose 500 MG; Start 04/27/17 at 09:00 Docusate Sodium (Colace) 100 mg BID PO Last administered on 05/11/17 08:48; Admin Dose 100 MG; Start 04/26/17 at 21:00 Famotidine (Pepcid) 20 mg DAILY PO Last administered on 05/11/17 08:48; Admin Dose 20 MG; Start 04/27/17 at 09:00 Ferrous Sulfate (Ferrous Sulfate (Ec)) 325 mg TID PO Last administered on 05/11 13:14; Admin Dose 325 MG; Start 04/26/17 at 21:00 Gabapentin (Neurontin) 600 mg TID PO Last administered on 05/11/17 13:15; Admin Dose 600 MG; Start 04/26/17 at 21:00 Midodrine (Proamatine) 10 mg TID PO Last administered on 05/11/17 13:15; Admin Dose 10 MG; Start 04/26/17 at 21:00 Multivitamins Therapeutic (Theragran) 1 tab DAILY PO Last administered on 05/11 08:48; Admin Dose 1 TAB; Start 04/27/17 at 09:00 Hydralazine HCl (Apresoline) 10 mg Q6 PRN IV ELEVATED SYSTOLIC BP; Start at 22:33 Sodium Hypochlorite (Dakin'S (1/4 Strength)) 1 applic DAILY IRR Last administered on 05/11/17 08:49; Admin Dose 1 APPLIC; Start 04/27/17 at 14:30 Bisacodyl (Dulcolax Supp) [address] CONSTIPATION Last administered on 05/11/17 06:55; Admin Dose 10 MG; Start 04/29/17 at 14:30 Acetaminophen/ Hydrocodone Bitart ([place] (5/325)) 1 tab Q4H PRN PO severe pain Last administered on 05/11/17 06:23; Admin Dose 1 TAB; Start 05/07/17 at 23: 00 Acetaminophen (Tylenol Tab) 500 mg Q6H PRN PO PAIN AND OR ELEVATED TEMP Last administered on 05/11/17 01:18; Admin Dose 500 MG; Start 05/07/17 at 23:00 Baclofen (Lioresal) 5 mg TID PRN PO back pain Last administered on 05/11/17 13:14; Admin Dose 5 MG; Start 05/10/17 at 16:00 Assessment/Plan Chief Complaint/Hosp Course SUBJECTIVE: No events overnight. Low grade temps, nad MICROBIOLOGY: Urine culture on admission grew Providencia stuartii and E coli ESBL. Blood cultures negative. DIAGNOSTICS: CT of the chest on admission revealed no evidence of PE. Extensive centrilobular emphysema and bibasilar atelectasis. Ultrasound of the lower extremities revealed no DVT. PHYSICAL EXAMINATION: GENERAL: Middle-aged, chronically ill-appearing, -Citizen Of [place] woman who is alert, in no distress. HEENT: Head atraumatic, normocephalic. Sclerae anicteric. Buccal mucosa pink , with white thrush on her tongue. NECK: Supple. CHEST: Rise symmetrical. Breath sounds diminished to bases. HEART: S1, S2. ABDOMEN: Soft. Bowel tones present. EXTREMITIES: Wasted without cyanosis. ASSESSMENT: 1. Urinary tract infection==> treated. 2. Multiple wounds==> not infected per dw surgical team, cx + colonized, s/p debridement. 3. Quadriplegia. 4. Status post acute hypoxemic respiratory failure. 5. Anemia. 6. Deep venous thrombosis. PLAN: The patient remains stable, with low grade temps, will start Vanco and Invanz for poss wound infection, continue local wound care as per surgical recommendations. staff Problems: MARCIN GALVEZ NP May 11, 2017 14:36
[2017-05-11] MEDS ORDERED: VANCOMYCIN IV PER PHARMACY XX SCH (15:00)
--- NOTE | 2017-05-11 15:06 | PN ---
Date/Time of Note Date/Time of Note DATE: 05/11/17 TIME: 15:05 Assessment/Plan VTE Prophylaxis VTE Prophylaxis Intervention: SCD's Lines/Catheters IV Catheter Type (from Nrsg): midline Urinary Cath still in place: Yes Reason Cath still needed: urinary retention Assessment/Plan Assessment/Plan 1. Urinary tract infection ESBL E. Coli/proteus mirabilis, treated 2. Multiple wounds, not infected per dw surgical team, cx + colonized, continue wound care, started on rocephin 05/07/2017 for low grade fever 3. Quadriplegia. 4. Status post acute hypoxemic respiratory failure, improved 5. Anemia. chronic 6. Awaiting for insurance to approve for placement Subjective 24 Hr Interval Summary Free Text/Dictation no event Exam/Review of Systems Vital Signs Vitals Vital Signs Date Time Temp Pulse Resp B/P Pulse Ox O2 Delivery O2 Flow Rate FiO2 05/11/17 08:08 98.7 97 16 110/65 95 05/10/17 10:21 21 Intake and Output 05/10/17 05/10/17 05/11/17 14:59 22:59 06:59 Intake Total 700 ml 580 ml 360 ml Output Total 500 ml 450 ml Balance 700 ml 80 ml -90 ml Exam Constitutional: alert, oriented, well developed Psych: nl mood/affect, no complaints Head: atraumatic, normocephalic Eyes: EOMI, PERRL, nl conjunctiva, nl lids, nl sclera ENMT: nl external ears & nose, nl lips & teeth Neck: non-tender, supple Respiratory: clear to auscultation, normal air movement, No congested cough, No crackles/rales, No diminished breath sounds, No intercostal retraction, No labored breathing, No other, No respirations, No tactile fremitus, No wheezing Cardiovascular: nl pulses, regular rate and rhythm, No S3, No S4, No bruits, No diastolic murmur, No edema, No gallop, No irregular rhythm, No jugular venous distention (JVD), No murmurs/extra sounds, No other, No rub, No systolic murmur Gastrointestinal: nl liver, spleen, soft Musculoskeletal: nl extremities to inspection Extremities: normal pulses 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: GROCERY STOCKER II-XII intact, nl mental status, nl speech Medications Medications Current Medications Ondansetron HCl (Zofran Inj) 4 mg Q6H PRN IV NAUSEA AND/OR VOMITING Last administered on 05/05/17 02:27; Admin Dose 4 MG; Start 04/26/17 at 15:00 Morphine Sulfate (morphine) 2 mg Q4H PRN IV SEVERE PAIN LEVEL 7-10 Last administered on 04/30/17 21:02; Admin Dose 2 MG; Start 04/26/17 at 15:00; Status Future Hold Ascorbic Acid (Vitamin C) 500 mg DAILY PO Last administered on 05/11/17 08:48 ; Admin Dose 500 MG; Start 04/27/17 at 09:00 Docusate Sodium (Colace) 100 mg BID PO Last administered on 05/11/17 08:48; Admin Dose 100 MG; Start 04/26/17 at 21:00 Famotidine (Pepcid) 20 mg DAILY PO Last administered on 05/11/17 08:48; Admin Dose 20 MG; Start 04/27/17 at 09:00 Ferrous Sulfate (Ferrous Sulfate (Ec)) 325 mg TID PO Last administered on 05/11 13:14; Admin Dose 325 MG; Start 04/26/17 at 21:00 Gabapentin (Neurontin) 600 mg TID PO Last administered on 05/11/17 13:15; Admin Dose 600 MG; Start 04/26/17 at 21:00 Midodrine (Proamatine) 10 mg TID PO Last administered on 05/11/17 13:15; Admin Dose 10 MG; Start 04/26/17 at 21:00 Multivitamins Therapeutic (Theragran) 1 tab DAILY PO Last administered on 05/11 08:48; Admin Dose 1 TAB; Start 04/27/17 at 09:00 Hydralazine HCl (Apresoline) 10 mg Q6 PRN IV ELEVATED SYSTOLIC BP; Start at 22:33 Sodium Hypochlorite (Dakin'S (1/4 Strength)) 1 applic DAILY IRR Last administered on 05/11/17 08:49; Admin Dose 1 APPLIC; Start 04/27/17 at 14:30 Bisacodyl (Dulcolax Supp) 10 mg DAILY PRN [place] CONSTIPATION Last administered on 05/11/17 06:55; Admin Dose 10 MG; Start 11/4/17 at 14:30 Acetaminophen/ Hydrocodone Bitart ([place] (5/325)) 1 tab Q4H PRN PO severe pain Last administered on 05/11/17 06:23; Admin Dose 1 TAB; Start 05/07/17 at 23: 00 Acetaminophen (Tylenol Tab) 500 mg Q6H PRN PO PAIN AND OR ELEVATED TEMP Last administered on 05/11/17 01:18; Admin Dose 500 MG; Start 05/07/17 at 23:00 Baclofen 5 mg 5 mg TID PRN PO back pain Last administered on 05/11/17 13:14; Admin Dose 5 MG; Start 05/10/17 at 16:00 Ertapenem/Sodium Chloride (Invanz/NS) 100 ml @ 200 mls/hr Q24H IVPB ; Start at 16:30 DESIREE GILBERT MD May 11, 2017 15:06
[2017-05-11] MEDS ORDERED: VANCOMYCIN 1 GM in NS 250 ML IVPB SCH (16:00)
[2017-05-11] MEDS: ERTAPENEM SODIUM 1 GM in SOD CHLORIDE 0.9% 100 ML IVPB SCH (17:09)
[2017-05-11 20:00] VITALS: BP 80/53; RESP 20
[2017-05-12 02:00] VITALS: BP 93/54; RESP 19
[2017-05-12] MEDS ORDERED: VANCOMYCIN 750 MG in DEXTROSE 5% 150 ML IVPB SCH (04:00)
[2017-05-12] MEDS: VANCOMYCIN 1 GM in NS 250 ML IVPB SCH ×2 (05:11→17:21)
[2017-05-12 06:37] LABS: CREATININE 0.34 mg/dl (0.44-1.00)
[2017-05-12] MEDS: HYDROCODONE/APAP (5/325) TAB PO PRN ×2 (06:37→12:44)
[2017-05-12 08:00] VITALS: BP 98/57; RESP 18
[2017-05-12] MEDS: SODIUM HYPOCHLORITE 0.125% 473 ML BTL IRR SCH (09:00)
[2017-05-12] MEDS: RIVAROXABAN 15 MG TABLET PO SCH ×2 (09:08→17:22)
[2017-05-12] MEDS: ASCORBIC ACID 500 MG TAB PO SCH (09:10)
[2017-05-12] MEDS: DOCUSATE SODIUM 100 MG CAP PO SCH (09:10)
[2017-05-12] MEDS: FAMOTIDINE 20 MG TAB PO SCH (09:11)
[2017-05-12] MEDS: GABAPENTIN 300 MG CAP PO SCH ×2 (09:11→12:43)
[2017-05-12] MEDS: MIDODRINE 5 MG TAB PO SCH ×2 (09:11→12:43)
[2017-05-12] MEDS: FERROUS SULFATE (EC) 325 MG TAB PO SCH ×2 (09:11→12:43)
[2017-05-12] MEDS: MULTIVITAMINS THERAPEUTIC TAB PO SCH (09:11)
[2017-05-12] MEDS: BACLOFEN 10 MG TAB PO PRN (10:37)
[2017-05-12] MEDS: ALBUTEROL/IPRATROPIUM (NEB) 3 ML AMP HHN SCH ×3 (11:06→17:00)
[2017-05-12 14:00] VITALS: BP 119/67; RESP 18
--- NOTE | 2017-05-12 14:43 | CONS ---
Date/Time of Note Date/Time of Note DATE: 05/12/17 TIME: 14:42 Consult Date/Type/Reason Admit Date/Time Apr 26, 2017 at 13:31 Initial Consult Date 04/27/17 Type of Consultation: ID Ordering Provider: MANUELITO KUMAR MD Objective Vital Signs Date Time Temp Pulse Resp B/P Pulse Ox O2 Delivery O2 Flow Rate FiO2 05/12/17 08:00 98.9 94 18 98/57 92 05/10/17 10:21 21 Intake and Output 05/11/17 05/11/17 05/12/17 14:59 22:59 06:59 Intake Total 830 ml 480 ml Output Total 400 ml 500 ml Balance 430 ml -20 ml Results/Medications Result Diagram: 05/12/17 0437 Results 24 hrs Laboratory Tests Test 05/12/17 04:37 Blood Urea Nitrogen 5 L Creatinine 0.34 L Medications Current Medications Ondansetron HCl (Zofran Inj) 4 mg Q6H PRN IV NAUSEA AND/OR VOMITING Last administered on 05/05/17 02:27; Admin Dose 4 MG; Start 04/26/17 at 15:00 Morphine Sulfate (morphine) 2 mg Q4H PRN IV SEVERE PAIN LEVEL 7-10 Last administered on 04/30/17 21:02; Admin Dose 2 MG; Start 04/26/17 at 15:00; Status Future Hold Ascorbic Acid (Vitamin C) 500 mg DAILY PO Last administered on 05/12/17 09:10 ; Admin Dose 500 MG; Start 04/27/17 at 09:00 Docusate Sodium (Colace) 100 mg BID PO Last administered on 05/12/17 09:10; Admin Dose 100 MG; Start 04/26/17 at 21:00 Famotidine (Pepcid) 20 mg DAILY PO Last administered on 05/12/17 09:11; Admin Dose 20 MG; Start 04/27/17 at 09:00 Ferrous Sulfate (Ferrous Sulfate (Ec)) 325 mg TID PO Last administered on 05/12 12:43; Admin Dose 325 MG; Start 04/26/17 at 21:00 Gabapentin (Neurontin) 600 mg TID PO Last administered on 05/12/17 12:43; Admin Dose 600 MG; Start 04/26/17 at 21:00 Midodrine (Proamatine) 10 mg TID PO Last administered on 05/12/17 12:43; Admin Dose 10 MG; Start 04/26/17 at 21:00 Multivitamins Therapeutic (Theragran) 1 tab DAILY PO Last administered on 05/12 09:11; Admin Dose 1 TAB; Start 04/27/17 at 09:00 Hydralazine HCl (Apresoline) 10 mg Q6 PRN IV ELEVATED SYSTOLIC BP; Start at 22:33 Sodium Hypochlorite (Dakin'S (1/4 Strength)) 1 applic DAILY IRR Last administered on 05/11/17 08:49; Admin Dose 1 APPLIC; Start 04/27/17 at 14:30 Bisacodyl (Dulcolax Supp) 10 mg DAILY PRN [place] CONSTIPATION Last administered on 05/11/17 06:55; Admin Dose 10 MG; Start 04/29/17 at 14:30 Acetaminophen/ Hydrocodone Bitart ([place] (5/325)) 1 tab Q4H PRN PO severe pain Last administered on 05/12/17 12:44; Admin Dose 1 TAB; Start 05/07/17 at 23: 00 Acetaminophen (Tylenol Tab) 500 mg Q6H PRN PO PAIN AND OR ELEVATED TEMP Last administered on 05/11/17 01:18; Admin Dose 500 MG; Start 05/07/17 at 23:00 Baclofen 5 mg 5 mg TID PRN PO back pain Last administered on 05/12/17 10:37; Admin Dose 5 MG; Start 05/10/17 at 16:00 Ertapenem 1 gm/ Sodium Chloride 100 ml @ 200 mls/hr Q24H IVPB Last administered on 05/11/17 17:09; Admin Dose 200 MLS/HR; Start 05/11/17 at 16: 30 Vancomycin HCl (Vancocin) 250 ml @ 125 mls/hr Q12H IVPB Last administered on 05/12/17 05:11; Admin Dose 125 MLS/HR; Start 05/12/17 at 06:00 Assessment/Plan Chief Complaint/Hosp Course SUBJECTIVE: No events overnight. looks comfortable MICROBIOLOGY: Urine culture on admission grew Providencia stuartii and E coli ESBL. Blood cultures negative. DIAGNOSTICS: CT of the chest on admission revealed no evidence of PE. Extensive centrilobular emphysema and bibasilar atelectasis. Ultrasound of the lower extremities revealed no DVT. Abx: Invanz, Vanco PHYSICAL EXAMINATION: GENERAL: Middle-aged, chronically ill-appearing, -[place] woman who is alert, in no distress. HEENT: Head atraumatic, normocephalic. Sclerae anicteric. Buccal mucosa pink , with white thrush on her tongue. NECK: Supple. CHEST: Rise symmetrical. Breath sounds diminished to bases. HEART: S1, S2. ABDOMEN: Soft. Bowel tones present. EXTREMITIES: Wasted without cyanosis. ASSESSMENT: 1. Urinary tract infection==> treated. 2. Multiple wounds==> not infected per dw surgical team, cx + colonized, s/p debridement. 3. Quadriplegia. 4. Status post acute hypoxemic respiratory failure. 5. Anemia. 6. Deep venous thrombosis. PLAN: The patient remains stable, started on Vanco and Invanz for ongoing low grade fevers/poss wound infection, continue local wound care as per surgical recommendations. staff Problems: MARCIN GALVEZ NP May 12, 2017 14:43
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
[2017-05-12] MEDS ORDERED: ERTA1VIA IV (15:34)
[2017-05-12] MEDS ORDERED: VANC1PLA10 IV (15:34)
[2017-05-12] MEDS: ERTAPENEM SODIUM 1 GM in SOD CHLORIDE 0.9% 100 ML IVPB SCH (16:18)
--- NOTE | 2017-05-12 16:55 | PN ---
Date/Time of Note Date/Time of Note DATE: 05/12/17 TIME: 16:52 Assessment/Plan Lines/Catheters IV Catheter Type (from Nrs): Mid Line Jacques in Place (from Nrs): Yes Assessment/Plan Chief Complaint/Hosp Course 1. Multiple wounds: 2/2 immobility; s/p debridement bilateral ischials 05/09/17 ; cultures noted -debridement prn -continue local care with dakins (to be continued outpatient)- bid -frequent turning and off-loading -low air loss mattress -vitamin c -short term zinc -optimize nutrition 2. UTI: s/p abx -frequent bladder emptying/cath care 3. Hypochromic normocytic anemia: no acute bleed -monitor -transfuse as needed 4. Hypocalcemia: nutritional +/- inflammation +/- other -nutrition optimization -as above Thank you. Patient seen and examined in collaboration with Dr. Mike Mota. Problems: Subjective 24 Hr Interval Summary Pending discharge to snf. Feels well. No fevers, chills, sob, congested cough, cp, palpitations, gar, dizziness, n/v/d/dysuria, excessive wound drainage. Exam/Review of Systems Vital Signs Vitals Vital Signs Date Time Temp Pulse Resp B/P Pulse Ox O2 Delivery O2 Flow Rate FiO2 05/12/17 08:00 98.9 94 18 98/57 92 05/10/17 10:21 21 Intake and Output 05/11/17 05/11/17 05/12/17 15:00 23:00 07:00 Intake Total 830 ml 480 ml Output Total 400 ml 500 ml Balance 430 ml -20 ml Exam Free Text/Dictation Constitutional: alert, oriented Psych: nl mood/affect, Head: atraumatic, normocephalic Eyes: nl lids, nl sclera ENMT: mucosa pink and moist, nl nasal mucosa & septum Neck: non-tender, supple Respiratory: diminished breath sounds Cardiovascular: nl pulses, regular rate and rhythm Gastrointestinal: non-tender, soft Genitourinary - Female: nl external genitalia Musculoskeletal: muscle weakness, other (bilat foot drop), No muscle tone Extremities: normal pulses, No edema 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: nl mental status, nl speech, other (paraplegia; hand contractures ) Skin: other (hip and ischial wounds (packed; no odor, min drainage)) Results Result Diagram: 05/12/17 0437 JOAN CARLSON NP May 12, 2017 16:55
== END 2017-05-12 19:42 | disposition home or self-care (01) | DRG 853 ==
LOC: E/R 10:44 → PP2 13:31
PROVIDERS: ADMIT Internal Medicine; ATTEND Internal Medicine
PROC: 0QB30ZZ Excision of Left Pelvic Bone, Open Approach (ICD-10-PCS; principal; 2017-04-29)
PROC: 0QB20ZZ Excision of Right Pelvic Bone, Open Approach (ICD-10-PCS; 2017-04-29)
DX: A41.51 Sepsis due to Escherichia coli [E. coli] (principal); J96.01 Acute respiratory failure with hypoxia; G82.50 Quadriplegia, unspecified; L89.154 Pressure ulcer of sacral region, stage 4; L89.224 Pressure ulcer of left hip, stage 4; J18.9 Pneumonia, unspecified organism; L89.113 Pressure ulcer of right upper back, stage 3; N39.0 Urinary tract infection, site not specified; J98.11 Atelectasis; N31.2 Flaccid neuropathic bladder, not elsewhere classified; Z79.02 Long term (current) use of antithrombotics/antiplatelets; Z87.898 Personal history of other specified conditions; Z72.0 Tobacco use; J43.8 Other emphysema; B96.4 Proteus (mirabilis) (morganii) as the cause of diseases classified elsewhere; Z16.12 Extended spectrum beta lactamase (ESBL) resistance; Z74.01 Bed confinement status
CPT/HCPCS: 36415; 36600; 71010; 71275; 80053; 80061; 80307; 81001; 82565; 82728; 82803; 83540; 83605; 83735; 83880; 84100; 84439; 84443; 84484; 84520; 85025; 85610; 85730; 87040; 87070; 87081; 87086; 93005; 93970; 94640; 94664; 96374; 96375; J0692; J0696; J1335; J2270; J2405; J3370; J7030; J7040; Q9967

== ENCOUNTER 2017-09-16 06:01 | Inpatient (IN) | END 2017-09-20 20:00 | DRG 871 ==

== ENCOUNTER 2018-03-31 12:00 | Emergency (ER) | END 2018-03-31 17:45 | disposition home or self-care (01) ==

== ENCOUNTER 2018-06-11 15:25 | Emergency (ER) | END 2018-06-11 18:24 | disposition home or self-care (01) ==

== ENCOUNTER 2018-07-18 07:28 | Day surgery (SDC) | payer OTHER ==
[2018-07-18] VITALS (13 sets, daily range): BP systolic 83–127; BP diastolic 50–73; PULSE 72–93; RESP 13–20; Ht 165.1 cm; Wt 51.2 kg
[~2018-07-18] VITALS: Ht 165.1 cm; Wt 51.2 kg
[~2018-07-18 07:28] MED LIST: ACET325T33 PO; ALBU2.5V3 NEB; ARGI1POW19 PO; ASC500 PO; BACL10TA PO; BISA10SU75 PR; CRAN425C6 PO; DOCU-144 PO; FAMO20TA18 PO; GABA-526 PO; HYDR-4011 PO; MAGN400O19 PO; MIDO10TA PO; NA P230E RC; NITR-58 PO; RIVA20TA5 PO; SILV20CR12 TOP; [UNRECOGNIZED DRUG - CODE] PO
[2018-07-18] MEDS ORDERED: IOHEXOL 300MG/ML 30 ML BTL ONE (11:53)
--- NOTE | 2018-07-18 12:08 | HPN ---
Date/Time of Note Date/Time of Note DATE: 07/18/18 TIME: 12:08 Interval H&P Admission Note Pt. seen H&P reviewed: No system changes MONICA GIFFORD Jul 18, 2018 12:08
--- NOTE | 2018-07-18 12:13 | PREAC ---
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 cerebral palsy ) Heme: Other (hx of thrombosis ) Surgery & Anesthesia Issues No known issue Meds Anticoagulation: No Beta Dez within 24 hr: No Reason Beta Dez not given: Pt. not on B-Dez Reported Medications Rivaroxaban* (Xarelto*) 20 Mg Tablet, 20 MG PO WITH DINNER, TAB 06/11/18 Ascorbic Acid (Vitamin C) 500 Mg Tab, 500 MG PO DAILY, TAB 06/11/18 Acetaminophen* (Tylenol*) 325 Mg Tablet, 650 MG PO Q4H PRN for MILD PAIN LEVEL 1-3, TAB 06/11/18 Hydrocodone/Acetaminophen ([place] 5-325 Tablet) 1 Each Tablet, 1 EACH PO Q4H PRN for PAIN 7-1010, TAB 06/11/18 Magnesium Hydroxide* (Milk Of Magnesia*) 400 Mg/5 Ml Oral.susp, 30 ML PO DAILY, ML 06/11/18 Midodrine* (Midodrine*) 10 Mg Tablet, 10 MG PO Q8H, TAB 06/11/18 Gabapentin* (Gabapentin*) 600 Mg Tablet, 600 MG PO TID, #90 TAB 06/11/18 Na Phos,M-B/Na Phos,Di-Ba (Fleet Enema Extra) 230 Ml Enema, 118 ML RC NEEDED, ENEMA 06/11/18 Famotidine* (Famotidine*) 20 Mg Tablet, 20 MG PO QHS, #30 TAB 06/11/18 Lactose-Reduced Food (Ensure Active Heart Health) 237 Ml Liquid, 237 ML PO WITH MEALS 06/11/18 Docusate Sodium* (Colace*) 100 Mg Capsule, 100 MG PO BID, #60 CAP 06/11/18 Cranberry Extract (Cranberry) 425 Mg Capsule, 425 MG PO DAILY, CAP 06/11/18 Bisacodyl* (Bisacodyl*) 10 Mg Supp, 10 MG TN DAILY, SUPP 06/11/18 Baclofen* (Baclofen*) 10 Mg Tablet, 10 MG PO QID, TAB 06/11/18 Arginine/Ascorbate Sod/Tray AC (Arginaid Powder) 1 Each Powd.pack, 1 EACH PO DAILY 06/11/18 Albuterol Sulfate* (Albuterol Sulfate* Neb) 0.083%-3 Ml Neb, 2.5 MG NEB Q6H PRN for WHEEZING AND SOB, #30 VIAL 06/11/18 Discontinued Reported Medications Silver Sulfadiazine* (Silvadene*) 1% - 20 Gm Cream.gm., 1 APPLIC TOP DAILY, #1 TUB 06/11/18 Discontinued Scripts Nitrofurantoin Monohyd Macrocr* (Macrobid*) 100 Mg Capsr, 100 MG PO BID for 10 Days, CAP Prov:WENDY DYSON MD 06/11/18 Meds reviewed: Yes Allergies Coded Allergies: iodine (Verified Allergy, Unknown, 07/18/18) shellfish derived (Verified Allergy, Unknown, 06/11/18) Allergies Reviewed: Yes Labs/Studies Labs Reviewed: Reviewed by anesthesiologist test: N/A Pre-procedure Exam Last vitals Vital Signs Date Temp Pulse Resp B/P (MAP) Pulse Ox O2 O2 Flow FiO2 Time Delivery Rate 07/18/18 96.9 72 18 83/50 (61) 97 Room Air 09:27 Airway: Adequate mouth opening, Adequate thyromental dist Mallampati: Mallampati IV Teeth: Normal Lung: Normal Heart: Normal ASA Physical Status ASA physical status: 4 Emergency: None Pre-operative Attestations Prior to commencing anesthesia and surgery, the patient was re-evaluated, there was verification of: *The patient's identity *The results of appropriate recent lab work and preoperative vital signs *The above evaluation not changing prior to induction *Anesthetic plan, risk benefits, alternative and complications discussed with patient/family; questions answered; patient/family understands, accepts and wishes to proceed. CRYSTAL MICHEL DO Jul 18, 2018 12:13
[2018-07-18] MEDS ORDERED: ETOMIDATE 20 MG INJ ONE (12:17)
[2018-07-18] MEDS ORDERED: MIDAZOLAM 1 MG/ML 2 ML INJ ONE (12:17)
[2018-07-18] MEDS ORDERED: DEXAMETHASONE 4 MG/ML 5 ML INJ ONE (12:45)
[2018-07-18] MEDS ORDERED: BUPIVACAINE 0.5% (SDV) 30 ML INJ ONE (12:49)
[2018-07-18] MEDS ORDERED: LIDOCAINE 1% (MPF) 30 ML INJ ONE (12:49)
[2018-07-18] MEDS ORDERED: CIPROFLOXACIN 400MG/D5W 200 ML ONE (12:50)
[2018-07-18] MEDS ORDERED: FLUMAZENIL 0.5 MG INJ ONE (12:58)
--- NOTE | 2018-07-18 13:14 | PAC ---
Date/Time of Note Date/Time of Note DATE: 07/18/18 TIME: 13:14 Post-Anesthesia Notes Post-Anesthesia Note Last documented vital signs Vital Signs Date Temp Pulse Resp B/P (MAP) Pulse Ox O2 O2 Flow FiO2 Time Delivery Rate 07/18/18 98 77 20 110/75 97 13:15 07/18/18 72 18 83/50 (61) 97 Room Air 09:27 Activity: WNL Respiratory function: WNL Cardiovascular function: WNL Mental status: Baseline Pain reasonably controlled: Yes Hydration appropriate: Yes Nausea/Vomiting absent: Yes CRYSTAL MICHEL DO Jul 18, 2018 13:14
[2018-07-18] MEDS ORDERED: HYDROmorphONE 1 MG/5 ML IV SYRINGE IV PRN ×2 (13:30)
--- NOTE | 2018-07-18 14:38 | PDOCDIS ---
Discharge Instructions CONDITION [id number] Patient Condition: [id number] Good HOME CARE INSTRUCTIONS: [id number] Diet Instructions: [id number] Reduced Calorie ACTIVITY: [id number] Activity Restrictions: [id number] Slowly Increase Activity [id number] Bathing Restrictions: [id number] Shower FOLLOW UP/APPOINTMENTS Follow-up Plan one month REFERRALS Zhou Referring Provider: MONICA Mann OTHER ORDERS: Other Orders: Supra pubic tube to gravity drainage SCHOOL/WORK RELEASE May return to School/Work on: Jul 18, 2018 MONICA GIFFORD Jul 18, 2018 14:38
--- NOTE | 2018-07-18 14:43 | OPR ---
Date/Time of Note Date/Time of Note DATE: 07/18/18 TIME: 14:40 Operative Report Procedure Date: Jul 18, 2018 Preoperative Diagnosis Neurogenic blader and urethral erosion Postoperative Diagnosis same Operation/Procedure Performed insertion spt Surgeon delma [employer] Helper none Anesthesia Type: general Estimated Blood Loss: none Transfusion none Specimen none Grafts/Implants none Tubes/Drains 14 f spt Complications none Pt Condition Post Procedure: stable Disposition: PACU Indications ngb Procedure Description dict [id number] MONICA GIFFORD Jul 18, 2018 14:43
--- NOTE | 2018-07-18 14:52 | CONS ---
DATE OF ADMISSION: 07/18/2018 DATE OF CONSULTATION: PREOPERATIVE DIAGNOSES: 1. Urethral erosion. 2. Neurogenic bladder. POSTOPERATIVE DIAGNOSES: 1. Urethral erosion. 2. Neurogenic bladder. PROCEDURES: Cystoscopy, pelvic examination under anesthesia, aspiration of bladder, insertion of sup rapubic tube. SURGEON: Fili Gifford MD ANESTHESIA: General. COMPLICATIONS: None. ESTIMATED BLOOD LOSS: None. DRAINS: 14-Faroese suprapubic tube. PROCEDURE IN DETAILS: The patient was brought into the operating room and placed on the operating ro om table in the modified lithotomy position. Her previously placed Jacques catheter was removed. The pelvic examination under anesthesia demonstrated marked amount of urethral erosion with erosion of th e urethra to the level of the bladder opening. The cystoscope was inserted into the bladder with dis tention of the bladder fluid that was noted to extrude out of the opening of her bladder neck. The b ladder was and then an aspiration of the bladder was undertaken through the infrapubic region 1 fingerbreadth above the pelvic bone with a spinal needle which went directly into the bladder. This allowed for guidance of the 14-Faroese suprapubic tube Malecot which was placed directly into the lonnie dder and confirmed under direct vision in aspiration. The suprapubic tube was tied to the skin with a 0 silk suture and the area was instilled with 10 mL of 0.5% Marcaine without epinephrine. She tole rated the procedure well and was transferred to recovery room in stable condition to follow up in the office in 1 month's time for exchange of suprapubic tube and was discharged home on Tebbetts 5/325 one tab p.o. q.6 hours p.r.n., dispensed #20, no refill. Dictated By: FILI GIFFORD MD EGR/NTS Conf#: [id number] DID#: [id number]
== END 2018-07-18 16:30 | disposition home or self-care (01) ==
LOC: SDS 07:28
PROVIDERS: ATTEND Urology
DX: N21.9 Calculus of lower urinary tract, unspecified (principal); N36.8 Other specified disorders of urethra
CPT/HCPCS: 52000; J0744; J1100; J2250; Z7610; Q9967

== ENCOUNTER 2018-10-17 08:59 | Day surgery (SDC) | payer OTHER ==
[~2018-10-17] VITALS: Ht 157.5 cm; Wt 59.0 kg
[2018-10-17] VITALS (11 sets, daily range): BP systolic 85–140; BP diastolic 58–86; PULSE 71–108; RESP 15–20; Ht 157.5 cm; Wt 59.0 kg
[~2018-10-17 08:59] MED LIST changes: +DEXAMETHASONE 4 MG/ML 5 ML INJ ONE; +ERTAPENEM SODIUM 1 GM in SOD CHLORIDE 0.9% 100 ML IVPB ONE; -NITR-58 PO; -SILV20CR12 TOP
[2018-10-17] MEDS ORDERED: PROPOFOL 20 ML ONE (10:20)
[2018-10-17] MEDS ORDERED: METOCLOPRAMIDE 10 MG INJ ONE (10:20)
[2018-10-17] MEDS ORDERED: LIDOCAINE 2% (SDV) 5 ML INJ ONE (10:20)
[2018-10-17] MEDS ORDERED: FENTAnyl 50 MCG/ML VIAL ONE (10:20)
[2018-10-17] MEDS ORDERED: ONDANSETRON 4 MG INJ ONE (10:20)
[2018-10-17] MEDS ORDERED: MIDAZOLAM 1 MG/ML 2 ML INJ ONE (10:20)
[2018-10-17] MEDS ORDERED: CEFAZOLIN 1 GM INJ ONE (10:21)
--- NOTE | 2018-10-17 11:13 | HPN ---
Date/Time of Note Date/Time of Note DATE: 10/17/18 TIME: 11:13 Interval H&P Admission Note Pt. seen H&P reviewed: No system changes MONICA GIFFORD Oct 17, 2018 11:13
--- NOTE | 2018-10-17 11:23 | PREAC ---
Date/Time of Note Date/Time of Note DATE: 10/17/18 TIME: 11:21 Anesthesia Eval and Record Evaluation Time Pre-Procedure Interview DATE: 10/17/18 TIME: 11:21 Age 58 Sex female NPO: 8 hrs Preoperative diagnosis neurogenic bladder Planned procedure suprapubic catheter placement Past Medical History Past Medical History: Includes Cardio: HTN Pulm: COPD Renal: Other (neurogenic bladder) GI: GERD Heme: Anemia, Coagulation disorder Psych: Depression, Anxiety Surgery & Anesthesia Issues No known issue Meds Anticoagulation: No Beta Dez within 24 hr: No Reason Beta Dez not given: Pt. not on B-Dez Reported Medications Rivaroxaban* (Xarelto*) 20 Mg Tablet, 20 MG PO WITH DINNER, TAB 06/11/18 Ascorbic Acid (Vitamin C) 500 Mg Tab, 500 MG PO DAILY, TAB 06/11/18 Acetaminophen* (Tylenol*) 325 Mg Tablet, 650 MG PO Q4H PRN for MILD PAIN LEVEL 1-3, TAB 06/11/18 Hydrocodone/Acetaminophen ([place] 5-325 Tablet) 1 Each Tablet, 1 EACH PO Q4H PRN for PAIN 7-04/04, TAB 06/11/18 Magnesium Hydroxide* (Milk Of Magnesia*) 400 Mg/5 Ml Oral.susp, 30 ML PO DAILY, ML 06/11/18 Midodrine* (Midodrine*) 10 Mg Tablet, 10 MG PO Q8H, TAB 06/11/18 Gabapentin* (Gabapentin*) 600 Mg Tablet, 600 MG PO TID, #90 TAB 06/11/18 Na Phos,M-B/Na Phos,Di-Ba (Fleet Enema Extra) 230 Ml Enema, 118 ML RC NEEDED, ENEMA 06/11/18 Famotidine* (Famotidine*) 20 Mg Tablet, 20 MG PO QHS, #30 TAB 06/11/18 Lactose-Reduced Food (Ensure Active Heart Health) 237 Ml Liquid, 237 ML PO WITH MEALS 06/11/18 Docusate Sodium* (Colace*) 100 Mg Capsule, 100 MG PO BID, #60 CAP 06/11/18 Cranberry Extract (Cranberry) 425 Mg Capsule, 425 MG PO DAILY, CAP 06/11/18 Bisacodyl* (Bisacodyl*) 10 Mg Supp, 10 MG [place] DAILY, SUPP 06/11/18 Baclofen* (Baclofen*) 10 Mg Tablet, 10 MG PO QID, TAB 06/11/18 Albuterol Sulfate* (Albuterol Sulfate* Neb) 0.083%-3 Ml Neb, 2.5 MG NEB Q6H PRN for WHEEZING AND SOB, #30 VIAL 06/11/18 Discontinued Reported Medications Arginine/Ascorbate Sod/Tray AC (Arginaid Powder) 1 Each Powd.pack, 1 EACH PO DAILY 06/11/18 Meds reviewed: Yes Allergies Coded Allergies: iodine (Verified Allergy, Unknown, 10/17/18) shellfish derived (Verified Allergy, Unknown, 10/17/18) Allergies Reviewed: Yes Labs/Studies Labs Reviewed: Reviewed by anesthesiologist test: Negative Studies: ECG, CXR Pre-procedure Exam Last vitals Vital Signs Date Temp Pulse Resp B/P (MAP) Pulse Ox O2 O2 Flow FiO2 Time Delivery Rate 10/17/18 97.0 71 18 85/58 (67) 95 10:46 Airway: Adequate mouth opening, Adequate thyromental dist Mallampati: Mallampati III Teeth: Normal Lung: Normal Heart: Normal ASA Physical Status ASA physical status: 3 Emergency: None Planned Anesthetic General/MAC: LMA Planned Pain Management Parenteral pain med, Local by surgeon Pre-operative Attestations Prior to commencing anesthesia and surgery, the patient was re-evaluated, there was verification of: *The patient's identity *The results of appropriate recent lab work and preoperative vital signs *The above evaluation not changing prior to induction *Anesthetic plan, risk benefits, alternative and complications discussed with patient/family; questions answered; patient/family understands, accepts and wishes to proceed. SINCERE YANG MD Oct 17, 2018 11:23
[2018-10-17] MEDS ORDERED: KETOROLAC 30 MG INJ IV PRN (11:30)
[2018-10-17] MEDS ORDERED: DIPHENHYDRAMINE 50 MG INJ IV PRN (11:30)
[2018-10-17] MEDS ORDERED: IPRATROPIUM (NEB) 0.5 MG/2.5 ML AMP HHN PRN (11:30)
[2018-10-17] MEDS ORDERED: LEVALBUTEROL (NEB) 1.25 MG/0.5 ML AMP HHN PRN (11:30)
[2018-10-17] MEDS ORDERED: FENTAnyl 50 MCG/ML VIAL IV PRN ×2 (11:30)
[2018-10-17] MEDS ORDERED: HYDROmorphONE 1 MG/5 ML IV SYRINGE IV PRN ×2 (11:30)
[2018-10-17] MEDS ORDERED: MEPERIDINE 25 MG INJ IV PRN (11:30)
[2018-10-17] MEDS ORDERED: MIDAZOLAM 1 MG/ML 2 ML INJ IV PRN (11:30)
[2018-10-17] MEDS ORDERED: ONDANSETRON 4 MG INJ IV PRN (11:30)
--- NOTE | 2018-10-17 12:37 | PDOCDIS ---
Discharge Instructions DIAGNOSIS Discharge Diagnosis neurogenic bladder CONDITION [id number] Patient Condition: [id number] Good HOME CARE INSTRUCTIONS: Zhou Diet Instructions: Lizabeth Regular ACTIVITY: Zhou Activity Restrictions: Lizabeth No Restrictions Zohu Bathing Restrictions: [id number] Shower FOLLOW UP/APPOINTMENTS Follow-up Plan 1 month for exchange of supra pubic tube, call for date and time REFERRALS Zhou Referring Provider: MONICA Mann Other Referrals None MONICA GIFFORD Oct 17, 2018 12:37
--- NOTE | 2018-10-17 12:40 | OPR ---
Date/Time of Note Date/Time of Note DATE: 10/17/18 TIME: 12:38 Operative Report Procedure Date: Oct 17, 2018 Preoperative Diagnosis Neurogenic bladder and urethral erosion Postoperative Diagnosis Same Operation/Procedure Performed cysto, aspiration of bladder,insertion supra pubic tube Surgeon Darius Combine Operator none Anesthesia Type: general Estimated Blood Loss: minimal Transfusion none Specimen none Grafts/Implants none Tubes/Drains 14 f supra pubic tube Complications none Pt Condition Post Procedure: critical Disposition: PACU Indications neurogenic bladder Procedure Description dict [id number] MONICA GIFFORD Oct 17, 2018 12:40
--- NOTE | 2018-10-17 15:40 | OPR ---
DATE OF OPERATION: 10/17/2018 PREOPERATIVE DIAGNOSIS: Neurogenic bladder. POSTOPERATIVE DIAGNOSES: 1. Neurogenic bladder. 2. Erosion of urethra and bladder neck. SURGEON: iFli Gifford MD ANESTHESIA: General. COMPLICATIONS: None. PROCEDURE: Cystoscopy, aspiration, bladder insertion of suprapubic tube. DRAINS: A 14-Gambian suprapubic tube. DESCRIPTION OF PROCEDURE: The patient was brought into the operating room and placed on the operatin g table in a supine lithotomy position. She was prepped and draped in the usual fashion after anesth esia was induced. A timeout was undertaken. Appropriate pressure points were padded. She received preoperative antibiotic therapy and sequential compression devices were applied. The previously plac ed Jacques catheter was noted to reside within the vagina. This was subsequently removed. Physical ex amination demonstrates a marked inflammatory response within her anterior vaginal wall. With further evaluation, this is consistent with erosion of the urethra. Utilizing a 12-degree and 30-degree ang led lens, rigid cystoscopy was undertaken. The patient has complete erosion of her urethra up to the level of the bladder neck. A limited instillation of fluid could be placed which was assisted with occlusion of the bladder neck with a finger being placed at the level of the bladder neck. Under dir ect vision, a 22-gauge spinal needle was placed in the infrapubic region and went directly on the fir st pass into the dome of the bladder. This was noted on direct vision and aspiration of clear fluid. Utilizing a 15-blade needle, a 5 mm incision was created in the skin adjacent to the needle and jhonatan ing the same course of the spinal needle on the first pass, a 14 Gambian Malecot suprapubic tube was p laced into the bladder. This was confirmed under direct vision and aspiration of the fluid. The tro car was removed, which then allowed for advancement of the suprapubic tube for an additional 1 cm. T he suprapubic tube was noted to be in proper anatomical position residing within the lumen of the lonnie dder and entering through the dome of the bladder. The suprapubic tube was then tied down to the ski n with 2 stitches of 0 silk suture as well as with tape. She was then transferred to recovery room i n stable condition with a suprapubic tube to a leg bag. She will follow up in the office in 1-month period of time for exchange. Should significant incontinence persists, she may then benefit from def initive surgery. She may then benefit from additional intervention. She tolerated this well. There were no noted complications. Dictated By: FILI GIFFORD MD EGR/NTS Conf#: [id number] DID#: [id number]
== END 2018-10-17 14:14 | disposition home or self-care (01) ==
LOC: SDS 08:59
PROVIDERS: ATTEND Urology
DX: N31.9 Neuromuscular dysfunction of bladder, unspecified (principal); N36.8 Other specified disorders of urethra; G82.50 Quadriplegia, unspecified; Z87.440 Personal history of urinary (tract) infections; F17.210 Nicotine dependence, cigarettes, uncomplicated
CPT/HCPCS: 51040; J0690; J1335; J2250; J2405; J2765; J3010; Z7512; Z7610; J1100

== ENCOUNTER 2018-11-11 20:36 | Emergency (ER) | payer OTHER ==
[~2018-11-11] VITALS: Ht 165.1 cm; Wt 58.2 kg
[~2018-11-11 20:36] MED LIST changes: -ARGI1POW19 PO; -DEXAMETHASONE 4 MG/ML 5 ML INJ ONE; -ERTAPENEM SODIUM 1 GM in SOD CHLORIDE 0.9% 100 ML IVPB ONE
[2018-11-11 20:51] VITALS: Ht 165.1 cm; Wt 58.2 kg
[2018-11-11] MEDS ORDERED: CEFEPIME 1GM/50 ML (PMX) 50 ML IVPB ONE (23:00)
[2018-11-11] MEDS ORDERED: CEFE1PIG IVPB (23:49)
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
[2018-11-11] MEDS ORDERED: SOD CHLORIDE 0.9% 1,000 ML IV STA (23:54)
[2018-11-12 02:35] VITALS: BP 98/66; PULSE 77; RESP 16
== END 2018-11-12 02:40 | disposition home or self-care (01) ==
LOC: E/R 20:36
DX: N30.00 Acute cystitis without hematuria (principal)
CPT/HCPCS: 81001; 87086; 96361; 96365; J0692; J7030; Z7502

== ENCOUNTER 2019-02-05 16:34 | Emergency (ER) | payer OTHER ==
[~2019-02-05] VITALS: Ht 157.5 cm; Wt 61.0 kg
[~2019-02-05 16:34] MED LIST changes: +CEFE1PIG IVPB; +NITR-58 PO
[2019-02-05 16:40] VITALS: Ht 157.5 cm; Wt 61.0 kg
[2019-02-05] MEDS ORDERED: IPRATROPIUM (NEB) 0.5 MG/2.5 ML AMP NEB STA (16:54)
[2019-02-05] MEDS ORDERED: ALBUTEROL 0.083% (NEB) 2.5 MG/3 ML AMP NEB STA (16:54)
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
[2019-02-05 18:56] VITALS: BP 100/65; PULSE 94; RESP 18
== END 2019-02-05 19:07 | disposition home or self-care (01) ==
LOC: E/R 16:34
DX: T83.090A Other mechanical complication of cystostomy catheter, initial encounter (principal); Y73.2 Prosthetic and other implants, materials and accessory gastroenterology and urology devices associated with adverse incidents
CPT/HCPCS: 51702; 94664; Z7502; Z7610

== ENCOUNTER 2019-04-27 14:09 | Emergency (ER) | payer OTHER ==
[~2019-04-27] VITALS: Ht 157.5 cm; Wt 63.6 kg
[~2019-04-27 14:09] MED LIST changes: -ACET325T33 PO; -ALBU2.5V3 NEB; -ASC500 PO; -BISA10SU75 PR; -CEFE1PIG IVPB; -CRAN425C6 PO; -FAMO20TA18 PO; -MAGN400O19 PO; -NA P230E RC; -[UNRECOGNIZED DRUG - CODE] PO
[2019-04-27 14:32] VITALS: Ht 157.5 cm; Wt 63.6 kg
[2019-04-27 18:58] VITALS: BP 96/62; PULSE 84; RESP 16
== END 2019-04-27 19:00 | disposition home or self-care (01) ==
LOC: E/R 14:09
DX: T83.010A Breakdown (mechanical) of cystostomy catheter, initial encounter (principal); G82.50 Quadriplegia, unspecified; R40.2142 Coma scale, eyes open, spontaneous, at arrival to emergency department; R40.2362 Coma scale, best motor response, obeys commands, at arrival to emergency department; R40.2252 Coma scale, best verbal response, oriented, at arrival to emergency department; Y73.2 Prosthetic and other implants, materials and accessory gastroenterology and urology devices associated with adverse incidents